=== PATIENT | male | born 1935 | race African-American/Black ===

== ENCOUNTER 2018-04-05 11:00 | Outpatient (CLI) | payer MEDICARE | END 2018-04-05 11:01 | disposition home or self-care (01) | LOC: BICRAD 11:00 | PROVIDERS: ATTEND Family Medicine | DX: R60.9 Edema, unspecified (principal); I10 Essential (primary) hypertension; J90 Pleural effusion, not elsewhere classified; I70.0 Atherosclerosis of aorta; I77.819 Aortic ectasia, unspecified site | CPT/HCPCS: 36415; 71046; 80048; 80061; 82043; 83036; 83880 ==

== ENCOUNTER 2018-07-09 15:14 | Observation (INO) | payer MEDICARE ==
[2018-07-09 16:00] LABS: #Eosinphils 0.1 thou/uL (0.0-0.7); #Lymphocytes 1.4 thou/uL (1.20-3.40); #Monocytes 0.4 thou/uL (0.11-0.59); #Neutrophils 4.7 thou/uL (1.40-6.50); %Basophils 0.4 % (0.0-1.0); %Lymphocytes 20.9 % (21.0-51.0); %Monocytes 5.5 % (0.0-10.0); %Neutrophils 71.3 % (42.0-75.0); Hemoglobin 9.3 g/dL (14.0-18.0); Mean Corpuscular HGB CONC 32.5 g/dL (32.0-36.0); Mean Corpuscular Hemoglobin 29.3 pg (27.0-31.0); Mean Corpuscular Volume 90.1 fL (78.0-98.0); Mean Platelet Volume 8.9 fL (7.4-10.4); Platelet Count 231 thou/uL (130-400); RBC Distribution Width 12.5 % (11.5-14.5); Red Blood Cell (RBC) Count 3.16 mill/uL (4.70-6.10); White Blood Cell (WBC) Count 6.6 thou/uL (4.8-10.8)
[2018-07-09 16:20] LABS: ALT (SGPT) 11 U/L (8-55); AST (SGOT) 13 U/L (5-34); Albumin 3.7 g/dL (3.4-4.8); Alkaline Phosphatase 77 U/L (40-150); Anion Gap 13 mmol/L (10-20); BUN (Urea Nitrogen) 37 mg/dL (8.4-25.7); Bilirubin, Total 0.6 mg/dL (0.2-1.2); Calc. Creatinine Clearance 0 mL/min (70-130); Calcium 9.2 mg/dL (7.8-10.44); Carbon Dioxide 24 mmol/L (23-31); Chloride 107 mmol/L (98-107); Estimated GFR-MDRD 40; Globulin 3.1 g/dL (2.4-3.5); Glucose 143 mg/dL (83-110); Potassium 4.4 mmol/L (3.5-5.1); Protein, Total 6.8 g/dL (5.8-8.1); Sodium 140 mmol/L (136-145)
[2018-07-09 16:24] LABS: Troponin I 0.075 ng/mL (< 0.028)
--- NOTE | 2018-07-09 16:30 | RAD ---
ONE VIEW CHEST: Comparison: 04-05-18 History: Cough. FINDINGS: Enlarged cardiac silhouette. Pulmonary vessels and hilum are normal. Right costophrenic angle is rylan r. Minimal blunting of the left costophrenic angle. Chronic changes in the lung parenchyma, without c onsolidation or mass. No pneumothorax or osseous abnormality. IMPRESSION: Minimal blunting of the left costophrenic angle likely due to small effusion or atelectasis. POS: [facility]
[2018-07-09 16:53] LABS: Bilirubin Negative (Negative); Blood, Urine Negative (Negative); Clarity CLEAR (Clear); Glucose, Urine (Dipstick) Negative (Negative); Leukocyte Negative (Negative); Nitrite Negative (Negative); Protein, Urine (Dipstick) 30 mg/dL (Neg-Trace); Specific Gravity, Urine 1.012 (1.002-1.036); Urobilinogen 0.2 mg/dL (0.2-1.0)
[2018-07-09 16:59] LABS: Bacteria/HPF None Seen HPF (None Seen); Hyaline Casts/LPF 4-6 HYALINE CAST LPF (0-3 Hyaline); Pathc Cast-AUWi Flag 0.58 (0-2.49); Squamous Epithelial None Seen HPF (0-3); WBC/HPF None Seen HPF (0-3)
[2018-07-09 19:13] LABS: Troponin I 0.067 ng/mL (< 0.028)
[2018-07-09] MEDS ORDERED: Ondansetron ODT 4 MG TAB SL PRN (20:30)
[2018-07-09] MEDS ORDERED: Acetaminophen 325 MG TAB PO PRN ×2 (20:30→21:02)
[2018-07-09] MEDS ORDERED: Ondansetron PF 4 MG/2 ML Vial IVP PRN (20:30)
[2018-07-09] MEDS ORDERED: hydrALAZINE 20 MG/ML VIAL SLOW IVP PRN (21:00)
[2018-07-09] MEDS ORDERED: Labetalol HCl 100 MG/20 ML VIAL SLOW IVP PRN (21:00)
[2018-07-09] MEDS ORDERED: Senokot S 8.6-50 MG TAB PO PRN (21:02)
[2018-07-09] MEDS ORDERED: Nitroglycerin 0.4 MG TAB (25 Tab Bottle) PO PRN (21:02)
[2018-07-09] MEDS ORDERED: Carvedilol 25 MG TAB PO SCH (21:15)
[2018-07-09] MEDS ORDERED: guaiFENesin ER 600 MG TAB PO SCH (21:15)
[2018-07-09 22:15] LABS: Troponin I 0.073 ng/mL (< 0.028)
[2018-07-09 23:30] VITALS: BMI 33.7
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
[2018-07-10 05:18] LABS: Anion Gap 14 mmol/L (10-20); BUN (Urea Nitrogen) 36 mg/dL (8.4-25.7); Calc. Creatinine Clearance 61 mL/min (70-130); Calcium 9.3 mg/dL (7.8-10.44); Carbon Dioxide 24 mmol/L (23-31); Chloride 107 mmol/L (98-107); Estimated GFR-MDRD 52; Glucose 93 mg/dL (83-110); Magnesium 1.7 mg/dL (1.6-2.6); Sodium 141 mmol/L (136-145)
[2018-07-10] MEDS ORDERED: Carvedilol 25 MG TAB PO SCH (08:00)
[2018-07-10] MEDS ORDERED: Chlorthalidone 25 MG TAB PO SCH (09:00)
[2018-07-10] MEDS ORDERED: AZILSARTAN MED PO SCH (09:00)
[2018-07-10] MEDS ORDERED: guaiFENesin ER 600 MG TAB PO SCH (09:00)
[2018-07-10] MEDS ORDERED: Aspirin 325 MG TAB PO SCH (09:00)
[2018-07-10] MEDS ORDERED: Aspirin 81 mg Enteric Coated Tablet PO SCH (09:00)
[2018-07-10] MEDS ORDERED: Isosorbide Dinitrate 20 MG TAB PO SCH (09:00)
[2018-07-10] MEDS ORDERED: Losartan 25 MG TAB PO SCH (09:00)
[2018-07-10] MEDS ORDERED: hydrALAZINE 25 MG TAB PO SCH (09:00)
[2018-07-10] MEDS ORDERED: CHLORTHALIDONE PO SCH (09:00)
[2018-07-10] MEDS ORDERED: Non-Formulary Item 1 EACH (Isosorb Dinit/Hydralazine Hcl [Bidil] 1 TABLET) PO SCH (09:00)
--- NOTE | 2018-07-10 10:07 | ULT ---
ULTRASOUND WITH DOPPLER DUPLEX VENOUS LOWER EXTREMITY BILATERAL: CPT: 09167 ICD-10-PCS: B54D HISTORY: Pain/edema. TECHNIQUE: Color flow Doppler, spectral waveform analysis of pulsed Doppler, and smith-scale imaging with gricel brigitte and augmentation, were used to evaluate the bilateral common femoral, femoral, popliteal, television news producer ior tibial, and superficial femoral, veins; and the proximal portions of the profunda femoral and gre ater saphenous, veins. FINDINGS: There is appropriate compressibility and flow within the imaged deep vein system of each lower extrem ity. IMPRESSION: No deep vein thrombosis. POS: [facility]
[2018-07-10 12:16] VITALS: BP 163/72; TEMP 97.8
--- NOTE | 2018-07-10 16:56 | CON ---
DATE OF CONSULTATION: 07/10/2018 HISTORY OF PRESENT ILLNESS: The patient is an 83-year-old gentleman who presented with lightheadedness and dizziness. The patient has a history of cardiomyopathy and was seen several weeks ago for cardiac evaluation. He underwent an echocardiogram, which revealed a mild decrease in left ventricular ejection fraction 45% with diastolic dysfunction. He also underwent a stress test that revealed him to have a mild decreased left ventricular ejection fraction 43% with evidence of inferior scar. The patient has poorly controlled hypertension. He has been placed on several different medications. The patient has been on Coreg and Edarbyclor. The patient most recently was started on Nifedipine. The patient presented with dizziness and lightheadedness. The patient denied having any chest discomfort. The patient denies having any PND or orthopnea. PAST MEDICAL HISTORY: 1. Cardiomyopathy. 2. Poorly controlled hypertension. 3. Diabetes mellitus. 4. Chronic lymphocytic leukemia. 5. Diverticulosis. PAST SURGICAL HISTORY: Hernia surgery,and cataract surgery. ALLERGIES: CODEINE. MEDICATIONS ON ADMISSION: Lasix 40 daily, BiDil 20/37.5 t.i.d., Edarbyclor 40/ 12.5 daily, Lasix 40 daily, potassium 10 daily, metformin 1000 b.i.d., aspirin 81 daily. SOCIAL HISTORY: Nonsmoker. FAMILY HISTORY: Positive family history of heart disease. PHYSICAL EXAMINATION: GENERAL: This is a well-developed gentleman in no acute distress. VITAL SIGNS: Blood pressure 163/72. NECK: No jugular venous distention. LUNGS: Clear to auscultation. HEART: Regular rate and rhythm. Normal S1, S2. No murmurs. ABDOMEN: Nondistended. EXTREMITIES: Mild bilateral edema. LABORATORY RESULTS: Sodium 141, potassium 4, chloride 107, bicarbonate 24, BUN 36, creatinine is 1.5. BNP is 204. Troponin is 0.075. White blood cell count 3.6, hemoglobin 9.3, hematocrit 28.5, platelets 231. EKG revealed normal sinus rhythm, first-degree AV block, right bundle branch block, and a left anterior fascicular block. IMPRESSION: 1. Near syncope, orthostatic hypotension. 2. Ischemic cardiomyopathy. 3. Hypertension. 4. Chronic renal insufficiency. This gentleman presents with near syncopal episode. His blood pressure was extremely low. From a cardiac standpoint, I agree with discontinuing his nifedipine. We would switch him back from Edarbyclor to losartan. The patient has declined to undergo an invasive cardiac evaluation, so he will continue on medical therapy. PLAN: 1. Discontinue nifedipine. 2. Switch from Edarbyclor back to losartan. 3. Improve compliance with low-sodium diet. 4. Weight loss. ELIZABETH
--- NOTE | 2018-07-10 17:01 | DIS ---
DATE OF DISCHARGE: 07/10/2018 DISCHARGE DISPOSITION: Home. FOLLOWUP: 1. Follow up with primary care physician, Dr. Christian Purdy in 1 week. 2. Follow up with Dr. Joel Zepeda next week. ALLERGIES: The patient is allergic to CODEINE. DISCHARGE MEDICATIONS: Aspirin 81 mg daily, Lasix 40 mg daily, BiDil 1 tablet 3 times a day, metform in 1000 mg b.i.d., potassium chloride 10 mEq daily, losartan 100 mg daily. MEDICATION DISCONTINUED THIS ADMISSION: Procardia-XL as well as Edarbyclor 40/12.5. The patient was advised to restart nifedipine extended release 30 mg daily if his blood pressure pers istently remains elevated. The patient was seen on the day of discharge, denies any new complaints, no chest pain, shortness of breath reported. BRIEF HOSPITAL COURSE: Patient is an 83-year-old male with hypertension, hyperlipidemia and diabetes mellitus type 2, presented to the hospital with a near syncopal episode. His blood pressure at home was systolic 75. He also had intermittent shortness of breath. No chest pain or palpitations repor kayla. He was monitored on the telemetry unit. His serial troponins remained in the indeterminate ran ge with maximum troponin of 0.075. BNP was 205. He was seen by Cardiology, Dr. Zepeda. His medic ations have been optimized as discussed above. Creatinine on admission was 1.94, at discharge was 1. 55. Diuretics have been discontinued. He was advised to monitor his blood pressure on a daily basis and to maintain a log. He will benefit from a repeat base met after 1-2 weeks, primary care physici an advised to follow. FINAL DIAGNOSES: 1. Near-syncopal episode secondary to hypotension. 2. Acute kidney injury, on chronic kidney disease stage 3, improved. 3. Diabetes mellitus type 2. 4. Abnormal electrocardiogram. 5. Elevated troponin secondary to demand ischemia. 6. Chronic anemia. 7. Degenerative joint disease. 8. Recent upper respiratory tract infection. Plan of care was discussed with the patient in detail. He stated understanding.
== END 2018-07-10 14:31 | disposition home or self-care (01) ==
LOC: ERS 15:14 → INTOOBSV 17:50 → 2SW 17:50
PROVIDERS: ADMIT Internal Medicine; ATTEND Internal Medicine
DX: I95.1 Orthostatic hypotension (principal); M19.90 Unspecified osteoarthritis, unspecified site; I12.9 Hypertensive chronic kidney disease with stage 1 through stage 4 chronic kidney disease, or unspecified chronic kidney disease; E11.22 Type 2 diabetes mellitus with diabetic chronic kidney disease; N18.3 Chronic kidney disease, stage 3 (moderate); D63.1 Anemia in chronic kidney disease; N17.9 Acute kidney failure, unspecified; I25.5 Ischemic cardiomyopathy; E78.5 Hyperlipidemia, unspecified; Z85.6 Personal history of leukemia; Z87.891 Personal history of nicotine dependence; Z79.82 Long term (current) use of aspirin; Z79.84 Long term (current) use of oral hypoglycemic drugs; Z79.899 Other long term (current) drug therapy; Z88.5 Allergy status to narcotic agent
CPT/HCPCS: 71045; 80048; 80053; 83605; 83735; 83880; 84484 ×2; 85025; 87040; 87086; 93005; 93970; 94640; 96360; 96361; 97139; 99285; G0378 ×2; 36415; 81003; 81015; J7620

== ENCOUNTER 2018-08-24 10:48 | Outpatient (CLI) | payer MEDICARE ==
[2018-08-24] MEDS ORDERED: ISOVUE-370 76%-LOCM 1 ML ONE (11:10)
--- NOTE | 2018-08-24 13:58 | CT ---
CT CHEST WITH CONTRAST CT ABDOMEN WITH CONTRAST CT PELVIS WITH CONTRAST: Date: 08/24/18 HISTORY: Lymphoma/leukemia. 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 COMPARISON: CT from 08/24/16. FINDINGS: There are enlarging mediastinal lymph nodes. There is a left paratracheal lymph node on axial image 2 6 that measures 12.0 mm in short axis, previously 5.0 mm. Left paratracheal lymph node measures 16.0 mm in short axis, previously 6.0 mm, with a normal fatty hilum. There is a small pericardial effusion , although larger than on the prior examination. No axillary adenopathy. No internal mammary adenopathy. Thyroid is unremarkable. Pulmonary trunk size is normal. The aorta is mildly tortuous. Multiple small pulmonary lung cysts. Moderate layering right pleural effusion. There is bronchiectasi s within the left lower lobe and right lower lobe, likely sequelae of prior infection. No pneumothora x. There is cholelithiasis without evidence of cholecystitis. Liver and spleen are unremarkable. Mild no dular thickening both adrenal glands. There is abnormal focal thickening of the left ureter, axial image 102, at the level of the pelvic br im, new from the comparison examination. It is possible that this could be a lymph node, although the focal dilatation is felt more likely with focal soft tissue thickening. Numerous small retroperitone al periaortic lymph nodes. Aortocaval lymph node axial image 75 measures 7.0 mm in short axis, previo usly 4.0 mm. There is mild third spacing of fluid, which is new. The appendix is felt to be visualize d and is normal. Moderate vascular plaque of the aortoiliac system. Old compression deformity at T11 and T12. No suspicious osteolytic or osteoblastic lesions of the ske leton. No acute displaced rib fracture. IMPRESSION: 1. Interval size increase of mediastinal lymph nodes, as well as mild size increase of retroperitone al periaortic lymph nodes, concerning for disease recurrence. 2. Calcified right paratracheal lymph nodes are similar, likely prior granulomatous disease versus s equelae of prior treatment. 3. Moderate right and small left pleural effusion, as well as third spacing of fluid throughout the abdomen and pelvis, can be seen with congestive heart failure. There is also small, slightly increase d in size pericardial effusion. 4. Abnormal thickened left distal ureter at the pelvic brim. Nonemergent CT Urogram would be benefici al. CODE T. POS: [facility]
== END 2018-08-24 10:49 | disposition home or self-care (01) ==
LOC: BICCT 10:48
PROVIDERS: ATTEND Internal Medicine Medical Oncology
DX: C83.08 Small cell B-cell lymphoma, lymph nodes of multiple sites (principal); J90 Pleural effusion, not elsewhere classified; I31.3 Pericardial effusion (noninflammatory); R93.41 Abnormal radiologic findings on diagnostic imaging of renal pelvis, ureter, or bladder
CPT/HCPCS: 71260; 74177

== ENCOUNTER 2018-09-07 12:06 | Outpatient (CLI) | payer MEDICARE ==
--- NOTE | 2018-09-07 13:02 | RAD ---
CHEST 2 VIEWS: HISTORY: Cough. Dyspnea. COMPARISON: CT from 08/24/2018. FINDINGS: Cardiac silhouette and pulmonary vasculature are unremarkable. Opacity projecting over the right lat eral lung base has the appearance of right basilar infiltrate that has developed since the prior stud y. A small amount of bilateral pleural fluid is again demonstrated. Some atelectasis lateral segmen t right middle lobe. Left lung remains clear aside from minimal linear scarring or atelectasis at th e lateral base. IMPRESSION: 1. Mild right basilar infiltrate with atelectasis in the lateral segment right middle lobe. This corado s developed since the CT exam from 08/24/2018. 2. Small amount of bilateral pleural fluid is stable. POS: [facility]
== END 2018-09-07 12:07 | disposition home or self-care (01) ==
LOC: BICRAD 12:06
PROVIDERS: ATTEND Family Medicine
DX: I10 Essential (primary) hypertension (principal); R05 Cough; R60.9 Edema, unspecified; J98.11 Atelectasis; R91.8 Other nonspecific abnormal finding of lung field
CPT/HCPCS: 36415; 71046; 80048; 85025

== ENCOUNTER 2018-09-08 02:46 | Inpatient (IN) | payer MEDICARE ==
[2018-09-08 03:27] LABS: #Eosinphils 0.1 thou/uL (0.0-0.7); #Lymphocytes 1.5 thou/uL (1.20-3.40); #Monocytes 0.6 thou/uL (0.11-0.59); #Neutrophils 4.6 thou/uL (1.40-6.50); %Basophils 0.7 % (0.0-1.0); %Eosinophils 1.5 % (0.0-10.0); %Lymphocytes 21.6 % (21.0-51.0); %Monocytes 9.4 % (0.0-10.0); %Neutrophils 66.9 % (42.0-75.0); Hemoglobin 9.3 g/dL (14.0-18.0); Mean Corpuscular HGB CONC 31.4 g/dL (32.0-36.0); Mean Corpuscular Hemoglobin 28.5 pg (27.0-31.0); Mean Corpuscular Volume 90.7 fL (78.0-98.0); Mean Platelet Volume 7.9 fL (7.4-10.4); Platelet Count 237 thou/uL (130-400); RBC Distribution Width 14.4 % (11.5-14.5); Red Blood Cell (RBC) Count 3.26 mill/uL (4.70-6.10); White Blood Cell (WBC) Count 6.9 thou/uL (4.8-10.8)
[2018-09-08 03:43] LABS: ALT (SGPT) 33 U/L (8-55); AST (SGOT) 25 U/L (5-34); Albumin 3.5 g/dL (3.4-4.8); Alkaline Phosphatase 75 U/L (40-150); Anion Gap 15 mmol/L (10-20); BUN (Urea Nitrogen) 39 mg/dL (8.4-25.7); Bilirubin, Total 0.8 mg/dL (0.2-1.2); Calc. Creatinine Clearance 0 mL/min (70-130); Calcium 9.2 mg/dL (7.8-10.44); Carbon Dioxide 21 mmol/L (23-31); Chloride 106 mmol/L (98-107); Estimated GFR-MDRD 42; Globulin 3.2 g/dL (2.4-3.5); Glucose 105 mg/dL (83-110); Potassium 4.4 mmol/L (3.5-5.1); Protein, Total 6.7 g/dL (5.8-8.1); Sodium 138 mmol/L (136-145)
[2018-09-08 05:07] LABS: CK (CPK) 177 U/L (30-200); Lipase 11 U/L (8-78)
[2018-09-08 05:24] LABS: CKMB 2.3 ng/mL (0-6.6)
[2018-09-08] MEDS ORDERED: Aspirin Chewable 81 MG TAB ONE (06:23)
[2018-09-08] MEDS ORDERED: Furosemide 40 MG/4 ML VIAL ONE ×2 (06:23→15:19)
[2018-09-08] MEDS ORDERED: Nitroglycerin 2% Ointment 1 INCH/1 GM Packet ONE (06:23)
[2018-09-08 06:44] LABS: Troponin I 0.069 ng/mL (< 0.028)
[2018-09-08] MEDS ORDERED: Dextrose 50% Abboject 50 ML SYRINGE SLOW IVP PRN (07:42)
[2018-09-08] MEDS ORDERED: Ondansetron ODT 4 MG TAB PO PRN (07:42)
[2018-09-08] MEDS ORDERED: Acetaminophen 325 MG TAB PO PRN (07:42)
[2018-09-08] MEDS ORDERED: Dextrose 5% in Water 1,000 ML IV PRN (07:42)
[2018-09-08] MEDS ORDERED: Zolpidem Tartrate 5 MG TAB PO PRN (07:42)
--- NOTE | 2018-09-08 08:35 | HP ---
PRIMARY CARE PHYSICIAN: Dr. Christian Purdy. [facility]. HISTORY OF PRESENT ILLNESS: The patient presents with shortness of breath, progressive x7 days. He has two-pillow orthopnea, paroxysmal nocturnal dyspnea, cough productive of some of colored sputum. His dyspnea on exertion is not as bad as his dyspnea, supine. He has no fever, no shaking chills. No pressured chest pain or other chest pain. REVIEW OF SYSTEMS: HEAD: No headaches, dizziness, or fainting. EYES: He has blurred vision at times. He notices eyes are mattering. EAR, NOSE, AND THROAT: No ear pain or drainage. No nasal bleeding. No trouble swallowing. CARDIAC: See present illness. RESPIRATIONS: He does have a cough. He has no wheezing. No asthma. GASTROINTESTINAL: No nausea, vomiting, diarrhea, abdominal pain, or melena. GENITOURINARY: No hematuria or dysuria. MUSCULOSKELETAL: Marked swelling in his legs. No muscle pains or joint pains. PSYCHIATRIC: No anxiety or depression. NEUROLOGICAL: No strokes, seizures, or focal weakness. SKIN: No bruises, bleeding, or rash. HEME/LYMPH: No tender or swollen lymph nodes in axilla, inguinal, or cervical area. PAST MEDICAL HISTORY: Pertinent for recent pneumonia; congestive heart failure; cardiomyopathy, EF about 45%; hypertension; diabetes mellitus type 2 with chronic kidney disease; dyslipidemia; history of chronic lymphocytic leukemia per record. ALLERGIES: CODEINE. CURRENT MEDICATIONS: 1. Lipitor 20 mg a day. 2. Lasix 40 mg a day p.r.n. He has only recently started taking it daily. 3. Potassium chloride 10 mEq a day with the Lasix. 4. He has been on levofloxacin recently. 5. Coreg 25 mg twice a day. 6. Losartan 100 mg a day. 7. Nifedipine 60 mg a day. 8. Metformin 1000 mg twice a day. 9. BiDil 20/37.5 three times a day. 10. Aspirin 81 mg a day. PAST SURGICAL HISTORY: Hernia repair, cataract surgery, colonoscopy, excisional biopsy of lymphoma. SOCIAL HISTORY: Lives at home. Full code status. at bedside. Former smoker, none recently. Denies alcohol. FAMILY HISTORY: Positive for hypertension, diabetes mellitus type 2, prostate cancer, hematologic disorder related to clotting. Mother had a stroke. PHYSICAL EXAMINATION: GENERAL: Alert, oriented, cooperative, pleasant gentleman. VITAL SIGNS: Blood pressure 147/76, pulse 63, respirations 20, temperature 98.2. HEAD, EYES, EARS, NOSE, AND THROAT: Revealed pupils equal and round. Extraocular movements are intact. Sclerae are white. Tympanic membranes are clear. Nose is clear. Oral mucous membranes are wet. Dental hygiene is good. NECK: Supple without jugular venous distention, adenopathy, or thyromegaly. CHEST: Clear anterior. Lower lobe rales posteriorly. HEART: Regular rate and rhythm. First and second heart sounds clear. No appreciated murmurs or gallops. ABDOMEN: Soft. Bowel sounds are normal. There is no hepatosplenomegaly. No mass. No rebound. EXTREMITIES: Reveal 2+ edema with no cyanosis or clubbing. The edema comes up to just distal to the knee. PULSES: Carotid, radial, and femoral and dorsalis pedis pulses intact and symmetric. SKIN: Warm and dry without bruises or rash. HEME/LYMPH: No tender or swollen lymph nodes in axilla, inguinal, or cervical area. NEUROLOGIC: Cranial nerves II through XII are intact. Moves all extremities. Sensations intact. IMAGING STUDIES: Chest x-ray reviewed by me. Borderline cardiomegaly, pulmonary vascular congestion with blurring of the diaphragms bilaterally, left pleural effusion. EKG; regular sinus rhythm with complete left bundle-branch block reviewed by me. LABORATORY DATA: White count 6.9, hemoglobin 9.3, platelet count 237,000. Comprehensive metabolic profile; creatinine 1.87, BUN 39, CO2 of 21. The remainder is normal. Lactic acid is 0.8. Troponin 0.088, 0.069. BNP 400.6. ADMITTING DIAGNOSES: Acute on chronic systolic heart failure, demand ischemia versus [id number] myocardial infarction; hypertension; diabetes mellitus type 2; with chronic kidney disease stage 3; cardiomyopathy. PLAN: 1. Lasix 40 mg IV q.12 hours. 2. Accu-Cheks, sliding scale. 3. Selected home medicines. 4. Echocardiogram. 5. Cardiology consult with Dr. Zepeda. This patient will need at least 2 probably 3 overnights for compensation of his heart failure. Job ID: [id number]
[2018-09-08] MEDS ORDERED: Aspirin 325 MG TAB PO SCH (09:00)
--- NOTE | 2018-09-08 09:31 | RAD ---
CHEST ONE VIEW PORTABLE: History: Chest pain. Cough. Recently diagnosed with pneumonia. Comparison: 09-07-18 FINDINGS: There is cardiomegaly with bilateral vascular congestion and small bilateral pleural effusions concer aditya for minimal congestive heart failure. No confluent lobar pneumonia. IMPRESSION: Cardiomegaly with vascular congestion and bilateral pleural effusions, evidence for congestive heart failure. No confluent lobar pneumonia. Old granulomatous disease. Prominent atherosclerotic ectatic c hanges. POS: [facility]
[2018-09-08] MEDS: Isosorbide Dinitrate 20 MG TAB PO SCH ×2 (15:26→21:06)
[2018-09-08] MEDS: Furosemide 40 MG/4 ML VIAL SLOW IVP SCH (15:30)
[2018-09-08 17:29] VITALS: BMI 32.5
[2018-09-08] MEDS: Potassium Chloride 20 MEQ TAB PO SCH (19:30)
[2018-09-08] MEDS: Carvedilol 25 MG TAB PO SCH (19:30)
[2018-09-08] MEDS: Enoxaparin Sodium 40 MG/0.4 ML SYRINGE SC SCH (20:17)
[2018-09-08] MEDS: hydrALAZINE 25 MG TAB PO SCH ×2 (20:18→21:01)
[2018-09-08] MEDS ORDERED: Carvedilol 25 MG TAB PO SCH (21:00)
[2018-09-08] MEDS ORDERED: Atorvastatin Calcium 20 MG TAB PO SCH (21:00)
[2018-09-08] MEDS: Atorvastatin Calcium 20 MG TAB PO SCH (21:01)
[2018-09-09 05:45] LABS: Anion Gap 14 mmol/L (10-20); BUN (Urea Nitrogen) 35 mg/dL (8.4-25.7); Calc. Creatinine Clearance 52 mL/min (70-130); Calcium 9.2 mg/dL (7.8-10.44); Carbon Dioxide 22 mmol/L (23-31); Chloride 105 mmol/L (98-107); Estimated GFR-MDRD 47; Glucose 82 mg/dL (83-110); Potassium 4.4 mmol/L (3.5-5.1); Sodium 137 mmol/L (136-145)
[2018-09-09] MEDS: Furosemide 40 MG/4 ML VIAL SLOW IVP SCH ×2 (05:56→14:15)
--- NOTE | 2018-09-09 06:31 | CON ---
DATE OF CONSULTATION: The patient is an 83-year-old gentleman with a history of congestive heart failure, who presents with increasing dyspnea. The patient has a history of cardiomyopathy. He has previously been found to have a mild decrease in left ventricular systolic function. He has been subsequent on medical therapy. He recently noticed having increasing dyspnea. He had the dose of the Lasix increased. The patient felt poorly and presented to the emergency room with increasing dyspnea. PAST MEDICAL HISTORY: 1. Cardiomyopathy. 2. Hypertension. 3. Diabetes mellitus. 4. CLL. 5. Diverticulosis. PAST SURGICAL: Hernia surgery, cataract surgery. ALLERGIES: CODEINE. SOCIAL HISTORY: Nonsmoker. MEDICATIONS: 1. Lipitor 20 at bedtime. 2. Lasix 40 daily. 3. Coreg 25 b.i.d. 4. Losartan 100 daily. 5. Aspirin 81 daily. 6. BiDil 20/30 7.5 t.i.d. 7. Potassium 10 mEq daily. 8. Metformin 1000 b.i.d. 9. Nifedipine 60 XL daily. FAMILY HISTORY: Positive family history of heart disease. REVIEW OF SYSTEMS: Noticeable for increasing weakness. PHYSICAL EXAMINATION: GENERAL: Obese gentleman, in no acute distress. VITAL SIGNS: Blood pressure is 140/70. NECK: Full. LUNGS: Few crackles in both bases. HEART: Regular rate and rhythm. Normal S1, S2. ABDOMEN: Nondistended. EXTREMITIES: Showed mild bilateral edema. NEUROLOGIC: Nonfocal. DIAGNOSTIC DATA: Chest x-ray revealed cardiomegaly with mild pulmonary edema. LABORATORY RESULTS: Sodium 138, potassium 4.4, chloride 106, bicarbonate 21, BUN 39, creatinine 1.87. Troponin was 0.069. BNP 400. White blood cell count 6.9, hemoglobin 9.3, hematocrit 29.3, platelets are 237. IMPRESSION: 1. Congestive heart failure. 2. Hypertension. 3. Dyslipidemia. 4. Diabetes mellitus. 5. Chronic lymphocytic leukemia. This gentleman presents with congestive heart failure who recently had the dose of his Lasix increased. At this time, the patient will be diuresed with his elevated creatinine. We will hold his losartan and discontinue his nifedipine. We would treat the patient with BiDil and Coreg. The patient undergo repeat echocardiogram. We will follow this patient with you through his hospitalization. Job ID: [id number] [facility]
[2018-09-09] MEDS: Potassium Chloride 20 MEQ TAB PO SCH ×2 (08:46→18:00)
[2018-09-09] MEDS: hydrALAZINE 25 MG TAB PO SCH ×3 (08:46→21:05)
[2018-09-09] MEDS: Enoxaparin Sodium 40 MG/0.4 ML SYRINGE SC SCH (08:46)
[2018-09-09] MEDS: NIFEdipine XL 60 MG TAB PO SCH (08:47)
[2018-09-09] MEDS: Carvedilol 25 MG TAB PO SCH ×2 (08:47→18:00)
[2018-09-09] MEDS: Isosorbide Dinitrate 20 MG TAB PO SCH ×3 (08:47→21:05)
[2018-09-09] MEDS: Aspirin 81 mg Enteric Coated Tablet PO SCH (08:47)
[2018-09-09] MEDS ORDERED: Potassium Chloride 10 MEQ TAB PO SCH (09:00)
--- NOTE | 2018-09-09 09:57 | PDOC.PN ---
- Subjective Encounter Start Date: 09/09/18 (f/u DM) Encounter Start Time: 09:54 Subjective: pt reports breathing today is more comfortable. denies headache. did -: note some wheezing sensation overnight that he's had for a few nights. -: leg swelling improved - Objective Resuscitation Status - Order Detail: 09/08/18 07:36 Resuscitation Status Routine Resuscitation Status: FULL: Full Resuscitation Vital Signs & Weight: Vital Signs (12 hours) Temp Pulse Resp BP Pulse Ox 09/09/18 08:47 62 09/09/18 08:46 62 09/09/18 08:43 98.4 F 62 18 172/74 H 97 09/09/18 05:45 98.5 F 64 14 162/74 H 96 09/08/18 23:30 98.4 F 63 20 145/64 H 96 Weight Weight 236 lb 8 oz I&O: 09/08/18 09/09/18 09/10/18 06:59 06:59 06:59 Intake Total 320 Output Total 500 Balance -180 Result Diagrams: 09/08/18 03:15 09/09/18 04:13 Additional Labs: Accuchecks 09/09/18 09/08/18 06:26 20:12 POC Glucose 89 97 EKG Reviewed by me: Yes (tele - sinus 60's, few pvc') Phys Exam - Physical Examination Constitutional: NAD Respiratory: no wheezing, no rales decreased breath sounds at left base Cardiovascular: RRR, no significant murmur Gastrointestinal: soft, non-tender, positive bowel sounds Musculoskeletal: no edema, edema present Neurological: non-focal, moves all 4 limbs Psychiatric: normal affect, A&O x 3 Skin: no rash Dx/Plan (1) Acute on chronic heart failure Code(s): I50.9 - HEART FAILURE, UNSPECIFIED Status: Acute Qualifiers: Heart failure type: combined systolic and diastolic Qualified Code(s): I50.43 - Acute on chronic combined systolic (congestive) and diastolic ( congestive) heart failure (2) Hypertension Code(s): I10 - ESSENTIAL (PRIMARY) HYPERTENSION Status: Chronic Qualifiers: Hypertension type: essential hypertension Qualified Code(s): I10 - Essential (primary) hypertension (3) CKD (chronic kidney disease) Code(s): N18.9 - CHRONIC KIDNEY DISEASE, UNSPECIFIED Status: Chronic Qualifiers: Chronic kidney disease stage: stage 3 (moderate) Qualified Code(s): N18.3 - Chronic kidney disease, stage 3 (moderate) (4) Dyslipidemia Code(s): E78.5 - HYPERLIPIDEMIA, UNSPECIFIED Status: Chronic (5) Diabetes mellitus Code(s): E11.9 - TYPE 2 DIABETES MELLITUS WITHOUT COMPLICATIONS Status: Chronic Qualifiers: Diabetes mellitus type: type 2 Diabetes mellitus dosimetrist insulin use: without dosimetrist use Diabetes mellitus complication detail: with chronic kidney disease Chronic kidney disease stage: stage 3 (moderate) - Plan * Pt responding well to diuresis - continue IV lasix and monitoring renal function * dm well controlled - continue ISS and holding metformin * htn controlled -c ontinue current meds including beta jesus, hydralazine, bidil, nifedipine, aspirin and statin * * reviewed changes in medications for now and reasoning, holding of antibiotics as this appears heart failure * anticipate another 1-2 days of diuresis to optimize * echo ordered * * dvt prophy -scd's and ambulation encouraged * gi prophy - not indicated * code status full * reviewed plan of care with patient/, no qeustions or further needs at end of eval * pt remains at high risk in current condition.
--- NOTE | 2018-09-09 15:09 | PDOC.CTH ---
Cardiology Progress Note - Subjective Doing well. No new issues. - Objective Vital Signs Temp Pulse Resp BP Pulse Ox 09/09/18 14:15 64 09/09/18 14:13 98.3 F 64 18 149/65 H 93 L 09/09/18 08:47 62 09/09/18 08:46 62 09/09/18 08:43 98.4 F 62 18 172/74 H 97 09/09/18 05:45 98.5 F 64 14 162/74 H 96 Weight 236 lb 8 oz 09/08/18 09/09/18 09/10/18 06:59 06:59 06:59 Intake Total 320 120 Output Total 500 Balance -180 120 - Physical Examination General/Neuro: alert & oriented x3, NAD Neck: no JVD present Lungs: unlabored respirations Heart: RRR Abdomen: NT/ND Extremities: + edema B (trace) - Telemetry Telemetry Rhythm: NSR - Labs Result Diagrams: 09/08/18 03:15 09/09/18 04:13 Troponin/CKMB CK-MB (CK-2) 2.3 ng/mL (0-6.6) 09/08/18 03:15 Troponin I 0.069 ng/mL (< 0.028) H 09/08/18 05:43 - Assessment/Plan 1. Acute on chronic systolic heart failure. 2. HTN 3. HLP 4. CLL PLAN: - Continue IV lasix. - Coreg and BiDil secondary to kidney disease. - Echo pending.
[2018-09-09] MEDS: Atorvastatin Calcium 20 MG TAB PO SCH (21:05)
[2018-09-10] MEDS: Furosemide 40 MG/4 ML VIAL SLOW IVP SCH (05:46)
[2018-09-10 06:12] LABS: Anion Gap 14 mmol/L (10-20); BUN (Urea Nitrogen) 36 mg/dL (8.4-25.7); Calc. Creatinine Clearance 50 mL/min (70-130); Calcium 9.4 mg/dL (7.8-10.44); Carbon Dioxide 24 mmol/L (23-31); Chloride 107 mmol/L (98-107); Estimated GFR-MDRD 45; Glucose 98 mg/dL (83-110); Potassium 4.5 mmol/L (3.5-5.1); Sodium 140 mmol/L (136-145)
[2018-09-10] MEDS ORDERED: Sodium Chloride 0.9% 10 ML ONE (08:02)
[2018-09-10] MEDS: NIFEdipine XL 60 MG TAB PO SCH (09:10)
[2018-09-10] MEDS: Potassium Chloride 20 MEQ TAB PO SCH ×2 (09:10→17:08)
[2018-09-10] MEDS: Aspirin 81 mg Enteric Coated Tablet PO SCH (09:11)
[2018-09-10] MEDS: hydrALAZINE 25 MG TAB PO SCH ×3 (09:11→21:03)
[2018-09-10] MEDS: Isosorbide Dinitrate 20 MG TAB PO SCH ×3 (09:12→21:03)
[2018-09-10] MEDS: Carvedilol 25 MG TAB PO SCH ×2 (09:12→17:08)
[2018-09-10] MEDS: Enoxaparin Sodium 40 MG/0.4 ML SYRINGE SC SCH (09:13)
--- NOTE | 2018-09-10 10:42 | PDOC.PN ---
- Subjective Encounter Start Date: 09/10/18 (f/u DM) Encounter Start Time: 10:39 Subjective: Pt feeling good - reports breathing is better. Cough is productive -: of light green mucous. Some runny nose. No BM since admission - Objective Resuscitation Status - Order Detail: 09/08/18 07:36 Resuscitation Status Routine Resuscitation Status: FULL: Full Resuscitation Vital Signs & Weight: Vital Signs (12 hours) Temp Pulse Resp BP BP Pulse Ox 09/10/18 09:11 64 09/10/18 09:10 64 145/65 H 09/10/18 08:58 98.4 F 64 18 145/65 H 94 L 09/10/18 04:51 98.5 F 65 16 166/70 H 93 L Weight Weight 235 lb 3.2 oz I&O: 09/09/18 09/10/18 09/11/18 06:59 06:59 06:59 Intake Total 320 840 Output Total 500 450 Balance -180 390 Result Diagrams: 09/08/18 03:15 09/10/18 04:51 Additional Labs: Accuchecks 09/09/18 16:46 POC Glucose 111 H EKG Reviewed by me: Yes (tele - sinus 60's) Phys Exam - Physical Examination Constitutional: NAD Respiratory: no wheezing, no rales, no rhonchi, clear to auscultation bilateral Cardiovascular: RRR, no significant murmur Gastrointestinal: soft, non-tender, no distention, positive bowel sounds Musculoskeletal: no edema in LE Neurological: non-focal, moves all 4 limbs Skin: no rash Dx/Plan (1) Acute on chronic heart failure Code(s): I50.9 - HEART FAILURE, UNSPECIFIED Status: Acute Qualifiers: Heart failure type: combined systolic and diastolic Qualified Code(s): I50.43 - Acute on chronic combined systolic (congestive) and diastolic ( congestive) heart failure (2) Hypertension Code(s): I10 - ESSENTIAL (PRIMARY) HYPERTENSION Status: Chronic Qualifiers: Hypertension type: essential hypertension Qualified Code(s): I10 - Essential (primary) hypertension (3) CKD (chronic kidney disease) Code(s): N18.9 - CHRONIC KIDNEY DISEASE, UNSPECIFIED Status: Chronic Qualifiers: Chronic kidney disease stage: stage 3 (moderate) Qualified Code(s): N18.3 - Chronic kidney disease, stage 3 (moderate) (4) Dyslipidemia Code(s): E78.5 - HYPERLIPIDEMIA, UNSPECIFIED Status: Chronic (5) Diabetes mellitus Code(s): E11.9 - TYPE 2 DIABETES MELLITUS WITHOUT COMPLICATIONS Status: Chronic Qualifiers: Diabetes mellitus type: type 2 Diabetes mellitus detention insulin use: without 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 Change to lasix PO BID * bp not well controlled - will incresae hydralazine to 50 mg TID * dm well controlled - continue ISS and holding metformin * * continue other meds as ordered * * echo in chart from 18 Aug as outpatient - no indication to repeat one here * * persistent cough - will order CXR now that pt has diuresed * * miralax now and daily for constipation * * dvt prophy -scd's and ambulation encouraged * gi prophy - not indicated * code status full * reviewed plan of care with patient/, no qeustions or further needs at end of eval * pt remains at high risk in current condition.. * 18:15 - reviewed XR and no evidence of pneumonia. no indication for antibiotics - this was initiated prior to this admission and stopped with this admission. Reviewed wiht patient/. Anticipate d/c in AM with oral lasix, close follow up with cardiology, referral to the HF clinic. 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 Dent in [place]. No questions at end of discussion. Pt will need to be advised of which meds to stop (ARB) and new medications here.
[2018-09-10] MEDS ORDERED: Polyethylene Glycol 3350 17 GM Packet PO SCH (11:00)
--- NOTE | 2018-09-10 11:49 | RAD ---
PA AND LATERAL VIEWS CHEST: HISTORY: Persistent cough. FINDINGS/IMPRESSION: Comparison is made with the exam of 09/08/2018. The heart size is enlarged. Small bilateral pleural effusions are seen. No focal areas of consolida tion or pneumothoraces are identified. There is evidence of old granulomatous disease. No lobar con solidation is seen. POS: [facility]
[2018-09-10] MEDS: Furosemide 40 MG TAB PO SCH (14:55)
--- NOTE | 2018-09-10 17:44 | PDOC.CTH ---
Cardiology Progress Note - Subjective Breathing at baseline. No new issues. - Objective Vital Signs Temp Pulse Pulse Pulse Resp BP BP 09/10/18 16:58 97.4 F L 68 18 09/10/18 14:55 68 127/60 09/10/18 12:44 67 58 L 156/69 H 09/10/18 11:10 98.2 F 65 19 09/10/18 09:11 64 09/10/18 09:10 64 145/65 H 09/10/18 08:58 98.4 F 64 18 BP BP Pulse Ox 09/10/18 16:58 130/62 93 L 09/10/18 14:55 09/10/18 12:44 127/80 09/10/18 11:10 127/60 94 L 09/10/18 09:11 09/10/18 09:10 09/10/18 08:58 145/65 H 94 L Weight 235 lb 3.2 oz 09/09/18 09/10/18 09/11/18 06:59 06:59 06:59 Intake Total 320 840 Output Total 500 450 Balance -180 390 - Physical Examination General/Neuro: alert & oriented x3, NAD Neck: no JVD present Lungs: CTA, unlabored respirations Heart: RRR Abdomen: NT/ND Extremities: other: (no edema) - Telemetry Telemetry Rhythm: NSR - Labs Result Diagrams: 09/08/18 03:15 09/10/18 04:51 Troponin/CKMB CK-MB (CK-2) 2.3 ng/mL (0-6.6) 09/08/18 03:15 Troponin I 0.069 ng/mL (< 0.028) H 09/08/18 05:43 - Assessment/Plan 1. Acute on chronic systolic heart failure. 2. HTN 3. HLP 4. CLL PLAN: - Switch to PO lasix. - Coreg and BiDil secondary to kidney disease.
[2018-09-10] MEDS: Atorvastatin Calcium 20 MG TAB PO SCH (21:03)
[2018-09-11 05:34] LABS: Anion Gap 17 mmol/L (10-20); BUN (Urea Nitrogen) 32 mg/dL (8.4-25.7); Calc. Creatinine Clearance 54 mL/min (70-130); Calcium 9.2 mg/dL (7.8-10.44); Carbon Dioxide 22 mmol/L (23-31); Chloride 108 mmol/L (98-107); Estimated GFR-MDRD 49; Glucose 110 mg/dL (83-110); Potassium 4.5 mmol/L (3.5-5.1); Sodium 142 mmol/L (136-145)
[2018-09-11] MEDS ORDERED: NIFEdipine XL 60 MG TAB PO SCH (09:00)
[2018-09-11] MEDS ORDERED: Polyethylene Glycol 3350 17 GM Packet PO SCH (09:00)
--- NOTE | 2018-09-11 09:40 | PDOC.PN ---
- Subjective Encounter Start Date: 09/11/18 Encounter Start Time: 12:20 Subjective: Patient reports no CP, no SOB. Ambulating well. Ready to go home. - Objective Resuscitation Status - Order Detail: 09/08/18 07:36 Resuscitation Status Routine Resuscitation Status: FULL: Full Resuscitation MAR Reviewed: Yes Vital Signs & Weight: Vital Signs (12 hours) Temp Pulse Resp BP Pulse Ox 09/11/18 08:01 97.9 F 70 16 129/84 94 L 09/11/18 03:28 98.4 F 62 16 159/71 H 91 L Weight Weight 229 lb I&O: 09/10/18 09/11/18 09/12/18 06:59 06:59 06:59 Intake Total 840 1360 Output Total 450 2320 Balance 390 -960 Result Diagrams: 09/08/18 03:15 09/11/18 04:20 Phys Exam - Physical Examination Constitutional: NAD HEENT: moist MMs Respiratory: no wheezing, no rales, no rhonchi Cardiovascular: RRR Gastrointestinal: soft, positive bowel sounds Musculoskeletal: no edema Neurological: non-focal, moves all 4 limbs Psychiatric: normal affect, A&O x 3 Dx/Plan (1) Acute on chronic heart failure Code(s): I50.9 - HEART FAILURE, UNSPECIFIED Status: Acute Qualifiers: Heart failure type: combined systolic and diastolic Qualified Code(s): I50.43 - Acute on chronic combined systolic (congestive) and diastolic ( congestive) heart failure Comment: improved with diuresis (2) Hypertension Code(s): I10 - ESSENTIAL (PRIMARY) HYPERTENSION Status: Chronic Qualifiers: Hypertension type: essential hypertension Qualified Code(s): I10 - Essential (primary) hypertension (3) CKD (chronic kidney disease) Code(s): N18.9 - CHRONIC KIDNEY DISEASE, UNSPECIFIED Status: Chronic Qualifiers: Chronic kidney disease stage: stage 3 (moderate) Qualified Code(s): N18.3 - Chronic kidney disease, stage 3 (moderate) Comment: stable, no CHRISTINA-I/ARB for CHF (4) Diabetes mellitus Code(s): E11.9 - TYPE 2 DIABETES MELLITUS WITHOUT COMPLICATIONS Status: Chronic Qualifiers: Diabetes mellitus type: type 2 Diabetes mellitus fdc insulin use: without fdc use Diabetes mellitus complication detail: with chronic kidney disease Chronic kidney disease stage: stage 3 (moderate) (5) Dyslipidemia Code(s): E78.5 - HYPERLIPIDEMIA, UNSPECIFIED Status: Chronic - Plan cont current plan of care, PT/OT D/c home. * . - Discharge Day Encounter end time: 12:30
[2018-09-11] MEDS: Enoxaparin Sodium 40 MG/0.4 ML SYRINGE SC SCH (09:52)
[2018-09-11] MEDS: hydrALAZINE 25 MG TAB PO SCH ×2 (09:53→14:28)
[2018-09-11] MEDS: Furosemide 40 MG TAB PO SCH ×2 (09:53→14:28)
[2018-09-11] MEDS: Carvedilol 25 MG TAB PO SCH (09:53)
[2018-09-11] MEDS: Potassium Chloride 20 MEQ TAB PO SCH (09:53)
[2018-09-11] MEDS: Aspirin 81 mg Enteric Coated Tablet PO SCH (09:54)
[2018-09-11] MEDS: Isosorbide Dinitrate 20 MG TAB PO SCH ×2 (09:54→14:31)
[2018-09-11 12:39] VITALS: TEMP 98.1
[2018-09-11 14:31] VITALS: BP 156/66
--- NOTE | 2018-09-11 15:44 | PQF ---
SOLOMON HILLIARD RYAN ANDREW MD [id number] [facility]-296 [id number] CLINICAL DOCUMENTATION IMPROVEMENT CLARIFICATION FORM: ICD-10 Updated PLEASE DO AN ADDENDUM TO THE PROGRESS NOTE WITH ANY DOCUMENTATION UPDATES OR ADDITIONS AND CARRY THROUGH TO DC SUMMARY. THANK YOU. DATE: 09-11-18 ATTN: DR. TOLEDO Please exercise your independent, professional judgment in responding to the clarification form. 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 All Rights Reserved Sneha Devlin RN, [email or web address]
--- NOTE | 2018-09-12 03:58 | DIS ---
DATE OF ADMISSION: 09/08/2018 DATE OF DISCHARGE: 09/11/2018 PRIMARY CARE PHYSICIAN: Christian Purdy DO REASON FOR ADMISSION: Exacerbation of congestive heart failure. DIAGNOSES ON DISCHARGE: 1. [id number] combined systolic and diastolic congestive heart failure. 2. Hypertension. 3. Chronic kidney disease stage 3. 4. Diabetes mellitus type 2. 5. Dyslipidemia. PROCEDURES: None. CONSULTATIONS: Cardiology, Dr. Zepeda. SUMMARY OF HOSPITAL COURSE: This is an 83-year-old male with a history of congestive heart failure, who presented with progressive shortness of breath, orthopnea, and paroxysmal nocturnal dyspnea. He was diagnosed with exacerbation of his CHF. Cardiology was consulted. The patient was diuresed with IV Lasix with improvement in symptoms. He has chronic kidney disease and his creatinine was monitored closely; however, it did not get worse. The patient's medications were adjusted by Cardiology, and he was doing well on the day of discharge and is being discharged home. DISCHARGE MANAGEMENT: Discharged home. FOLLOWUP: Follow up with Dr. Livingston next month and with Dr. Purdy next month as well. ACTIVITY: As tolerated. DIET: Diabetic, low-sodium diet. MEDICATIONS: 1. Hydralazine 50 mg 3 times a day, 90 tablets dispensed. 2. Isosorbide dinitrate 20 mg 3 times a day, 90 tablets dispensed and resume other home medications. 3. Aspirin 81 mg daily. 4. Atorvastatin 20 mg at night. 5. Carvedilol 25 mg twice a day. 6. Furosemide 40 mg daily. 7. Potassium chloride 10 mEq p.o. daily. Job ID: [id number]
== END 2018-09-11 15:25 | disposition home or self-care (01) | DRG 291 ==
LOC: ERS 02:46 → ERHOLD 05:45 → OBSVTOIN 07:42 → 2NO 16:32
PROVIDERS: ADMIT Internal Medicine; ATTEND Internal Medicine
DX: I13.0 Hypertensive heart and chronic kidney disease with heart failure and stage 1 through stage 4 chronic kidney disease, or unspecified chronic kidney disease (principal); I50.43 Acute on chronic combined systolic (congestive) and diastolic (congestive) heart failure; C91.10 Chronic lymphocytic leukemia of B-cell type not having achieved remission; E11.22 Type 2 diabetes mellitus with diabetic chronic kidney disease; N18.3 Chronic kidney disease, stage 3 (moderate); Z88.5 Allergy status to narcotic agent; Z87.01 Personal history of pneumonia (recurrent); I42.9 Cardiomyopathy, unspecified; Z79.899 Other long term (current) drug therapy; Z79.84 Long term (current) use of oral hypoglycemic drugs; Z79.82 Long term (current) use of aspirin; Z87.891 Personal history of nicotine dependence; E78.2 Mixed hyperlipidemia; E66.8 Other obesity; I34.0 Nonrheumatic mitral (valve) insufficiency
CPT/HCPCS: 36415; 36416; 71045; 71046; 80048; 80053; 82550; 82553; 83605; 83690; 83880; 84484; 85025; 87040; 93005; 93798; 94640; 96365; 96375; J1650; J1940; J1956; J7620

== ENCOUNTER 2018-09-28 06:57 | Inpatient (IN) | payer MEDICARE ==
[2018-09-28 07:17] LABS: #Eosinphils 0.2 thou/uL (0.0-0.7); #Lymphocytes 1.9 thou/uL (1.20-3.40); #Monocytes 0.4 thou/uL (0.11-0.59); #Neutrophils 2.7 thou/uL (1.40-6.50); %Lymphocytes 36.4 % (21.0-51.0); %Monocytes 7.7 % (0.0-10.0); Hemoglobin 9.7 g/dL (14.0-18.0); Mean Corpuscular Hemoglobin 28.1 pg (27.0-31.0); Mean Corpuscular Volume 90.7 fL (78.0-98.0); Platelet Count 188 thou/uL (130-400); RBC Distribution Width 14.9 % (11.5-14.5); Red Blood Cell (RBC) Count 3.44 mill/uL (4.70-6.10); White Blood Cell (WBC) Count 5.1 thou/uL (4.8-10.8)
[2018-09-28 07:28] LABS: INR-International Normal Ratio 1.1; Prothrombin Time 14.4 SEC (12.0-14.7)
[2018-09-28 07:32] LABS: ALT (SGPT) Less than 7 U/L (8-55); AST (SGOT) 13 U/L (5-34); Albumin 3.4 g/dL (3.4-4.8); Alkaline Phosphatase 70 U/L (40-150); Anion Gap 13 mmol/L (10-20); BUN (Urea Nitrogen) 30 mg/dL (8.4-25.7); Bilirubin, Total 0.7 mg/dL (0.2-1.2); CK (CPK) 73 U/L (30-200); Calc. Creatinine Clearance 0 mL/min (70-130); Calcium 9.4 mg/dL (7.8-10.44); Carbon Dioxide 24 mmol/L (23-31); Chloride 107 mmol/L (98-107); Estimated GFR-MDRD 49; Globulin 3.4 g/dL (2.4-3.5); Glucose 118 mg/dL (83-110); Potassium 4.9 mmol/L (3.5-5.1); Protein, Total 6.8 g/dL (5.8-8.1); Sodium 139 mmol/L (136-145)
[2018-09-28 07:36] LABS: PTT 35.1 SEC (22.9-36.1)
--- NOTE | 2018-09-28 07:44 | CT ---
CT OF THE BRAIN WITHOUT CONTRAST STROKE ALERT: INDICATION: An 10-year-old male level I stroke alert, last seen normal last night with aphasia. COMPARISON: None. FINDINGS: There is an acute infarct involving the anterior to mid left insular cortex and subinsular cortical w moreno matter tracts. No intracranial hemorrhage is evident. There is mild chronic small-vessel white matter ischemic change. Septum pellucidum and third ventricle are midline. No acute intracranial h emorrhage or hydrocephalus is present. Mastoid air cells and paranasal sinuses are clear. There is mild mucosal thickening involving the maxillary sinuses. The skull is intact. IMPRESSION: 1. Findings of acute infarct involving the left anterior to mid insular cortex and left subinsular c ortical region. No intracranial hemorrhage or midline shift is evident. Findings called to Dr. Rice at 7:17 a.m. 09/28/2018. 2. Mild chronic small-vessel white matter ischemic change. CODE CR POS: [facility]
[2018-09-28] MEDS ORDERED: Iopamidol 370 76% 100 ML VIAL ONE (07:46)
[2018-09-28 07:54] LABS: CKMB 1.4 ng/mL (0-6.6)
[2018-09-28] MEDS ORDERED: Furosemide 40 MG/4 ML VIAL ONE (08:11)
--- NOTE | 2018-09-28 08:11 | CT ---
CTA OF THE HEAD WITH IV CONTRAST AND 3D REFORMATTED IMAGING CTA OF THE NECK UTILIZING IV CONTRAST AND 3D REFORMATTED IMAGING: INDICATION: Aphasia; stroke alert examination. COMPARISON: CT of the chest, abdomen, and pelvis dated 08/24/[address] of the soft tissues of the neck dated 08/17/2013. FINDINGS: CTA OF THE NECK: There is a diminutive appearance to the right vertebral artery throughout its entire course with poor opacification of the distal right cervical vertebral artery. There is limited opacification of the right vertebral artery as it traverses the posterior aspect of the right C1 level. There is some rec onstitution of flow within the distal right intracranial vertebral artery prior to the basilar conflu ence. The left vertebral artery appears patent throughout its entire course and appears to be the dominant vertebral artery. The distal to mid basilar artery appears patent. There is suspected high-grade st enosis involving the more proximal basilar artery near the basilar terminus. The left common carotid artery appears widely patent. The bifurcation demonstrates some mild vascula r calcification but is widely patent. The cervical left ICA, petrous segment, left precavernous segm ent appears patent. The right CCA appears patent from its origin. There are mild vascular calcifications involving right carotid bulb. The right cervical ICA is widely patent. The right petrous segment appears widely pa tent. There are a few shotty-appearing lymph nodes within the soft tissues of the neck bilaterally. There is slight prominence of the palatine tonsils that is slightly more prominent than on the prior examin ation. There are a few shotty-appearing lymph nodes seen within the upper mediastinum that appear si milar to a recent CT of the chest, abdomen, and pelvis. No definite acute osseous abnormality is kristi dent. CTA OF THE HEAD: There is suspected origin of the right [employer]UC[employer]. The left [employer] appears patent. The MCAs appear salgado nt. No large vessel occlusion is evident. The areas suspected infarct involving the left anterior t o mid insular region is again. There are diminished MCA branches noted within this region. The ACAs appear patent bilaterally. There is suspected high-grade stenosis involving the more proximal aspec t of the basilar artery. There is a moderate region of narrowing involving the distal left cavernous and left supraclinoid ICA. The right ICA along its petrous, precavernous, cavernous, and supracaver nous segments appear widely patent. IMPRESSION: 1. Findings suspicious for a left anterior to mid insular cortical infarct with diminished MCA branc h opacification seen near this region. 2. 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 3. Dominance of the left vertebral artery. 4. 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 MR A of the head is recommended for additional characterization. 5. Moderate degree of stenosis involving the distal cavernous and left supraclinoid internal carotid artery due to atherosclerotic calcification. POS: [facility]
[2018-09-28] MEDS ORDERED: Aspirin Chewable 81 MG TAB ONE ×2 (08:13→09:00)
[2018-09-28] MEDS ORDERED: hydrALAZINE 20 MG/ML VIAL ONE (08:13)
[2018-09-28] MEDS ORDERED: Carvedilol 25 MG TAB PO SCH (08:30)
[2018-09-28] MEDS ORDERED: Isosorbide Dinitrate 20 MG TAB PO SCH (08:30)
--- NOTE | 2018-09-28 08:36 | RAD ---
FRONTAL VIEW CHEST: CLINICAL HISTORY: Stroke. FINDINGS: There is no consolidation, effusion, or pneumothorax. Cardiac silhouette is prominent. There is int erstitial prominence of each lung. Scattered osseous degenerative change is present. IMPRESSION: Enlarged cardiac silhouette with prominent interstitium which may relate to edema from congestive hea rt failure. Correlate clinically. POS: [facility]
--- NOTE | 2018-09-28 11:35 | HP ---
CHIEF COMPLAINT: Difficulty speaking and confusion. HISTORY OF PRESENT ILLNESS: The following history was obtained by review of medical record as well as from the patient's spouse as the patient could not provide any history. An 83-year-old male with past medical history significant for congestive heart failure, diabetes, chronic kidney disease stage 2/3, hypertension, and relapsed lymphoma, who was brought into the hospital due to acute onset of difficulty speaking and some confusion. reported that the patient woke up around 2 or 3 a.m. in the morning to go to the bathroom and he was not talking well as usual, though she thought he was ignoring her. Early this morning around 6 a.m., the patient was still had difficulty talking and his was concerned and she gave him something to read, but he could not, which is new for him, and she brought him to the emergency room. The patient was not able to say anything . Blood pressure on presentation was elevated above 220/110, hence the patient received hydralazine and his usual home medications with improvement in blood pressure. Impression of stroke was made and the patient subsequently had CT of the head, which was suggestive of left-sided stroke. Given unclear onset of neurological deficit, Neurology consult was requested and no tPA was recommended. The patient remains stable and he was admitted for further evaluation and treatment. Job ID: [id number]
[2018-09-28] MEDS ORDERED: Acetaminophen 325 MG TAB PO PRN (11:39)
[2018-09-28] MEDS ORDERED: Ondansetron ODT 4 MG TAB PO PRN (11:39)
[2018-09-28] MEDS ORDERED: hydrALAZINE 20 MG/ML VIAL SLOW IVP PRN (11:39)
[2018-09-28] MEDS ORDERED: Ondansetron PF 4 MG/2 ML Vial IVP PRN (11:39)
[2018-09-28] MEDS ORDERED: Bisacodyl 10 MG SUPP PR PRN (11:39)
[2018-09-28] MEDS ORDERED: Bisacodyl 5 MG TAB PO PRN (11:39)
[2018-09-28] MEDS ORDERED: Albumin 25% 25 GM/100 ML BOT IVPB STA (11:40)
[2018-09-28 12:04] LABS: Troponin I 0.064 ng/mL (< 0.028)
--- NOTE | 2018-09-28 14:32 | MRI ---
MRI BRAIN WITHOUT CONTRAST: Date: 09/28/18 HISTORY: Acute stroke. COMPARISON: None. FINDINGS: Corresponding to the recent CT examination, diffusion restriction of the left anterior insula extendi ng into the williamson radiata and left middle frontal gyrus. On the susceptibility-weighted imaging sequ ence, there are no abnormal areas of hemorrhage. Proximal [place] flow-voids are maintained. No midline shift or mass effect. Moderate mucosal sinus thickening. Cerebellar tonsils terminate at level of foramen magnum. Corpus callosum is mildly thinned, as expect ed for age. Focal areas of susceptibility in the right capo, likely either an old area of hemorrhage or senile ca lcification. Moderate microvascular ischemic changes. IMPRESSION: Confirmation of left insular infarction extending into the williamson radiata and left middle frontal gyr us. POS: [facility]
[2018-09-28 16:12] VITALS: BMI 30.8
[2018-09-28] MEDS ORDERED: Atorvastatin Calcium 40 MG TAB PO SCH (21:00)
[2018-09-28] MEDS: Famotidine 20 MG TAB PO SCH (21:28)
[2018-09-28] MEDS: Famotidine/PF 20 mg/2ml Vial SLOW IVP SCH (21:29)
[2018-09-29] MEDS ORDERED: HumaLOG 300 UNITS/3 ML VIAL SC PRN ×2 (03:36→06:17)
[2018-09-29] MEDS ORDERED: Dextrose 50% Abboject 50 ML SYRINGE IVP PRN (03:36)
[2018-09-29] MEDS ORDERED: Dextrose 5% in Water 1,000 ML IV PRN (03:36)
[2018-09-29 05:44] LABS: #Eosinphils 0.1 thou/uL (0.0-0.7); #Lymphocytes 1.6 thou/uL (1.20-3.40); #Monocytes 0.4 thou/uL (0.11-0.59); #Neutrophils 2.8 thou/uL (1.40-6.50); %Basophils 0.5 % (0.0-1.0); %Eosinophils 2.4 % (0.0-10.0); %Lymphocytes 32.4 % (21.0-51.0); %Monocytes 8.1 % (0.0-10.0); %Neutrophils 56.6 % (42.0-75.0); Hemoglobin 9.1 g/dL (14.0-18.0); Mean Corpuscular HGB CONC 31.5 g/dL (32.0-36.0); Mean Corpuscular Hemoglobin 28.6 pg (27.0-31.0); Mean Corpuscular Volume 90.6 fL (78.0-98.0); Platelet Count 161 thou/uL (130-400); RBC Distribution Width 14.9 % (11.5-14.5); Red Blood Cell (RBC) Count 3.18 mill/uL (4.70-6.10)
[2018-09-29 05:59] LABS: Anion Gap 13 mmol/L (10-20); BUN (Urea Nitrogen) 27 mg/dL (8.4-25.7); Calc. Creatinine Clearance 66 mL/min (70-130); Calcium 9.7 mg/dL (7.8-10.44); Carbon Dioxide 26 mmol/L (23-31); Cardiac Risk 5.8 (Less than 4.5); Chloride 106 mmol/L (98-107); Cholesterol 152 mg/dl (< 200 Desired); Estimated GFR-MDRD 56; Glucose 103 mg/dL (83-110); HDL Cholesterol 26 mg/dL (>60 Neg Risk); LDL Cholesterol, Calculated 96 mg/dL; Sodium 141 mmol/L (136-145); Triglycerides 150 mg/dL (Less than 150)
[2018-09-29] MEDS ORDERED: Insulin Regular 300 UNITS/3 ML VIAL SC SCH (07:30)
[2018-09-29] MEDS: Famotidine 20 MG TAB PO SCH ×2 (09:28→20:54)
[2018-09-29] MEDS: Aspirin 325 mg Enteric Coated Tablet PO SCH (09:29)
[2018-09-29] MEDS: Carvedilol 25 MG TAB PO SCH ×2 (09:29→20:53)
[2018-09-29] MEDS: Enoxaparin Sodium 40 MG/0.4 ML SYRINGE SC SCH (09:29)
[2018-09-29] MEDS: Famotidine/PF 20 mg/2ml Vial SLOW IVP SCH ×2 (09:30→20:54)
--- NOTE | 2018-09-29 09:54 | HP ---
CHIEF COMPLAINT: Acute onset of difficult speaking and confusion. HISTORY OF PRESENT ILLNESS: Following history was obtained from the patient's spouse as well as from review of medical records. The patient was unable to provide any history due to medical problem. An 83-year-old male with past medical history significant for congestive heart failure, diabetes, hypertension, as well as relapsed lymphoma, yet to start on treatment, who presented with acute onset of difficulty speaking and some confusion. reported that the patient woke up around 2 or 3 a.m. to use the restroom and was unable to talk, which she thought that he was not him. Also at 6 a.m., she noticed the same inability to talk, mumbling on words, hence she was alarmed. She gave him something to read, but he was unable to read it, which is new for him, hence she called EMS and the patient was brought to the emergency room. The patient was unable to speak, he mumbles on speech, but otherwise obeying and moving all limbs. Further evaluation with CT scan showed features of left-sided stroke. Due to unclear onset of neurological deficit, Neurology consult was obtained and he recommended that tPA should not be given. On presentation, the patient had elevated BP with systolic blood pressure above 220 range. He was given hydralazine in the emergency room as well as his regular antihypertensive with improvement in blood pressure. He is therefore admitted for further evaluation. During my evaluation, the patient managed to say okay, but otherwise mumbled of the speech. PAST MEDICAL HISTORY: 1. CHF. 2. Cardiomyopathy with ejection fraction of 45%. 3. Hypertension. 4. Diabetes mellitus, type 2. 5. Chronic kidney disease. 6. Dyslipidemia. 7. Chronic lymphocytic leukemia with relapse. PAST SURGICAL HISTORY: 1. Hernia repair. 2. Cataract surgery. 3. Excisional biopsy of lymphoma. 4. Colonoscopy. FAMILY HISTORY: Positive for hypertension, diabetes type 2, glaucoma, prostate cancer, as well as clotting disorder. Mother has history of stroke. SOCIAL HISTORY: The patient lives at home with spouse. He is a former smoker, but denied current alcohol or drug use. ALLERGIES: NO KNOWN DRUG ALLERGIES. THE PATIENT, HOWEVER, REPORTED THAT HE GETS SEVERE CONSTIPATION THROUGH CODEINE. CURRENT HOME MEDICATIONS: 1. Aspirin 81 mg daily. 2. Lasix 40 mg daily p.r.n. 3. Carvedilol 25 mg b.i.d. 4. Note that the patient does not take metformin anymore. 5. Isordil. REVIEW OF SYSTEMS: This could not be done due to the patient's condition. He, however, denied chest pain or change in bowel habits. PHYSICAL EXAMINATION: VITAL SIGNS: Current vitals show BP 160/84, pulse 56, respiratory rate 12, SpO2 of 98 on room air. On presentation; however, vitals were 206/85, pulse of 85, respiratory rate of 14, SpO2 of 100% on room air. GENERAL: Conscious and alert. No obvious distress. HEENT: Normocephalic and atraumatic. Pupils are equal and reacting to light. Sclerae anicteric. Oral mucosa is moist. NECK: Supple, nontender with good range of motion. No JVD or carotic bruits appreciated. LUNGS: Good air entry bilateral with no obvious crackle or rhonchi. There is no use of accessory muscles. CARDIOVASCULAR/HEART: Regular rhythm and rate with occasional ectopics. Normal heart sounds 1 and 2. Soft systolic murmur noted at mitral area. ABDOMEN: Full, soft, nontender, nondistended with normal bowel sounds. Ventral hernia noted. EXTREMITIES: Grossly normal looking and atraumatic. Moderate bilateral leg edema noted with no erythema or cyanosis. SKIN: Warm and dry. No obvious rash noted. PERIPHERAL VASCULAR: Distal pulses are palpable. NEUROLOGIC: Awake and cooperative. The patient obeys simple command. Moves all extremities. He, however, mumbles on speech during my evaluation. The only words he was able to utter was okay at the end of my evaluation. Mild right-sided lower facial droop noted. Otherwise cranial nerves 2 through 12 are grossly intact. Power is 5/5 in all limbs. Sensation equally and greatly normal. Coordination is equally normal. There is no involuntary movement or tremors. PSYCHIATRIC: The patient seems appropriate. No agitation or restlessness. DIAGNOSTIC DATA: CBC showed WBC count of 5.1, hemoglobin of 9.7, and platelet of 188. CMP showed sodium 139, potassium 4.9, chloride 107, CO2 of 24, BUN 30, creatinine 1.63, glucose 118, and calcium 9.4. Total bilirubin 0.7, AST 13, ALT less than 7, alkaline phosphatase 70. Initial troponin was 0.076, which is mildly elevated. Chest x-ray showed enlarged cardiac silhouette with prominent interstitial, which may relate to edema from congestive heart failure. CT brain showed an acute infarct involving the left anterior to mid insula cortex as well as left subinsular cortical region. No intracranial hemorrhage or midline shift was noted. CT angio of head and neck showed findings suspicious for left anterior to mid insula cortical infarct with diminished MCA branch opacifications near this region. 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 Dominance of the left vertebral artery. High-grade stenosis involving the more proximal basilar artery prior to basilar terminus. MRA of the head is recommended for additional characterization. Moderate degree of stenosis involving the distal cavernosa and left supraclinoid internal carotid artery due to atherosclerosis/calcification. EKG showed sinus bradycardia with rate of 48. Complete right bundle-branch block as well as first-degree AV block were noted. There was no obvious ST segment or T-wave abnormalities. ASSESSMENT: 1. Acute infarction involving the left anterior to mid insular cortex as well as left subinsular cortical region. 2. Acute dysphasia. 3. Carotid and vertebra atherosclerosis. 4. Chronic lymphocytic leukemia with relapse. The patient's spouse reported that he is following up with the oncologist and they are planning to start the patient on ibrutinib. No acute issue. 5. Anemia: Chronic and stable. Most likely due to chronic lymphocytic leukemia. 6. 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 No acute issues. 7. Elevated troponin: Most likely related to acute stroke. Acute myocardial infarction is a concern. The patient denied chest pain, though this is unreliable as he is aphasic. EKG is unremarkable. We will monitor closely. 8. Hypertension: Accelerated hypertension most likely is due to acute cerebrovascular accident. We will monitor closely and allow permissive hypertension. 9. Type 2 diabetes mellitus: The patient currently is off medication. PLAN: We will admit the patient to the stroke floor. We will start neuro checks. PT, OT, and Speech Therapy have been consulted to evaluate the patient. Neurology consult has been requested. We will also follow up with MRI of the brain. We will also get repeat echocardiogram. We will start the patient on Lipitor. We will also start the patient on sliding scale insulin. We will also start the patient on his usual antihypertensives while allowing permissive hypertension. DVT prophylaxis with Lovenox has been addressed. Ethics: The patient is full code following discussion with spouse. Job ID: [id number]
--- NOTE | 2018-09-29 10:21 | CON ---
DATE OF CONSULTATION: 09/29/2018 CONSULTING PHYSICIAN: Hospitalist Service. IMPRESSION: 1. 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 2. Aspirin failure. 3. Diabetes. 4. Hyperlipidemia. PLAN: 1. Add Plavix 75 mg per day. 2. Outpatient speech therapy. HISTORY OF PRESENT ILLNESS: Mr. Rios is an 83-year-old gentleman, who developed acute onset of speech difficulties and some mild right-sided weakness. He came into the emergency room last night. Initial CT angiogram showed evidence of vascular disease including a suspicious narrowing of left anterior to mid insular cortical area of infarct, high-grade stenosis of the distal cervical right vertebral artery, and intracranial right vertebral artery with a complete occlusion, high-grade stenosis of the proximal basilar artery prior to the basilar terminus, and moderate degree stenosis of the distal cavernous left supraclinoid internal carotid artery. MRI of the brain revealed an acute area of infarction involving the anterior portion of the middle cerebral artery. Laboratory studies showed unremarkable chemistries other than a mildly elevated blood glucose and a cardiac risk ratio of 5.8. Hemoglobin was 9.7 and hematocrit was 31. The patient has not shown any significant improvement in his expressive language difficulty since admission. He has otherwise been stable. He has been a bit hypertensive since admission too with a blood pressure of 214/91 this morning. PAST MEDICAL HISTORY: As listed above. ALLERGIES: CODEINE. SOCIAL HISTORY: No tobacco or alcohol use. FAMILY HISTORY: Noncontributory. MEDICATIONS: Medication list was reviewed. REVIEW OF SYSTEMS: Ten-system review of systems was otherwise negative. PHYSICAL EXAMINATION: GENERAL: He is a healthy-appearing man, who appears younger than his age. VITAL SIGNS: Blood pressure 214/91, pulse 60, respirations 17, and temperature 97.9. HEENT: Pupils are equal and reactive. Conjunctivae clear. Oropharynx clear. Cranium, normocephalic and atraumatic. NECK: Supple. No lymphadenopathy. EXTREMITIES: No cyanosis, clubbing, or edema. NEUROLOGIC: He was alert and cooperative. He followed commands appropriately. He had significant expressive language difficulties. Cranial nerve exam showed a subtle right nasolabial fold flattening, but otherwise was intact. Motor exam showed good strength bilaterally with only very mild weakness on the right with a fix on arm roll testing. Sensation was intact to touch. Reflex was symmetric. He could walk independently. DIAGNOSTIC STUDIES: EKG shows a sinus rhythm. Echocardiogram is pending. SUMMARY: This is an 83-year-old gentleman, who had probable thrombosis or thromboembolic event involving the left middle cerebral artery territory despite aspirin and a statin. I go ahead and add Plavix. His echocardiogram is pending, and if the EF is less than 35%, I would consider anticoagulation. He otherwise appears neurologically intact and could be discharged home this afternoon. Job ID: [id number]
--- NOTE | 2018-09-29 11:34 | PDOC.PN ---
- Subjective Encounter Start Date: 09/29/18 Encounter Start Time: 11:32 Subjective: 83 y/o right handed male admitted with acute onset of expressive aphasia. -: Fpound to have acute CVA. Able to say some words but cannot speech -: in sentences. Also noted to have right hand dyspraxia. denied headache. - Objective Resuscitation Status - Order Detail: 09/28/18 09:31 Resuscitation Status Routine Resuscitation Status: FULL: Full Resuscitation Discussed with: Spouse Vital Signs & Weight: Vital Signs (12 hours) Temp Pulse Resp BP Pulse Ox 09/29/18 08:51 184/86 H 09/29/18 08:42 94 L 09/29/18 07:48 97.9 F 60 17 214/91 H 94 L 09/29/18 04:00 98.5 F 61 16 196/87 H 96 Weight Weight 259 lb 3.2 oz I&O: 09/28/18 09/29/18 09/30/18 06:59 06:59 06:59 Intake Total 100 Output Total 275 Balance -175 Result Diagrams: 09/29/18 05:31 09/29/18 05:31 Additional Labs: Accuchecks 09/29/18 09/29/18 09/28/18 10:56 05:28 22:39 POC Glucose 160 H 106 115 H 09/28/18 17:27 POC Glucose 133 H Phys Exam - Physical Examination Constitutional: NAD HEENT: PERRLA, moist MMs, sclera anicteric Neck: no JVD, supple, full ROM Respiratory: no wheezing, no rhonchi, clear to auscultation bilateral Cardiovascular: RRR, no significant murmur Gastrointestinal: soft, non-tender, no distention, positive bowel sounds Musculoskeletal: no edema Conscious and alert, cranial nerves 2-12 are grossly intact. Able to say some words. power grossly 5/5 all limbs. Psychiatric: normal affect Dx/Plan (1) Acute cerebrovascular accident (CVA) Code(s): I63.9 - CEREBRAL INFARCTION, UNSPECIFIED Status: Acute (2) CLL (chronic lymphoid leukemia) with failed remission Code(s): C91.10 - CHRONIC LYMPHOCYTIC LEUK OF B-CELL TYPE NOT ACHIEVE REMIS Status: Acute (3) Dyslipidemia Code(s): E78.5 - HYPERLIPIDEMIA, UNSPECIFIED Status: Chronic (4) Hypertension Code(s): I10 - ESSENTIAL (PRIMARY) HYPERTENSION Status: Chronic Qualifiers: Hypertension type: essential hypertension Qualified Code(s): I10 - Essential (primary) hypertension (5) Expressive aphasia Code(s): R47.01 - APHASIA Status: Acute (6) Dyspraxia of upper extremity Code(s): R27.8 - OTHER LACK OF COORDINATION Status: Acute (7) Cerebral arteriosclerosis Code(s): I67.2 - CEREBRAL ATHEROSCLEROSIS Status: Acute - Plan Increase lipitor to 80 mg Hs -: Start plavix as recommended by neurology -: Continue PT/OT/HEEL SPRAYER FIRST -: Continue permissive HTN. Restarted coreg to avoid rebound tachycardia. * .
[2018-09-29] MEDS ORDERED: Clopidogrel Bisulfate 75 MG TAB PO SCH (19:45)
[2018-09-29] MEDS ORDERED: Atorvastatin Calcium 40 MG TAB PO SCH (21:00)
[2018-09-30 03:39] LABS: Bilirubin Negative (Negative); Blood, Urine Negative (Negative); Clarity CLEAR (Clear); Glucose, Urine (Dipstick) Negative (Negative); Leukocyte Negative (Negative); Nitrite Negative (Negative); Protein, Urine (Dipstick) 100 mg/dL (Neg-Trace); Specific Gravity, Urine 1.021 (1.002-1.036); Urobilinogen 0.2 mg/dL (0.2-1.0)
[2018-09-30 03:41] LABS: Bacteria/HPF None Seen HPF (None Seen); Hyaline Casts/LPF 0-3 HYALINE CAST LPF (0-3 Hyaline); Pathc Cast-AUWi Flag 0.14 (0-2.49); Squamous Epithelial 0-3 HPF (0-3); WBC/HPF 0-3 HPF (0-3)
[2018-09-30 03:52] LABS: Urine Culture Reflex No No
[2018-09-30] MEDS ORDERED: Clopidogrel Bisulfate 75 MG TAB PO SCH (09:00)
[2018-09-30] MEDS: Enoxaparin Sodium 40 MG/0.4 ML SYRINGE SC SCH (09:11)
[2018-09-30] MEDS: Carvedilol 25 MG TAB PO SCH (09:12)
[2018-09-30] MEDS: Famotidine 20 MG TAB PO SCH (09:12)
[2018-09-30] MEDS: Famotidine/PF 20 mg/2ml Vial SLOW IVP SCH (09:16)
[2018-09-30] MEDS: Aspirin 325 mg Enteric Coated Tablet PO SCH (09:53)
[2018-09-30] MEDS ORDERED: hydrALAZINE 25 MG TAB PO SCH ×3 (09:55→21:00)
[2018-09-30] MEDS ORDERED: Furosemide 40 MG TAB PO PRN (10:57)
--- NOTE | 2018-09-30 11:17 | DIS ---
DATE OF ADMISSION: 09/28/2018 DATE OF DISCHARGE: 09/30/2018 DISCHARGE DIAGNOSES: 1. Acute infarct involving the left anterior to mid insular cortex as well as subinsular cortical region. 2. Acute aphasia. 3. Carotid and vertebral artery atherosclerosis. 4. Acute dyspraxia involving the right upper limb. 5. Chronic lymphocytic leukemia with relapse. 6. Elevated troponin. 7. Accelerated hypertension. 8. Mdybxvyo-ac-fxmthw mitral regurgitation. 9. Chronic congestive heart failure (diastolic). CONSULTS: Neurology. HOSPITAL COURSE: An 83-year-old male with past medical history significant for congestive heart failure with EF of 45, hypertension, CKD, amongst others, who was admitted due to acute onset of difficulty speaking with some confusion. Further evaluation with CT scan showed left-sided stroke, which was further confirmed with MRI. TPA was not given since onset of event could not be particularly pinned down to a particular point. The patient was treated with PT, OT, and Speech with improvement. He however continued to have significant speech deficit and aphasia and was discharged to outpatient speech therapy as well as outpatient occupational therapy for dyspraxia of right upper extremity. Neurology consult was obtained and Plavix was added to aspirin. Echocardiogram, however, showed oeoazvql-di-wwngqf mitral regurgitation. PHYSICAL EXAMINATION: VITAL SIGNS: Blood pressure 197/75, pulse 56, respiratory rate 18, SpO2 of 95 on room air, temperature 98.6. GENERAL: Healthy-looking elderly male, in no obvious distress. Afebrile. Anicteric, acyanotic. HEENT: Normocephalic, atraumatic. Pupils are equal and reacting to light. Oral mucosa is moist. RESPIRATORY: Good air entry bilaterally with no crackles or rhonchi or use of accessory muscles. CARDIOVASCULAR: Regular rhythm and rate with normal heart sounds 1 and 2. Systolic murmur was appreciated. GI: Abdomen is full, soft, nontender, nondistended with normal bowel sounds. EXTREMITIES: Grossly normal looking and atraumatic with no edema or erythema. Mild bilateral leg edema noted. NEUROLOGY: Conscious and alert, oriented x3 with appropriate mental status. The patient moves all extremities with symmetric normal power. The patient is able to say a few words, but had significant aphasia. Cranial nerves 2 through 12 are grossly intact. The patient is ambulant. CONDITION ON DISCHARGE: Stable. FOLLOWUP: The patient is to follow up with the neurologist in 2 to 3 weeks. He is to follow up with PCP in 1 week. He is also to follow up with the communication signals intelligence in 2 to 3 weeks. TIME SPENT: This discharge took more than 35 minutes. Job ID: [id number]
[2018-09-30] MEDS ORDERED: Isosorbide Dinitrate 20 MG TAB PO SCH (15:00)
[2018-09-30 16:05] VITALS: BP 151/78; TEMP 99.1
== END 2018-09-30 17:41 | disposition home or self-care (01) | DRG 65 ==
LOC: ERS 06:57 → ERHOLD 09:12 → 2SE 13:50
PROVIDERS: ADMIT Family Medicine; ATTEND Family Medicine
DX: I63.512 Cerebral infarction due to unspecified occlusion or stenosis of left middle cerebral artery (principal); C91.10 Chronic lymphocytic leukemia of B-cell type not having achieved remission; I13.0 Hypertensive heart and chronic kidney disease with heart failure and stage 1 through stage 4 chronic kidney disease, or unspecified chronic kidney disease; I50.32 Chronic diastolic (congestive) heart failure; I42.9 Cardiomyopathy, unspecified; R47.01 Aphasia; E11.22 Type 2 diabetes mellitus with diabetic chronic kidney disease; E78.5 Hyperlipidemia, unspecified; R27.8 Other lack of coordination; I34.0 Nonrheumatic mitral (valve) insufficiency; N18.3 Chronic kidney disease, stage 3 (moderate)
CPT/HCPCS: 36415; 36416; 70450; 70496; 70498; 70551; 71045; 80048; 80053; 80061; 81001; 82550; 82553; 83735; 84484; 85025; 85610; 85730; 86850; 86900; 86901; 93005; 93306; 96374; 96375; J0360; J1650; J1940; P9047; Q9967

== ENCOUNTER 2018-10-14 11:19 | Observation (INO) | payer MEDICARE ==
[2018-10-14 12:20] LABS: #Eosinphils 0.1 thou/uL (0.0-0.7); #Lymphocytes 1.9 thou/uL (1.20-3.40); #Monocytes 0.3 thou/uL (0.11-0.59); #Neutrophils 3.4 thou/uL (1.40-6.50); %Basophils 0.1 % (0.0-1.0); %Eosinophils 1.9 % (0.0-10.0); %Lymphocytes 33.5 % (21.0-51.0); %Monocytes 4.9 % (0.0-10.0); %Neutrophils 59.6 % (42.0-75.0); Mean Corpuscular HGB CONC 31.8 g/dL (32.0-36.0); Mean Corpuscular Hemoglobin 29.2 pg (27.0-31.0); Mean Corpuscular Volume 91.8 fL (78.0-98.0); Mean Platelet Volume 8.4 fL (7.4-10.4); Platelet Count 131 thou/uL (130-400); RBC Distribution Width 14.9 % (11.5-14.5); Red Blood Cell (RBC) Count 3.43 mill/uL (4.70-6.10); White Blood Cell (WBC) Count 5.8 thou/uL (4.8-10.8)
[2018-10-14 12:25] LABS: ALT (SGPT) Less than 7 U/L (8-55); AST (SGOT) 11 U/L (5-34); Albumin 3.7 g/dL (3.4-4.8); Alkaline Phosphatase 64 U/L (40-150); Anion Gap 12 mmol/L (10-20); BUN (Urea Nitrogen) 42 mg/dL (8.4-25.7); Bilirubin, Total 0.8 mg/dL (0.2-1.2); Calc. Creatinine Clearance 0 mL/min (70-130); Calcium 9.8 mg/dL (7.8-10.44); Carbon Dioxide 27 mmol/L (23-31); Chloride 105 mmol/L (98-107); Estimated GFR-MDRD 40; Globulin 2.5 g/dL (2.4-3.5); Glucose 170 mg/dL (83-110); Potassium 4.2 mmol/L (3.5-5.1); Protein, Total 6.2 g/dL (5.8-8.1); Sodium 140 mmol/L (136-145)
--- NOTE | 2018-10-14 17:24 | HP ---
CHIEF COMPLAINT/HISTORY OF PRESENT ILLNESS: The patient this morning, after he was given blood pressure medications, he became hypotensive, systolic was in the 80s. The EMS was called and the patient was brought to the emergency room for further evaluation. He was in this hospital just recently and was released on diuretics and blood pressure medications and most likely this is related to the use of 1 of those medications. He does not have much complaints to offer. He denies any chest pain. He denies any headache. His orthostatic changes were positive. He was 129/76 and pulse 48 while lying flat, then 106/63 and pulse of 57 while sitting up and 91/54 and pulse of 60 while standing up. PAST MEDICAL HISTORY: His past medical history is positive for; 1. Diabetes mellitus. 2. Hypertension. 3. Non-Hodgkin lymphoma. 4. History of CVA just recently. 5. CHF. 6. Carotid and vertebral artery atherosclerosis. 7. Gyktnicm-zy-iqryyz mitral regurgitation. PAST SURGICAL HISTORY: Hernia repair. SOCIAL HISTORY: He denies any alcohol intake, cigarette smoking, or use any illicit drugs. ALLERGIES: NONE. PLEASE REMOVE CODEINE FROM HIS PROFILE MEDICATIONS ALLERGY, CODEINE COST ONLY CONSTIPATION. MEDICATIONS: 1. Aspirin 81 mg once a day. 2. Lipitor 80 mg once a day. 3. Carvedilol 25 mg twice a day. 4. Plavix 75 mg once a day. 5. Lasix 40 mg once a day. 6. Hydralazine 50 mg three times a day. 7. Isosorbide dinitrate 20 mg 3 times a day. 8. MiraLAX 17 g daily. 9. He is supposed to be started on Imbruvica 420 mg once a day for his non-Hodgkin lymphoma, but he did not start this medications yet. FAMILY HISTORY: His father in his 90s and mother of heart problem, she was in her 70s. REVIEW OF SYSTEMS: CONSTITUTIONAL: Positive for weight loss recently in the last month. Negative for fever and chills. EYES: Negative for eye pain and eye discharge. ENT: Negative for epistaxis and nasal congestion. CARDIOVASCULAR: Negative for chest pain and palpitations. RESPIRATORY: Negative for shortness of breath and cough. GI: Negative for nausea and vomiting. Positive for some constipation. NEURO: Negative for headaches. Negative for dizziness. HEMOLYMPHATIC: Negative for easy bruising and clotting abnormalities. PSYCHIATRIC: Negative for suicidal or homicidal ideations. MUSCULOSKELETAL: Negative for joint pains and joint swelling. PHYSICAL EXAMINATION: VITAL SIGNS: Blood pressure is 144/78, pulse is 52, pulse oximetry is 100%, and respiratory rate is 11. HEENT: His head is atraumatic and normocephalic. Eyes are PERRLA. Sclerae are nonicteric. There is a small facial droop on the right side. Pupils are responding to light properly. Sclerae are nonicteric. Oral mucosa is moist. NECK: Supple. LUNGS: Clear. HEART: S1 and S2 normal. No S3. No S4. ABDOMEN: Soft, nontender, and nondistended. Bowel sounds are present. No organomegaly. EXTREMITIES: 1+ peripheral edema similar bilaterally below the knees. NEUROLOGIC: He follows my commands. He is slow to response. He is able to speak. He is able to move his all 4 extremities. There is no any motor deficits at this point. LABORATORY DATA: Labs showed white count of 5.8, hemoglobin 10.0, hematocrit 31.5, and platelet count is 131. Sodium is 140, potassium 4.2, chloride 105, CO2 of 27, BUN 42, creatinine 1.97, and glucose 170. Troponin 0.083. IMPRESSION: 1. Orthostatic hypotension. Most likely volume depletion secondary to diuresis. 2. Bradycardia, again secondary to his carvedilol. 3. History of congestive heart failure. 4. This is diastolic dysfunction according to the last echo done last month, his systolic function is within normal limits. 5. Peripheral edema. 6. Diabetes mellitus. 7. History of cerebrovascular accident with right facial droop as a residual. 8. Non-Hodgkin lymphoma. 9. Hypertension. PLAN: Plan is to admit him for observation. Condition is fair. Activity, bedrest and bathroom privileges with assistance. The patient received 250 mL of normal saline in the emergency room. We will keep him on IV fluids normal saline at 75 mL/h because he was still orthostatic after the IV bolus. Also, I am holding his home blood pressure medications and diuretic. We will restart his home medications in part tomorrow if his general condition and blood pressure improves. He should be able to go home in the next 24 to 48 hours. Job ID: [id number]
[2018-10-14] MEDS ORDERED: Sodium Chloride 0.9% 1,000 ML IV SCH (18:40)
[2018-10-14 18:44] VITALS: BMI 28.9
[2018-10-14 18:56] LABS: Hemoglobin 10.6 g/dL (14.0-18.0)
[2018-10-14] MEDS ORDERED: Lisinopril 10 MG TAB PO SCH (22:00)
[2018-10-15 05:45] LABS: #Eosinphils 0.1 thou/uL (0.0-0.7); #Lymphocytes 2.1 thou/uL (1.20-3.40); #Monocytes 0.3 thou/uL (0.11-0.59); #Neutrophils 2.8 thou/uL (1.40-6.50); %Basophils 0.2 % (0.0-1.0); %Eosinophils 2.1 % (0.0-10.0); %Lymphocytes 39.6 % (21.0-51.0); %Monocytes 5.6 % (0.0-10.0); %Neutrophils 52.5 % (42.0-75.0); Hemoglobin 10.2 g/dL (14.0-18.0); Mean Corpuscular HGB CONC 31.9 g/dL (32.0-36.0); Mean Corpuscular Hemoglobin 28.8 pg (27.0-31.0); Mean Corpuscular Volume 90.3 fL (78.0-98.0); Mean Platelet Volume 9.2 fL (7.4-10.4); Platelet Count 138 thou/uL (130-400); Red Blood Cell (RBC) Count 3.53 mill/uL (4.70-6.10); White Blood Cell (WBC) Count 5.3 thou/uL (4.8-10.8)
[2018-10-15 06:06] LABS: Anion Gap 14 mmol/L (10-20); BUN (Urea Nitrogen) 39 mg/dL (8.4-25.7); Calc. Creatinine Clearance 45 mL/min (70-130); Calcium 9.8 mg/dL (7.8-10.44); Carbon Dioxide 25 mmol/L (23-31); Chloride 105 mmol/L (98-107); Estimated GFR-MDRD 46; Glucose 92 mg/dL (83-110); Potassium 3.9 mmol/L (3.5-5.1); Sodium 140 mmol/L (136-145)
[2018-10-15] MEDS ORDERED: Prevnar 13-Val Conj/PF 0.5 ML SYRINGE IM ONE (09:00)
[2018-10-15] MEDS ORDERED: Sodium Chloride 0.9% 1,000 ML IV SCH (12:30)
[2018-10-15] MEDS ORDERED: Polyethylene Glycol 3350 17 GM Packet PO PRN (13:15)
[2018-10-15] MEDS ORDERED: Clopidogrel Bisulfate 75 MG TAB PO SCH (14:30)
[2018-10-15] MEDS: Carvedilol 6.25 MG TAB PO SCH (16:32)
--- NOTE | 2018-10-15 18:08 | PDOC.PN ---
- Subjective Encounter Start Date: 10/15/18 Encounter Start Time: 12:00 The patient is an 83 year old AAM, with PMH signficant for recent CVA, HTN, severe MR, and CRI, who presented to the hospital yesterday with complaints of low BP; after he had taken his BP meds yesterday morning, the patient's reports that he appeared sluggish/lethargic. His BP was 77/46 per their home cuff. On arrival to ER, he remained hypotensive, and BP meds have been held. This morning, the patient is noted to have severe orthostatic hypotension, with supine readings 179s-200s, and sitting/standing readings of 120s/110s. He has remained asymptomatic, however. He denies CP, SOB, dizziness, or lightheadedness. - Objective Resuscitation Status - Order Detail: 10/14/18 16:15 Resuscitation Status Routine Resuscitation Status: FULL: Full Resuscitation Vital Signs & Weight: Vital Signs (12 hours) Temp Pulse Resp BP BP BP BP 10/15/18 16:32 219/93 H 219/93 H 167/78 H 136/74 10/15/18 16:00 97.9 F 55 L 16 210/96 H 10/15/18 12:09 97.8 F 50 L 16 176/81 H 10/15/18 07:32 97.9 F 75 18 112/62 128/66 BP Pulse Ox 10/15/18 16:32 10/15/18 16:00 94 L 10/15/18 12:09 93 L 10/15/18 07:32 172/83 H 93 L Weight Weight 213 lb 8 oz I&O: 10/14/18 10/15/18 10/16/18 06:59 06:59 06:59 Intake Total 160 630 Balance 160 630 Result Diagrams: 10/15/18 05:15 10/15/18 05:15 Additional Labs: Accuchecks 10/15/18 10/15/18 10/14/18 16:49 10:46 21:00 POC Glucose 101 198 H 111 H Phys Exam - Physical Examination HEENT: PERRLA, moist MMs Neck: no nodes, no JVD Respiratory: no wheezing, no rales, no rhonchi, clear to auscultation bilateral Cardiovascular: RRR, no significant murmur Gastrointestinal: soft, non-tender, positive bowel sounds Musculoskeletal: no edema, pulses present mild right facial droop noted, known Lymphatic: no nodes Psychiatric: normal affect, A&O x 3 Skin: no rash Dx/Plan (1) Orthostatic hypotension Code(s): I95.1 - ORTHOSTATIC HYPOTENSION Status: Acute Comment: profound, but asymptomatic, no syncope; suspect vasomotor incompetence/ dysautonomia in the setting of recent stroke (2) Old cerebrovascular accident (CVA) without late effect Code(s): Z86.73 - PRSNL HX OF TIA (TIA), AND CEREB INFRC W/O RESID DEFICITS Status: Chronic (3) Chronic diastolic (congestive) heart failure Code(s): I50.32 - CHRONIC DIASTOLIC (CONGESTIVE) HEART FAILURE Status: Chronic (4) Mitral regurgitation Status: Chronic Qualifiers: Cardiac valve disease etiology: nonrheumatic Qualified Code(s): I34.0 - Nonrheumatic mitral (valve) insufficiency (5) CLL (chronic lymphoid leukemia) with failed remission Code(s): C91.10 - CHRONIC LYMPHOCYTIC LEUK OF B-CELL TYPE NOT ACHIEVE REMIS Status: Chronic (6) CKD (chronic kidney disease) Code(s): N18.9 - CHRONIC KIDNEY DISEASE, UNSPECIFIED Status: Chronic Qualifiers: Chronic kidney disease stage: stage 3 (moderate) Qualified Code(s): N18.3 - Chronic kidney disease, stage 3 (moderate) Comment: stable, no CHRISTINA-I/ARB for CHF (7) Dysautonomia orthostatic hypotension syndrome Code(s): G90.3 - MULTI-SYSTEM DEGENERATION OF THE AUTONOMIC NERVOUS SYSTEM Status: Acute - Plan * . The patient had hypotension at presentation, but orthostatics reveal profound orthostatic hypotension, although the patient remains asymptomatic. I suspect dysautonomia/vasomotor incompetence, possibly related to his recent CVA. We have started back some of his BP meds back at lower doses and he will need to continued monitor as we titrate. Midodrine or Florinef could be considered, but given his high BP readings supine, do not want exacerbate these readings. Will recheck orthostatics in the morning. Review of Systems - Review of Systems Eyes: negative: Vision Change Respiratory: negative: Cough, Dry, Shortness of Breath, Wheezing Cardiovascular: negative: chest pain, palpitations, light headedness Gastrointestinal: negative: Nausea, Vomiting, Abdominal Pain Musculoskeletal: negative: Neck Pain, Shoulder Pain Skin: negative: Rash, Lesions - Medications/Allergies Allergies/Adverse Reactions: Allergies Allergy/AdvReac Type Severity Reaction Status Date / Time No Known Allergies Allergy Unverified 10/14/18 19:25 Medications: Current Medications Aspirin (Ecotrin) 81 mg PO DAILY [facility] Carvedilol (Coreg) 12.5 mg PO BID[facility] Last Admin: 10/15/18 16:32 Dose: 12.5 mg Clopidogrel Bisulfate (Plavix) 75 mg PO DAILY [facility] Hydralazine HCl (Apresoline) 25 mg PO TID [facility] Non-Formulary Medication (Atorvastatin Calcium [Lipitor]) 80 mg PO HS [facility] Polyethylene Glycol (Miralax) 17 gm PO DAILYPRN PRN PRN Reason: Constipation
[2018-10-15] MEDS ORDERED: Atorvastatin Calcium 40 MG TAB PO SCH (21:00)
[2018-10-15] MEDS: hydrALAZINE 25 MG TAB PO SCH (21:14)
[2018-10-16 05:45] LABS: #Eosinphils 0.2 thou/uL (0.0-0.7); #Lymphocytes 2.4 thou/uL (1.20-3.40); #Monocytes 0.3 thou/uL (0.11-0.59); #Neutrophils 2.5 thou/uL (1.40-6.50); %Basophils 0.6 % (0.0-1.0); %Eosinophils 2.8 % (0.0-10.0); %Lymphocytes 44.1 % (21.0-51.0); %Monocytes 5.8 % (0.0-10.0); %Neutrophils 46.7 % (42.0-75.0); Hemoglobin 10.1 g/dL (14.0-18.0); Mean Corpuscular Hemoglobin 29.4 pg (27.0-31.0); Mean Platelet Volume 9.3 fL (7.4-10.4); Platelet Count 147 thou/uL (130-400); RBC Distribution Width 14.7 % (11.5-14.5); Red Blood Cell (RBC) Count 3.44 mill/uL (4.70-6.10); White Blood Cell (WBC) Count 5.3 thou/uL (4.8-10.8)
[2018-10-16 06:02] LABS: Anion Gap 14 mmol/L (10-20); BUN (Urea Nitrogen) 31 mg/dL (8.4-25.7); Calc. Creatinine Clearance 50 mL/min (70-130); Calcium 9.8 mg/dL (7.8-10.44); Carbon Dioxide 25 mmol/L (23-31); Chloride 106 mmol/L (98-107); Estimated GFR-MDRD 51; Glucose 85 mg/dL (83-110); Potassium 3.9 mmol/L (3.5-5.1); Sodium 141 mmol/L (136-145)
[2018-10-16] MEDS: hydrALAZINE 25 MG TAB PO SCH ×2 (08:23→15:28)
[2018-10-16] MEDS: Carvedilol 6.25 MG TAB PO SCH ×2 (08:28→10:17)
[2018-10-16] MEDS ORDERED: Furosemide 40 MG TAB PO PRN (08:40)
[2018-10-16] MEDS ORDERED: Polyethylene Glycol 3350 17 GM Packet PO SCH (09:00)
[2018-10-16] MEDS ORDERED: Aspirin 81 mg Enteric Coated Tablet PO SCH (09:00)
[2018-10-16] MEDS ORDERED: Isosorbide Dinitrate 20 MG TAB PO SCH (09:00)
[2018-10-16] MEDS ORDERED: Clopidogrel Bisulfate 75 MG TAB PO SCH ×2 (09:00)
[2018-10-16 15:29] VITALS: BP 184/78
[2018-10-16 16:00] VITALS: TEMP 97.4
--- NOTE | 2018-10-16 17:02 | PDOC.EVN ---
Event Note - Event Note Event Note: discussed with umer Borden
[2018-10-16] MEDS ORDERED: Isosorbide Dinitrate 5 MG TAB PO SCH (21:00)
--- NOTE | 2018-10-21 23:06 | EKG ---
Test Reason : Blood Pressure : / mmHG Vent. Rate : 051 BPM Atrial Rate : 051 BPM P-R Int : 258 ms QRS Dur : 182 ms QT Int : 514 ms P-R-T Axes : -15 257 -41 degrees QTc Int : 473 ms Sinus bradycardia with 1st degree A-V block Right bundle branch block No acute changes from previous EKG Confirmed by THANIA LEBRON ([id number]), story editor CHRISSY FONTAINE ([id number]) on 10/21/2018 11:06:09 PM Referred By: Confirmed By:THANIA LEBRON
== END 2018-10-16 16:18 | disposition home or self-care (01) ==
LOC: ERS 11:19 → 2SW 15:44
PROVIDERS: ADMIT Internal Medicine; ATTEND Internal Medicine
DX: G90.3 Multi-system degeneration of the autonomic nervous system (principal); I34.0 Nonrheumatic mitral (valve) insufficiency; I65.29 Occlusion and stenosis of unspecified carotid artery; I67.2 Cerebral atherosclerosis; C85.90 Non-Hodgkin lymphoma, unspecified, unspecified site; I69.392 Facial weakness following cerebral infarction; I13.0 Hypertensive heart and chronic kidney disease with heart failure and stage 1 through stage 4 chronic kidney disease, or unspecified chronic kidney disease; E11.22 Type 2 diabetes mellitus with diabetic chronic kidney disease; N18.3 Chronic kidney disease, stage 3 (moderate); I50.32 Chronic diastolic (congestive) heart failure; Z79.02 Long term (current) use of antithrombotics/antiplatelets; Z79.82 Long term (current) use of aspirin; Z79.899 Other long term (current) drug therapy
CPT/HCPCS: 36415; 36416; 80048; 80053; 82553; 84484; 85025; 90471; 90670; 93005; G0009; G0378

== ENCOUNTER 2018-12-26 06:27 | Emergency (ER) | payer MEDICARE | END 2018-12-26 07:44 | disposition home or self-care (01) | LOC: ERS 06:27 | DX: I10 Essential (primary) hypertension (principal); E11.9 Type 2 diabetes mellitus without complications; Z86.73 Personal history of transient ischemic attack (TIA), and cerebral infarction without residual deficits; Z79.899 Other long term (current) drug therapy; Z79.82 Long term (current) use of aspirin | CPT/HCPCS: 99283 ==

== ENCOUNTER 2019-03-09 08:31 | Outpatient (CLI) | payer MEDICARE ==
--- NOTE | 2019-03-09 10:24 | CT ---
EXAM: CT chest, abdomen, and pelvis without IV contrast: HISTORY: Lymphoma, chronic lymphocytic leukemia, B-cell type. COMPARISON: 08/24/2018 FINDINGS: CT THORAX: Lungs: No consolidation, suspicious pulmonary nodule, or mass. Several small pneumatoceles again seen involving the right lung and to a lesser extent within the left lower lobe. There are interstitial densities and mild peribronchial thickening with mild bronchiectasis in the left lower lobe which is a stable finding compared to the prior study, and these findings were also seen on the study in 2014, although slightly increased from that exam. This also minimal bronchiectasis seen in the right lower lobe with suggestion of minimal filling defects within a few of these right lower lobe bronchi which could be related to small amount of mucous plugging/debris. Pleura: There has been interval decrease in size of the right pleural effusion with only very tiny ri ght pleural effusion now present. The left pleural effusion has resolved. Lymph nodes: There has been interval decrease in size of lymphadenopathy within the region of the AP window. Largest lymph node in the AP window on prior exam measured approximately 2.7 cm in short axis dimension, and on today's exam measures 1.4 cm. A left paratracheal lymph node on the prior exam measured 1.3 cm in short axis dimension and now measures 0.9 cm. There has also been interval decrease in size of a subcentimeter lymph node in the prevascular space. No new enlarged lymph nodes are seen; although, there is limited evaluation of the mediastinal structures due to the lack of intravenous contrast. Calcified right paratracheal lymph node is again noted. No axillary lymphadenop athy is present. And no definitive enlarged hilar lymph nodes are appreciated on this nonenhanced CT scan exam. Mediastinum: There has been interval decrease in the pericardial effusion with only trace amount manjit cardial fluid now present. Vascular calcifications are seen in the coronary arteries and involving the thoracic aorta. Chest wall: No abnormalities CT ABDOMEN AND PELVIS: Liver: Within normal limits for nonenhanced CT appearance. Few punctate calcified granulomata are see n. Gallbladder: Again noted are multiple gallbladder calculi.\ Pancreas: Normal nonenhanced CT appearance. Spleen:Calcified granulomata are again seen. Adrenal glands: Normal nonenhanced CT appearance. Kidneys: Mild symmetric caliectasis of uncertain etiology. Urinary Bladder: Decompressed but otherwise grossly normal in appearance. Reproductive organs: Prostate gland remains enlarged measuring 6.3 cm in transverse dimensions. Bowel: Opacified small bowel is normal in caliber. Small to moderate amount of retained fecal materia l seen in the colon. Adenopathy:No lymphadenopathy within the abdomen or pelvis. Peritoneum: No free fluid or fluid collection is seen. No free intraperitoneal gas is identified. Abdominal wall: No abnormalities seen. Vessels: Vascular calcifications in the abdominal aorta and iliac arteries. Osseous structures: Stable degenerative changes, but no lytic or sclerotic osseous lesions are identi fied. There is mild height loss of the T12 vertebral body which is a stable finding. IMPRESSION: 1. Improvement in mediastinal lymphadenopathy. No new enlarged lymph nodes are seen in the chest, abd omen, or pelvis. 2. Minimal bronchiectasis right lung base with stable chronic changes and mild bronchiectasis left chucho ng base. 3. Cholelithiasis. 4. Improvement in right pleural effusion as well as pericardial effusion. 5. Additional findings as described above.
== END 2019-03-09 08:32 | disposition home or self-care (01) ==
LOC: BICCT 08:31
PROVIDERS: ATTEND Internal Medicine Medical Oncology
DX: C83.08 Small cell B-cell lymphoma, lymph nodes of multiple sites (principal); C91.11 Chronic lymphocytic leukemia of B-cell type in remission; J47.9 Bronchiectasis, uncomplicated; K80.20 Calculus of gallbladder without cholecystitis without obstruction; J90 Pleural effusion, not elsewhere classified; R59.0 Localized enlarged lymph nodes
CPT/HCPCS: 71250; 74177; 82565

== ENCOUNTER 2019-06-18 11:04 | Outpatient (CLI) | payer MEDICARE ==
--- NOTE | 2019-06-18 12:03 | MRI ---
MRI Brain WO Con: 06/18/2019 12:00 AM CLINICAL HISTORY: History of stroke, occlusion left MCA. COMPARISON: 09/28/2018 FINDINGS: Extra axial spaces: Mild prominence due to parenchymal volume loss. Acute infarction: None. Ventricular system: There is ex vacuo dilatation, notably left frontal horn. Basal cisterns: Normal. Cerebral parenchyma: Encephalomalacia involving anterior division left MCA territory is superimposed upon microvascular ischemic disease of the cerebral white matter. Midline shift: None. Cerebellum: Normal. Brainstem: Normal. Paranasal sinuses:Scattered mucosal thickening. IMPRESSION:No acute intracranial abnormality. Left MCA territory encephalomalacia, superimposed upon chronic microvascular ischemic disease.
== END 2019-06-18 11:05 | disposition home or self-care (01) ==
LOC: BICMRI 11:04
PROVIDERS: ATTEND Psychiatry & Neurology Neurology
DX: I66.02 Occlusion and stenosis of left middle cerebral artery (principal); G93.89 Other specified disorders of brain
CPT/HCPCS: 70551; 82565

== ENCOUNTER 2019-09-07 08:26 | Outpatient (CLI) | payer MEDICARE ==
--- NOTE | 2019-09-07 09:54 | CT ---
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 Multiple contiguous axial images were obtained in a CT the chest without contrast. Coronal and sag ittal reformats were performed. 2. Multiple contiguous axial images were obtained and a CT of the abdomen and pelvis without contrast . Coronal and sagittal reformats were performed. FINDINGS: CT CHEST: HEART: Normal in size without focal cardiac abnormality. Calcifications in the coronary arteries and aorta. MEDIASTINUM: No hilar or mediastinal lymphadenopathy. Small subcentimeter lymph nodes are seen in the mediastinum. There are calcified right mediastinal lymph nodes. LUNGS: Bibasilar atelectasis. Bullae are seen scattered throughout the lungs. No suspicious pulmonary mass. PLEURAL SPACE: Tiny right pleural effusion. CHEST WALL SOFT TISSUES: Unremarkable CT ABDOMEN/PELVIS: ABDOMEN: LIVER: within normal limits. BILE DUCTS: Normal caliber. GALLBLADDER: Calcified gallstones. PANCREAS: within normal limits. SPLEEN: within normal limits. ADRENALS: within normal limits. KIDNEYS: within normal limits. PELVIS: REPRODUCTIVE ORGANS: Prostate hypertrophy URETERS: within normal limits. BLADDER: within normal limits. PERITONEUM: No ascites or free air, no fluid collection. BOWEL: Normal caliber. Normal appendix. MESENTERY AND RETROPERITONEUM: No enlarged mesenteric or retroperitoneal lymph nodes. VESSELS: Atherosclerotic calcifications. ABDOMINAL WALL: within normal limits. OSSEOUS STRUCTURES: Degenerative changes in the spine. IMPRESSION: 1. No evidence of recurrent or metastatic disease. 2. Cholelithiasis
== END 2019-09-07 08:27 | disposition home or self-care (01) ==
LOC: BICCT 08:26
PROVIDERS: ATTEND Internal Medicine Medical Oncology
DX: C83.08 Small cell B-cell lymphoma, lymph nodes of multiple sites (principal); K80.20 Calculus of gallbladder without cholecystitis without obstruction
CPT/HCPCS: 71250; 74177

== ENCOUNTER 2020-01-24 16:24 | Outpatient (CLI) | payer MEDICARE ==
--- NOTE | 2020-01-24 21:10 | RAD ---
TWO VIEW CHEST: 01/24/20 Supine upright views. HISTORY: Abdominal distention. Large volume stool throughout the colon. Nonspecific small bowel gas. No evidence of free air. No abn ormal calcifications. IMPRESSION: Large volume stool in the colon. POS: AGW
== END 2020-01-24 16:25 | disposition home or self-care (01) ==
LOC: BICRAD 16:24
PROVIDERS: ATTEND Family Medicine
DX: R14.0 Abdominal distension (gaseous) (principal)
CPT/HCPCS: 74019

== ENCOUNTER 2020-02-23 14:20 | Inpatient (IN) | payer MEDICARE ==
[2020-02-23 14:39] LABS: #Basophils 0.1 thou/uL (0.0-0.2); #Eosinphils 0.1 thou/uL (0.0-0.7); #Lymphocytes 1.6 thou/uL (1.20-3.40); #Monocytes 0.3 thou/uL (0.11-0.59); #Neutrophils 2.1 thou/uL (1.40-6.50); %Basophils 1.8 % (0.0-1.0); %Eosinophils 2.1 % (0.0-10.0); %Lymphocytes 38.8 % (21.0-51.0); %Monocytes 6.9 % (0.0-10.0); %Neutrophils 50.4 % (42.0-75.0); Hemoglobin 10.7 g/dL (14.0-18.0); Mean Corpuscular HGB CONC 32.9 g/dL (32.0-36.0); Mean Corpuscular Hemoglobin 31.3 pg (27.0-31.0); Mean Corpuscular Volume 95.4 fL (78.0-98.0); Mean Platelet Volume 9.5 fL (7.4-10.4); Platelet Count 153 thou/uL (130-400); RBC Distribution Width 12.9 % (11.5-14.5); Red Blood Cell (RBC) Count 3.43 mill/uL (4.70-6.10); White Blood Cell (WBC) Count 4.2 thou/uL (4.8-10.8)
--- NOTE | 2020-02-23 14:55 | RAD ---
CHEST ONE VIEW: 02/23/20 HISTORY: Weakness and lethargy. COMPARISON: 09/28/18. FINDINGS: Less than optimal inspiration with cardiomegaly. Old granulomatous disease. No confluent pneumonia, o vert edema, or pleural effusion. IMPRESSION: No significant acute intrathoracic disease. Cardiomegaly, stable. Old granulomatous disease. Atherosc lerosis of the aorta, stable. POS: RRE
[2020-02-23 15:03] LABS: ALT (SGPT) Less than 7 U/L (8-55); AST (SGOT) 10 U/L (5-34); Albumin 3.3 g/dL (3.4-4.8); Alkaline Phosphatase 58 U/L (40-110); Anion Gap 12 mmol/L (10-20); BUN (Urea Nitrogen) 32 mg/dL (8.4-25.7); Bilirubin, Total 0.5 mg/dL (0.2-1.2); CK (CPK) 98 U/L (30-200); Calc. Creatinine Clearance 0 mL/min (70-130); Calcium 8.4 mg/dL (7.8-10.44); Carbon Dioxide 21 mmol/L (23-31); Chloride 109 mmol/L (98-107); Estimated GFR-MDRD 29; Globulin 2.3 g/dL (2.4-3.5); Glucose 133 mg/dL (83-110); Lipase 23 U/L (8-78); Potassium 4.5 mmol/L (3.5-5.1); Protein, Total 5.6 g/dL (5.8-8.1); Sodium 137 mmol/L (136-145)
[2020-02-23] MEDS ORDERED: Aspirin Chewable 81 MG TAB ONE (15:09)
[2020-02-23] MEDS ORDERED: Enoxaparin Sodium 100 MG/ML SYRINGE ONE (15:14)
[2020-02-23 15:22] LABS: CKMB 2.6 ng/mL (0-6.6)
[2020-02-23] MEDS ORDERED: Ondansetron PF 4 MG/2 ML Vial IVP PRN ×2 (16:55→20:56)
[2020-02-23] MEDS ORDERED: Acetaminophen 325 MG TAB PO PRN ×2 (16:55→20:56)
[2020-02-23] MEDS ORDERED: hydrALAZINE 25 MG TAB PO PRN (16:57)
[2020-02-23] MEDS ORDERED: traMADol HCl 50 MG TAB PO PRN ×2 (16:57→20:57)
[2020-02-23] MEDS ORDERED: Tamsulosin HCl 0.4 MG CAP PO SCH ×2 (17:00→23:45)
[2020-02-23] MEDS ORDERED: Dextrose 50% Abboject 50 ML SYRINGE SLOW IVP PRN ×2 (17:02→20:57)
[2020-02-23] MEDS ORDERED: HumaLOG 300 UNITS/3 ML VIAL SC PRN ×2 (17:02→20:58)
[2020-02-23] MEDS ORDERED: Dextrose 5% in Water 1,000 ML IV PRN ×2 (17:02→20:57)
[2020-02-23 18:37] LABS: Troponin I 0.214 ng/mL (< 0.028)
[2020-02-23 19:53] VITALS: BMI 28.5
--- NOTE | 2020-02-23 20:57 | CON ---
DATE OF CONSULTATION: PRIMARY CARE DOCTOR: Dr. Christian Purdy. PRIMARY LEAD COOK: Dr. Zepeda. PRIMARY ONCOLOGIST: Dr. Jorge. REASON FOR CARDIOLOGY CONSULT: Possible Complete heart block. HISTORY OF PRESENT ILLNESS: Mr. Rios is a very pleasant 84-year-old male with significant history of hypertension, arthritis, borderline diabetes but without any medication, high cholesterol, chronic kidney disease, systolic heart failure, lymphoma, which is managed by Dr. Jorge. The patient was in the hospital in December for status post right hip fracture repair. Since then, he has been at rehab as outpatient. Vital signs have been stable at the rehab per family. According to the patient's family member, the patient's was checking his vital signs at least twice a day. His blood pressure has been 140 to 150 over 70s with heart rate as low 50s to low 60s. A couple weeks ago, patient's heart rate was 29 when Occupational Therapy was checking his vital signs. The EMS was called. However, when EMS arrived, the patient's heart rate was back to normal around 50s. The patient's primary care doctor cut done the patient's carvedilol to 6.25mg from 12.5 mg of carvedilol twice a day. He has been on the carvedilol 6.25 mg twice a day since then. According to the , the patient did not take extra carvedilol today. Around 1 o'clock today, his blood pressure was 152/76 with a heart rate 58. He had lunch and hydralazine and isosorbide 10 mg at that time. Around 2 o'clock in the afternoon, the patient started complaining of lethargic. His tried to check his vital signs several time; however, his blood pressure machine could not read his vital sign which is usually working properly. Due to the reason, the family member called the EMS. According to , EMS told his that the patient is going to be under some sedation for possible external pacing. Unfortunately , the patient cannot remember any episode of external pacing possibly due to the pain medication. When the patient arrived to the ER, the external pacing was discontinued. The patient's heart rate has been sinus rhythm with heart rate 50s with left bundle branch block with trifascicular block. Compared to previous EKG, the patient's EKG has not changed since then. The patient denied any chest pain, shortness of breath, or dizziness during the episode. At this moment, the patient denies any chest pain, heaviness, tightness, shortness of breath, or any other cardiac complaints. The patient had echocardiograms done at Dr. Zepeda's office in August 2018 with EF 50% to 55%, mild left atrial enlargement, severe LVH and diastolic dysfunction, moderate to severe mitral valve regurgitation, and moderate tricuspid regurgitation, and mildly elevated right ventricular systolic pressure. The patient had a stress test done in 2017 with hypokinetic anterolateral wall and hypokinetic apical wall, but no ischemia with EF 43%. HOME MEDICATIONS: 1. Aspirin 81 mg once a day. 2. Imbruvica 420 mg once a day. 3. Plavix 75 mg once a day. 4. Nifedipine 90 mg once a day. 5. Isosorbide dinitrate 10 mg twice a day. 6. Hydralazine 50 mg 3 times a day. 7. Atorvastatin 80 mg once a day. 8. Carvedilol 6.25 mg twice a day. 9. Tamsulosin 0.4 mg once a day. 10. Lasix 40 mg once a day as needed. 11. Vascepa 1 g two capsules twice a day. PAST MEDICAL HISTORY: Hypertension, arthritis, borderline diabetes, hyperlipidemia, lymphoma, which is managed by Dr. Jorge, chronic kidney disease, chronic heart failure, history of CVA in September 2018. SURGICAL HISTORY: Hernia repair and right femoral hip fracture repair in December 2019. FAMILY HISTORY: His mother has a history of hypertension and the patient's sister has a history of diabetes. SOCIAL HISTORY: He is . No children. He is an ex-smoker. He quit 33 years ago. He used to smoke one pack a day. He denies EtOH or illicit drug abuse. He has been exercising at the rehab twice a week. However, according to family member, he does not do much around the house. REVIEW OF SYSTEMS: 12-point review of systems negative unless otherwise mentioned in HPI. PHYSICAL EXAMINATION: VITAL SIGNS: Blood pressure 156/70, heart rate around 52, sinus rhythm with left bundle branch block. O2 saturation 97% on room air. GENERAL: Patient is alert and oriented x4, not in any acute distress. HEENT: Head normocephalic, atraumatic. EYES: Extraocular muscle movement intact. ENT AND MOUTH: Oral and nasal mucosa moist without lesion. NECK: Supple. Normal range of motion. No JVD. RESPIRATORY: Clear to auscultate bilaterally. No wheezing, rales, or rhonchi noted. CARDIOVASCULAR: Regular rate and rhythm. Normal S1, S2. No S3 or S4. No significant murmurs have been noted. 2+ pulses in the bilateral upper extremities and bilateral lower extremities. No edema in the lower extremities. ABDOMEN: Soft, nontender. No mass to palpitate. Bowel sounds are present. MUSCULOSKELETAL: Patient able to move all extremities without difficulty. The patient denied claudication. Patient uses a walker for activities. SKIN: Warm and dry. No lesion, rash, or erythema noted. NEUROLOGIC: The patient is alert and oriented x4. Slightly delayed to response , possibly due to the history of CVA. PSYCHIATRIC: Patient's mood is appropriate. LABORATORY DATA: WBC 4.2, hemoglobin 10.7, hematocrit 32.7, platelet 153. Sodium 137, potassium 4.5, BUN 32, creatinine is 2.6 to 1. Lactic acid 1.3. AST 10, ALT less than 7. CK is 98, CK-MB is 2.6, and troponin 0.205, 0.214 The patient's chest x-ray shows no significant acute intrathoracic disease, stable cardiomegaly, and atherosclerosis of aorta, which is stable. ASSESSMENT AND PLAN: 1. 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 Compared to the patient's previous EKG, the patient's EKG has not changed at least since this year. The patient complained of lethargy lately. The patient denied any syncopal episodes or near syncopal episodes. However, complained of lethargy lately according to the family member. The patient might need the BiV pacemaker placement due to left bundle branch block with trifascicular block. EP consult may be reasonable for possible BiV pacemaker. We would like to hold the beta-jesus at this moment. 2. Elevated troponin level. Possible the patient had external pacing when he was transferred to the emergency department by the EMS. That may have caused elevated troponin. At this moment, the patient is asymptomatic. We would like to continue to monitor on the telemetry and trending troponin level. 3. Hypertension. The patient's blood pressure is little bit elevated than normal. We would like to continue to monitor and adjust the patient's medications as needed. 4. Hyperlipidemia. He is on atorvastatin. 5. Chronic kidney disease. Since the patient's EF in August 2018 has been stable, he usually drinks 32 ounces a day. The patient was recommend to have a little bit more fluid intake for the kidney function. He had a good EF in August 2018, and he is going to have another echocardiogram during this admission. 6. History of cerebrovascular accident in September 2018. It is possible that is why patient is on Plavix at home. Thank you very much for Cardiology Service request for participating in the care of this patient. We will follow along with the patient's care team and make further recommendations as appropriate. Job ID: [id number] [id number]
[2020-02-23] MEDS ORDERED: Isosorbide Dinitrate 5 MG TAB PO SCH (21:00)
[2020-02-23] MEDS ORDERED: Atorvastatin Calcium 40 MG TAB PO SCH (21:00)
[2020-02-23] MEDS: Isosorbide Dinitrate 5 MG TAB PO SCH (21:33)
[2020-02-23] MEDS: Atorvastatin Calcium 40 MG TAB PO SCH (21:33)
[2020-02-24 04:44] LABS: #Eosinphils 0.1 thou/uL (0.0-0.7); #Lymphocytes 1.4 thou/uL (1.20-3.40); #Monocytes 0.3 thou/uL (0.11-0.59); #Neutrophils 2.2 thou/uL (1.40-6.50); %Basophils 0.6 % (0.0-1.0); %Eosinophils 1.5 % (0.0-10.0); %Lymphocytes 35.2 % (21.0-51.0); %Monocytes 8.4 % (0.0-10.0); %Neutrophils 54.3 % (42.0-75.0); Hemoglobin 9.7 g/dL (14.0-18.0); Mean Corpuscular HGB CONC 33.4 g/dL (32.0-36.0); Mean Corpuscular Hemoglobin 31.7 pg (27.0-31.0); Mean Corpuscular Volume 94.9 fL (78.0-98.0); Mean Platelet Volume 9.6 fL (7.4-10.4); Platelet Count 136 thou/uL (130-400); RBC Distribution Width 12.7 % (11.5-14.5); Red Blood Cell (RBC) Count 3.07 mill/uL (4.70-6.10)
[2020-02-24 05:04] LABS: Anion Gap 11 mmol/L (10-20); BUN (Urea Nitrogen) 32 mg/dL (8.4-25.7); Calc. Creatinine Clearance 30 mL/min (70-130); Calcium 8.1 mg/dL (7.8-10.44); Carbon Dioxide 22 mmol/L (23-31); Chloride 110 mmol/L (98-107); Estimated GFR-MDRD 30; Glucose 85 mg/dL (83-110); Magnesium 1.9 mg/dL (1.6-2.6); Potassium 4.4 mmol/L (3.5-5.1); Sodium 139 mmol/L (136-145)
[2020-02-24] MEDS ORDERED: Aspirin 81 mg Enteric Coated Tablet PO SCH (09:00)
[2020-02-24] MEDS ORDERED: Enoxaparin Sodium 30 MG/0.3 ML SYRINGE SC SCH (09:00)
[2020-02-24] MEDS ORDERED: Clopidogrel Bisulfate 75 MG TAB PO SCH (09:00)
--- NOTE | 2020-02-24 09:15 | HP ---
CHIEF COMPLAINT: "Feeling bad." HISTORY OF PRESENT ILLNESS: The patient is an 84-year-old male with past medical history of hypertension, hyperlipidemia, diabetes mellitus type 2, CVA, chronic kidney disease, and arthritis who presented to the hospital today with complaints of feeling bad and generalized weakness. The patient's symptoms started earlier today when he was sitting in the chair this afternoon and felt weak and tired. The patient reported dizziness and inability to pursue his normal activities due to feeling tired. His reported that the patient was "lethargic." The patient is compliant with his medications and took all of them this morning. His reported that she tried to take his blood pressure at home but was not able to get a reading which alarmed her. They presented to the ER, where the patient was found to be bradycardic. EKG was officially read as complete heart block. The patient was temporarily paced, but then that was discontinued as the heart rate was spontaneously in the 50s. The patient currently has no symptoms other than feeling weak. He denies chest pain, palpitations, shortness of breath, dizziness, or syncope. REVIEW OF SYSTEMS: Negative except as noted in HPI. PAST MEDICAL HISTORY: As noted above. SURGICAL HISTORY: Hernia repair and left hip surgery. FAMILY HISTORY: Noncontributory. SOCIAL HISTORY: The patient is a former smoker. Denies alcohol use or illicit drug use. ALLERGY: The patient is allergic to codeine. PHYSICAL EXAMINATION: GENERAL: The patient is alert and oriented x3. He does not appear to be in any acute distress. HEENT: Head is normocephalic and atraumatic. Extraocular muscles are intact. NECK: Supple. No JVD. CHEST: Clear to auscultation bilaterally. CARDIOVASCULAR: Revealed normal S1 and S2. Regular rhythm with bradycardia was noted. No murmurs, rubs, or gallops. ABDOMEN: Soft, nontender, nondistended. NEUROLOGIC: Revealed normal cranial nerves. No focal deficits. EXTREMITIES: Did not show any edema. LABORATORY DATA: Positive for creatinine level of 2.6. Of note, his baseline is around 2-2.5. His initial troponin was slightly elevated at 0.2, and CBC revealed mild leukopenia with WBC count 4.2. EKG in my interpretation appears to be first-degree heart block. Chest x-ray shows stable cardiomegaly. ASSESSMENT: 1. Symptomatic bradycardia likely due to first-degree heart block. 2. Hypertension. 3. Hyperlipidemia. 4. History of cerebrovascular accident. 5. Diabetes mellitus type 2. PLAN: 1. Place in telemetry. Hold carvedilol. No indication for supplemental pacing or atropine at this time as the patient is maintaining his heart rate in the 50s and does not appear to be hemodynamically unstable. 2. Trend troponins. 3. Obtain echocardiogram. 4. Consult Cardiology. 5. Lovenox for DVT prophylaxis. Job ID: [id number]
[2020-02-24] MEDS: Isosorbide Dinitrate 5 MG TAB PO SCH (09:35)
[2020-02-24] MEDS: Clopidogrel Bisulfate 75 MG TAB PO SCH (09:35)
[2020-02-24] MEDS: Aspirin 81 mg Enteric Coated Tablet PO SCH (09:35)
[2020-02-24] MEDS: Enoxaparin Sodium 30 MG/0.3 ML SYRINGE SC SCH (09:35)
--- NOTE | 2020-02-24 10:47 | PDOC.HOSPP ---
- Subjective Encounter Date: 02/24/20 Subjective: Bradycardia improved. The patient is having no symptoms today. - Objective Vital Signs & Weight: Vital Signs (12 hours) Temp Pulse Resp BP Pulse Ox 02/24/20 08:00 97.7 F 58 L 16 164/78 H 95 02/24/20 03:44 98.5 F 62 18 159/75 H 98 Weight Weight 207 lb 10.807 oz I&O: 02/23/20 02/24/20 02/25/20 06:59 06:59 06:59 Intake Total 100 Output Total 500 Balance -400 Result Diagrams: 02/24/20 04:23 02/24/20 04:23 Additional Labs: Accuchecks 02/24/20 02/23/20 06:04 20:42 POC Glucose 99 108 Hospitalist ROS - Medication Medications: Active Medications Generic Name Dose Route Start Last Admin Trade Name Freq PRN Reason Stop Dose Admin Aspirin 81 mg 02/24/20 09:00 02/24/20 09:35 Ecotrin PO 81 mg DAILY MITESH Administration Atorvastatin Calcium 80 mg 02/23/20 21:00 02/23/20 21:33 Lipitor PO 80 mg HS MITESH Administration Clopidogrel Bisulfate 75 mg 02/24/20 09:00 02/24/20 09:35 Plavix PO 75 mg DAILY MITESH Administration Enoxaparin Sodium 30 mg 02/24/20 09:00 02/24/20 09:35 Lovenox SC 30 mg 0900 MITESH Administration - Exam General Appearance: awake alert ENT: normocephalic atraumatic Heart: RRR Respiratory: normal chest expansion, no tachypnea Extremities: no cyanosis Neurological: cranial nerve grossly intact, no focal deficits Hosp A/P (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 Beta-blockers on hold. Cardiology consulted EP for possible biventricular pacemaker consideration.
[2020-02-24] MEDS: Sodium Chloride 0.9% 1,000 ML IV SCH ×2 (11:21→22:45)
[2020-02-24] MEDS: Tamsulosin HCl 0.4 MG CAP PO SCH (16:23)
--- NOTE | 2020-02-24 18:23 | CON ---
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 His called 911. When they arrived heart rate apparently was in the 30s. We do not have these rhythm strips available and an external pacemaker was applied as well as the patient was given Versed. He was transferred here to [facility]. The device was removed and the heart rate has remained in the 50s to 60s. At home according to the 's records his heart rate has been in the 50s to 70s. He had also been on Coreg in the past up to 12.5 mg. This was discontinued about 6 weeks ago by the primary care physician down to 6.25 mg twice a day. This patient had an echocardiogram recently which showed ejection fraction of 50-55% with diastolic dysfunction, and severe mitral valve regurgitation. He also had a stress test in 2018 which showed no evidence of ischemia. After the patient arrived here, he has remained stable since being in the hospital. He denied any chest pain, shortness of breath, diaphoresis, nausea, or vomiting. He just became somewhat confused and according to him he said he was just out of it. 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 PAST MEDICAL HISTORY: Please refer to the notes dictated by the nurse practitioner, but generally he has hypertension, chronic kidney disease. He has had CVA in 2019. 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 He has been on treatment. He has hypercholesterolemia. He has borderline diabetes. SOCIAL HISTORY: Please refer the notes dictated by the nurse practitioner. FAMILY HISTORY: Please refer the notes dictated by the nurse practitioner. REVIEW OF SYSTEMS: Please refer the notes dictated by the nurse practitioner. MEDICATIONS: Please refer the notes dictated by the nurse practitioner. ALLERGIES: PLEASE REFER THE NOTES DICTATED BY THE NURSE PRACTITIONER. PHYSICAL EXAMINATION: GENERAL: Reveals a well-developed, well-nourished gentleman, who is in no acute distress. His blood pressure has been in the 149/79, this morning was 164/98, heart rates in the 50s to 60s, respiratory rate 16. He is afebrile. HEENT: Shows the head to be normocephalic and atraumatic. Carotid pulses are present. There were no bruits. CHEST: Clear to auscultation. There were no rales, rhonchi, or wheezing. CARDIOVASCULAR: Reveals bradycardia which is regular. He has a 2/6 systolic murmur at the apex of the left ventricle compatible with mitral valve regurgitation. ABDOMEN: Soft and nontender. Positive bowel sounds are present. EXTREMITIES: Show no clubbing, cyanosis, or edema. He also recently had a right hip fracture. This is still healing, but he is able to get around with a walker. SKIN: Warm and dry. Pedal pulses are present, but somewhat difficult to palpate. NEUROLOGICAL: There is no gross focal motor deficits noted. LABORATORY DATA: Shows a BUN of 32, creatinine 2.54, potassium 4.4, sodium is 139, hemoglobin was 9.7 with hematocrit 29.1, WBC of 4.0, and platelet count of 136. 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 IMPRESSION: 1. Bradycardia, which is not new. Actually he had very similar EKGs, that is what he had over a year ago. He does have chronic bradycardia as well as a chronic right bundle branch block and a first-degree heart block. Now he has had intermittent episodes of second-degree heart block type 1. This patient most likely will need to undergo a pacemaker. The question will be whether or not to implant him with a biventricular pacemaker. Due to the age of the patient and the fact that most likely he would almost inevitably would be pacing 100% in the ventricle, which over time would decrease his left ventricular systolic function. We will discuss this with Dr. Zepeda tomorrow morning and can keep the patient n.p.o. at least for breakfast and can decide whether or not he needs to undergo pacemaker insertion tomorrow, whether or not he gets a dual chamber pacemaker or whether or not he gets a biventricular pacemaker. 2. Hypertension. We will need to continue his hydralazine. We will also add other medications, perhaps Norvasc or amlodipine in order to decrease the blood pressure while the beta blockers are on hold. Further care of the patient will be by Dr. Zepeda when he evaluates the patient tomorrow. Also please note the patient does have diastolic dysfunction. 3. Severe mitral valve regurgitation. Job ID: [id number]
[2020-02-24] MEDS: Atorvastatin Calcium 40 MG TAB PO SCH (21:19)
[2020-02-24] MEDS: Isosorbide Dinitrate 20 MG TAB PO SCH (21:19)
[2020-02-24] MEDS: hydrALAZINE 25 MG TAB PO PRN (21:19)
--- NOTE | 2020-02-25 01:39 | PDOC.EVN ---
Event Note - Event Note Event Note: Nurse called. 4 beats non sustained, asymptomatic Vtach. labs WNL and ordered for am. no further intervention.
[2020-02-25 05:02] LABS: %Eosinophils 2.7 % (0.0-10.0); %Lymphocytes 39.5 % (21.0-51.0); %Monocytes 9.5 % (0.0-10.0); %Neutrophils 48.1 % (42.0-75.0); Hemoglobin 9.5 g/dL (14.0-18.0); Mean Corpuscular HGB CONC 32.3 g/dL (32.0-36.0); Mean Corpuscular Hemoglobin 30.7 pg (27.0-31.0); Mean Corpuscular Volume 94.9 fL (78.0-98.0); Mean Platelet Volume 9.8 fL (7.4-10.4); Platelet Count 130 thou/uL (130-400); RBC Distribution Width 12.8 % (11.5-14.5); White Blood Cell (WBC) Count 3.5 thou/uL (4.8-10.8)
[2020-02-25 05:03] LABS: #Eosinphils 0.1 thou/uL (0.0-0.7); #Lymphocytes 1.4 thou/uL (1.20-3.40); #Monocytes 0.3 thou/uL (0.11-0.59); #Neutrophils 1.7 thou/uL (1.40-6.50); %Basophils 0.1 % (0.0-1.0)
[2020-02-25 05:26] LABS: Anion Gap 9 mmol/L (10-20); BUN (Urea Nitrogen) 28 mg/dL (8.4-25.7); Calc. Creatinine Clearance 38 mL/min (70-130); Calcium 7.9 mg/dL (7.8-10.44); Carbon Dioxide 23 mmol/L (23-31); Chloride 111 mmol/L (98-107); Estimated GFR-MDRD 39; Glucose 76 mg/dL (83-110); Potassium 4.1 mmol/L (3.5-5.1); Sodium 139 mmol/L (136-145)
[2020-02-25 05:27] LABS: Band 2 % (5-11); Eosinophils 3 % (0-10); Hemoglobin 9.6 g/dL (14.0-18.0); Lymphocytes 39 % (21-51); MDiff Complete? YES; Mean Corpuscular HGB CONC 32.5 g/dL (32.0-36.0); Mean Corpuscular Volume 95.3 fL (78.0-98.0); Mean Platelet Volume 9.9 fL (7.4-10.4); Monocytes 6 % (0-10); Neutrophil 50 % (42-75); Platelet Count 133 thou/uL (130-400); Platelet Morphology Comment Appears Adequate; RBC Distribution Width 12.8 % (11.5-14.5); Red Blood Cell (RBC) Count 3.09 mill/uL (4.70-6.10); White Blood Cell (WBC) Count 3.3 thou/uL (4.8-10.8)
[2020-02-25] MEDS: hydrALAZINE 25 MG TAB PO PRN (08:32)
[2020-02-25] MEDS ORDERED: Amlodipine 10 MG TAB PO SCH (09:45)
[2020-02-25] MEDS: IMBRUVICA 420 MG PO SCH (12:20)
[2020-02-25] MEDS: Aspirin 81 mg Enteric Coated Tablet PO SCH (12:20)
[2020-02-25] MEDS: Enoxaparin Sodium 30 MG/0.3 ML SYRINGE SC SCH (12:20)
[2020-02-25] MEDS: Isosorbide Dinitrate 20 MG TAB PO SCH ×2 (12:21→20:31)
[2020-02-25] MEDS: Clopidogrel Bisulfate 75 MG TAB PO SCH (12:21)
[2020-02-25] MEDS: Sodium Chloride 0.9% 1,000 ML IV SCH (14:41)
[2020-02-25] MEDS: hydrALAZINE 25 MG TAB PO SCH ×2 (14:41→20:30)
--- NOTE | 2020-02-25 15:33 | PDOC.HOSPP ---
- Subjective Encounter Date: 02/25/20 Subjective: No new complaints. - Objective Vital Signs & Weight: Vital Signs (12 hours) Temp Pulse Resp BP BP Pulse Ox 02/25/20 12:30 179/69 H 02/25/20 11:38 97.5 F L 56 L 14 97 02/25/20 10:44 58 L 173/83 H 02/25/20 08:30 97.5 F L 52 L 18 184/75 H 97 Weight Weight 207 lb 10.807 oz I&O: 02/24/20 02/25/20 02/26/20 06:59 06:59 06:59 Intake Total 100 1390 Output Total 500 600 Balance -400 790 Result Diagrams: 02/25/20 04:29 02/25/20 04:29 Additional Labs: Accuchecks 02/25/20 02/25/20 02/24/20 11:43 06:05 21:02 POC Glucose 81 79 93 02/24/20 17:15 POC Glucose 88 Hospitalist ROS - Medication Medications: Active Medications Generic Name Dose Route Start Last Admin Trade Name Cassidy PRN Reason Stop Dose Admin Aspirin 81 mg 02/24/20 09:00 02/25/20 12:20 Ecotrin PO 81 mg DAILY MITESH Administration Atorvastatin Calcium 80 mg 02/23/20 21:00 02/24/20 21:19 Lipitor PO 80 mg HS MITESH Administration Clopidogrel Bisulfate 75 mg 02/24/20 09:00 02/25/20 12:21 Plavix PO 75 mg DAILY MITESH Administration Enoxaparin Sodium 30 mg 02/24/20 09:00 02/25/20 12:20 Lovenox SC 30 mg 0900 MITESH Administration Hydralazine HCl 75 mg 02/25/20 15:00 02/25/20 14:41 Apresoline PO 75 mg TID MITESH Administration Sodium Chloride 1,000 mls @ 75 mls/hr 02/24/20 09:45 02/25/20 14:41 Normal Saline 0.9% IV 1,000 mls .[id number] MITESH Administration Isosorbide Dinitrate 20 mg 02/24/20 21:00 02/25/20 12:21 Isordil PO 20 mg BID MITESH Administration Imbruvica 420 Mg Tab 0 each 02/25/20 09:00 02/25/20 12:20 PO 1 each DAILY MITESH Administration Sodium Chloride 10 ml 02/24/20 21:00 02/25/20 10:45 Flush - Normal Saline IVF 10 ml Q12HR MITESH Administration Tamsulosin HCl 0.4 mg 02/24/20 17:00 02/24/20 16:23 Flomax PO 0.4 mg 1700 MITESH Administration - Exam General Appearance: awake alert ENT: normocephalic atraumatic Neck: supple, no JVD Heart - other findings: Bradycardia Respiratory: normal chest expansion, no tachypnea Neurological: cranial nerve grossly intact, no weakness Hosp A/P (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 Beta-blockers on hold. EP planning pacemaker placement tomorrow. Blood pressure has been uncontrolled. Hydralazine was increased to 75 mg every 8 hours scheduled. Amlodipine 10 mg orally daily was added. Continue isosorbide dinitrate.
[2020-02-25] MEDS: Tamsulosin HCl 0.4 MG CAP PO SCH (16:48)
[2020-02-25] MEDS: Atorvastatin Calcium 40 MG TAB PO SCH (20:30)
[2020-02-26] MEDS: Sodium Chloride 0.9% 1,000 ML IV SCH ×3 (03:53→23:59)
[2020-02-26 05:13] LABS: Anion Gap 10 mmol/L (10-20); BUN (Urea Nitrogen) 28 mg/dL (8.4-25.7); Calc. Creatinine Clearance 35 mL/min (70-130); Calcium 7.7 mg/dL (7.8-10.44); Carbon Dioxide 20 mmol/L (23-31); Chloride 111 mmol/L (98-107); Estimated GFR-MDRD 36; Glucose 80 mg/dL (83-110); Potassium 4.4 mmol/L (3.5-5.1); Sodium 137 mmol/L (136-145)
--- NOTE | 2020-02-26 05:58 | CON ---
DATE OF CONSULTATION: 02/25/2020 I am seeing Mr. Rios at our [facility] as an electrophysiology eyewear consultant on the telemetry floor. His problems are; 1. Presentation with symptomatic bradycardia, extreme fatigue, near syncope. a. Evidence sinus node disease worsened by low-dose beta-jesus therapy. b.Advanced baseline conduction disease with Chronic right bundle-branch block, markedly prolonged first-degree AV block, c. Telemtry documented episodic of Mobitz I to II second-degree AV block, occasional 2:1 AV conduction block. ER documentation of complete AV block. is seen. 3. Nonsustained ventricular tachycardia. 4. Chronic CHF with diastolic heart failure, 2D echo from 02/24/2020 demonstrates LVEF of 65%, normal left atrial size, mild MR, mild TR. 5. 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 6. History of hypertension. 7. Valvular heart disease with severe mitral regurgitation in the past, mild by echo. ALLERGIES: NONE NOTED. MEDICATIONS: At home included; 1. Coreg 12.5 mg p.o. half tablet twice a day, which is a change in January. 2. Tamsulosin. 3. . 4. Procardia XL. 5. Isordil. 6. Plavix. 7. Aspirin. 8. Hydralazine. 9. Imbruvica. 10. Lipitor. 11. Travoprost. SUBJECTIVE: Mr. Rios is a poor historian. History obtained from truck service manager in the room, as well as from the notes. This gentleman has developed progressive fatigue and weakness, unable to get up from a sitting position. He was noted to be lethargic by his truck service manager. In the ER, he was found to be bradycardic with transient complete AV block was noted. He even received some temporary trasncutaneous pacing, eventually spontaneous heart rate in the 50s occurred and the beta- jesus therapy was held. I was consulted for consideration for BiV pacemaker implantation. Currently, the patient is doing fair. Denies angina, CHF-like symptoms. No dizziness, loss of consciousness. The fatigue somewhat improved, the lethargy as well. No fever, chills, or cough. No dizziness or stroke-like symptoms. Respiratory system, otherwise unremarkable. A 12-point negative review of system is noted. PAST MEDICAL HISTORY: As above, includes hyperlipidemia, diabetes type 2, CVA, chronic kidney disease, arthritis, hypertension, prior stroke, and diastolic heart failure. SOCIAL HISTORY: The patient is a former smoker. Denies EtOH or drug abuse. Lives at home with the help of a truck service manager. FAMILY HISTORY: Not contributory. OBJECTIVE DATA: VITAL SIGNS: Blood pressure is 173/83, heart rate 58, temperature 97.5, and oxygen saturation 97%. GENERAL: Reveals alert and oriented elderly man, in no apparent distress. NECK: Supple. Jugular veins not distended. CHEST: Coarse without crackles. CARDIAC: Heart sounds are regular, but bradycardic. No murmur or gallop. ABDOMEN: Benign. Bowel sounds positive. EXTREMITIES: Lower extremities without edema, clubbing, or cyanosis. DATABASE: EKG is reviewed. Initial EKG from February 22 at 2:27 p.m. shows sinus bradycardia at 52 beats per minute. First-degree AV block is noted. Subsequent EKGs reveal sinus bradycardia and first-degree AV block and Mobitz type I second-degree AV block are documented. Occasional non-conducted PACs are seen with 2:1 AV conduction. The QRS is markedly prolonged with all recordings at 162 milliseconds. A 4-beat nonsustained wide-complex tachycardia noted on telemetry as well. Laboratory data: White cell count 3.3, hemoglobin 9.6, and platelet count is 133. Sodium 139, potassium 4.1, BUN is 28, and creatinine 2.02. The chest x-ray from admission shows no acute intrathoracic disease disease is noted. ASSESSMENT AND PLAN: Mr. Rios is a pleasant 84-year-old man with prior history of stroke, hypertension, diabetes, diastolic heart failure, severe mitral regurgitation, currently mild only. He presents with marked bradycardia, although in the setting of beta-jesus use , which though has been decreased gradually to [id number] dose of carvedilol 6.25 mg twice a day. Complete atrioventricular block was noted in ER and he has at baseline significant conduction disease, first-degree atrioventricular block and marked right bundle-branch block. He did have complete atrioventricular block and I doubt this was only due to the beta-jesus effect and further bradycardia is expected to occur in this elderly gentleman. 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 I discussed the treatment options, which should include permanent pacing. He has history of diastolic dysfunction and he certainly will have high-grade RV pacing , BiV pacing is a reasonable consideration even in the setting of preserved LV systolic function, to avoid future worsening heart failure exacerbation. Pros and cons of the procedure were discussed with him and his truck service manager. They understand the risk of infection, bleeding, pneumothorax, tamponade, lead dislodgement and recalls. They are willing to proceed. We will schedule him with the nearest date, likely 02/25 in the p.m. Job ID: [id number] [facility]
[2020-02-26 06:05] LABS: Band 2 % (5-11); Eosinophils 1 % (0-10); Hemoglobin 9.3 g/dL (14.0-18.0); Hypochromia SLIGHT = 6-15 cells (100X) (0-5/hpf); Lymphocytes 38 % (21-51); MDiff Complete? YES; Mean Corpuscular HGB CONC 31.3 g/dL (32.0-36.0); Mean Corpuscular Hemoglobin 30.4 pg (27.0-31.0); Monocytes 3 % (0-10); Neutrophil 56 % (42-75); Platelet Count 127 thou/uL (130-400); Platelet Morphology Comment Appears Adequate; RBC Distribution Width 12.8 % (11.5-14.5); Red Blood Cell (RBC) Count 3.06 mill/uL (4.70-6.10); White Blood Cell (WBC) Count 4.3 thou/uL (4.8-10.8)
[2020-02-26] MEDS: Enoxaparin Sodium 30 MG/0.3 ML SYRINGE SC SCH (09:00)
[2020-02-26] MEDS: Aspirin 81 mg Enteric Coated Tablet PO SCH (09:03)
[2020-02-26] MEDS: IMBRUVICA 420 MG PO SCH (09:03)
[2020-02-26] MEDS: Amlodipine 10 MG TAB PO SCH (09:03)
[2020-02-26] MEDS: Clopidogrel Bisulfate 75 MG TAB PO SCH (09:03)
[2020-02-26] MEDS: hydrALAZINE 25 MG TAB PO SCH ×3 (09:03→22:41)
[2020-02-26] MEDS: Isosorbide Dinitrate 20 MG TAB PO SCH ×3 (09:04→21:02)
[2020-02-26] MEDS ORDERED: Carvedilol 6.25 MG TAB PO SCH (09:45)
[2020-02-26] MEDS ORDERED: CEFAZOLIN 1 GM VIAL ONE (14:23)
[2020-02-26] MEDS ORDERED: Gentamicin 80 MG/2 ML VIAL ONE (14:23)
--- NOTE | 2020-02-26 14:40 | PDOC.HOSPP ---
- Subjective Encounter Date: 02/26/20 Subjective: No new complaints. - Objective Vital Signs & Weight: Vital Signs (12 hours) Temp Pulse Resp BP BP Pulse Ox 02/26/20 11:35 98.3 F 82 19 157/69 H 97 02/26/20 09:03 57 L 174/81 H 02/26/20 09:00 98.7 F 57 L 14 174/81 H 96 02/26/20 08:00 96 02/26/20 03:45 98.6 F 57 L 15 161/69 H 95 Weight Weight 207 lb 10.807 oz I&O: 02/25/20 02/26/20 02/27/20 06:59 06:59 06:59 Intake Total 4150 Output Total 2150 Balance 1999 Result Diagrams: 02/26/20 04:30 02/26/20 04:30 Additional Labs: Accuchecks 02/26/20 02/26/20 02/25/20 11:09 06:01 21:18 POC Glucose 87 89 90 02/25/20 16:49 POC Glucose 146 H Hospitalist ROS - Medication Medications: Active Medications Generic Name Dose Route Start Last Admin Trade Name Cassidy PRN Reason Stop Dose Admin Amlodipine Besylate 10 mg 02/26/20 09:00 02/26/20 09:03 Norvasc PO 10 mg DAILY MITESH Administration Aspirin 81 mg 02/24/20 09:00 02/26/20 09:03 Ecotrin PO 81 mg DAILY MITESH Administration Atorvastatin Calcium 80 mg 02/23/20 21:00 02/25/20 20:30 Lipitor PO 80 mg HS MITESH Administration Clopidogrel Bisulfate 75 mg 02/24/20 09:00 02/26/20 09:03 Plavix PO 75 mg DAILY MITESH Administration Enoxaparin Sodium 30 mg 02/24/20 09:00 02/25/20 12:20 Lovenox SC 30 mg 0900 MITESH Administration Hydralazine HCl 75 mg 02/25/20 15:00 02/26/20 09:03 Apresoline PO 75 mg TID MITESH Administration Sodium Chloride 1,000 mls @ 75 mls/hr 02/24/20 09:45 02/26/20 03:53 Normal Saline 0.9% IV 1,000 mls .[id number] MITESH Administration Isosorbide Dinitrate 20 mg 02/25/20 21:00 02/26/20 09:04 Isordil PO 20 mg TID MITESH Administration Imbruvica 420 Mg Tab 0 each 02/25/20 09:00 02/26/20 09:03 PO 1 each DAILY MITESH Administration Sodium Chloride 10 ml 02/24/20 21:00 02/26/20 09:04 Flush - Normal Saline IVF 10 ml Q12HR MITESH Administration Tamsulosin HCl 0.4 mg 02/24/20 17:00 02/25/20 16:48 Flomax PO 0.4 mg 1700 MITESH Administration - Exam General Appearance: awake alert ENT: normocephalic atraumatic Neck: supple Respiratory: normal chest expansion, no tachypnea Extremities: no cyanosis Neurological: cranial nerve grossly intact Hosp A/P (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 Beta-blockers on hold. EP planning pacemaker placement today. His blood pressure has been better controlled today. Continue amlodipine, isosorbide dinitrate, and hydralazine.
[2020-02-26] MEDS ORDERED: Fentanyl 100 MCG/2 ML VIAL ONE ×2 (14:45→15:09)
[2020-02-26] MEDS ORDERED: Propofol 1,000 MG/100 ML VIAL IV ONE (14:45)
[2020-02-26] MEDS ORDERED: Midazolam HCl 2 mg/2 ml Vial ONE (15:10)
[2020-02-26] MEDS ORDERED: Iopamidol 370 76% 50 ML VIAL FS ONE (16:19)
[2020-02-26] MEDS ORDERED: Lidocaine 1% (PF) 30 ML VIAL ONE (17:01)
[2020-02-26] MEDS: Tamsulosin HCl 0.4 MG CAP PO SCH (17:48)
[2020-02-26] MEDS: Carvedilol 6.25 MG TAB PO SCH (17:48)
[2020-02-26] MEDS ORDERED: Acetaminophen/Codeine 30-300mg Tablet PO PRN ×2 (18:15)
--- NOTE | 2020-02-26 18:32 | RAD ---
PORTABLE CHEST: 02/26/20 HISTORY: Pacemaker placement. COMPARISON: 02/23/20 FINDINGS/IMPRESSION: A dual lead pacemaker device is in place. Leads appear adequately positioned. Mild cardiomegaly. Calcified paratracheal lymph on the right. The lungs remain clear. No acute interv al change. POS: AGW
[2020-02-26] MEDS ORDERED: Sodium Chloride 0.9% 500 ML IV PRN (19:19)
[2020-02-26] MEDS: Cephalexin 250 MG CAP PO SCH (21:02)
[2020-02-26] MEDS: Atorvastatin Calcium 40 MG TAB PO SCH (21:02)
[2020-02-27 04:29] LABS: Band 1 % (5-11); Eosinophils 2 % (0-10); Hemoglobin 9.3 g/dL (14.0-18.0); Lymphocytes 31 % (21-51); MDiff Complete? YES; Mean Corpuscular HGB CONC 32.7 g/dL (32.0-36.0); Mean Corpuscular Volume 94.8 fL (78.0-98.0); Mean Platelet Volume 9.5 fL (7.4-10.4); Monocytes 8 % (0-10); Neutrophil 58 % (42-75); Platelet Count 123 thou/uL (130-400); Platelet Morphology Comment Appears Adequate; RBC Distribution Width 12.7 % (11.5-14.5); Red Blood Cell (RBC) Count 2.99 mill/uL (4.70-6.10); White Blood Cell (WBC) Count 3.9 thou/uL (4.8-10.8)
[2020-02-27 04:36] LABS: Anion Gap 8 mmol/L (10-20); BUN (Urea Nitrogen) 27 mg/dL (8.4-25.7); Calc. Creatinine Clearance 36 mL/min (70-130); Calcium 7.9 mg/dL (7.8-10.44); Carbon Dioxide 21 mmol/L (23-31); Chloride 111 mmol/L (98-107); Estimated GFR-MDRD 36; Glucose 81 mg/dL (83-110); Potassium 4.3 mmol/L (3.5-5.1); Sodium 136 mmol/L (136-145)
[2020-02-27] MEDS: Carvedilol 6.25 MG TAB PO SCH ×2 (08:07→17:08)
[2020-02-27] MEDS: Cephalexin 250 MG CAP PO SCH ×3 (08:07→17:08)
[2020-02-27] MEDS: Aspirin 81 mg Enteric Coated Tablet PO SCH (08:08)
[2020-02-27] MEDS: Amlodipine 10 MG TAB PO SCH (08:08)
[2020-02-27] MEDS: Isosorbide Dinitrate 20 MG TAB PO SCH ×2 (08:08→15:47)
[2020-02-27] MEDS: Clopidogrel Bisulfate 75 MG TAB PO SCH (08:08)
[2020-02-27] MEDS: hydrALAZINE 25 MG TAB PO SCH (08:08)
[2020-02-27] MEDS: Enoxaparin Sodium 30 MG/0.3 ML SYRINGE SC SCH (08:08)
[2020-02-27] MEDS: IMBRUVICA 420 MG PO SCH (08:09)
--- NOTE | 2020-02-27 11:39 | PDOC.EP ---
- Subjective Date: 02/27/20 Time: 11:38 Interval History: s/p biV PPM implant 02/26/2020. Feels well voicing no concerns or complaints. eager to go home - Review of Systems Constitutional: denies: chills, fever, weakness Respiratory: denies: cough, pleuritic pain, shortness of breath, wheezing Cardiology: denies: chest pain, heart racing, light headedness, palpitations, passing out Gastrointestinal: denies: abdominal pain, nausea, vomitting Musculoskeletal: denies: unstable gait, falls, neck pain - Objective Allergies/Adverse Reactions: Allergies Allergy/AdvReac Type Severity Reaction Status Date / Time No Known Allergies Allergy Verified 02/23/20 19:57 Current Medications Acetaminophen (Tylenol) 650 mg PO Q4H PRN PRN Reason: Headache/Fever/Mild Pain (1-3) Acetaminophen/Codeine Phosphate (Tylenol #3) 1 tab PO Q4H PRN PRN Reason: Mild Pain (1-3) Acetaminophen/Codeine Phosphate (Tylenol #3) 2 tab PO Q4H PRN PRN Reason: Moderate Pain (4-6) Amlodipine Besylate (Norvasc) 10 mg PO DAILY [facility] Last Admin: 02/27/20 08:08 Dose: 10 mg Aspirin (Ecotrin) 81 mg PO DAILY [facility] Last Admin: 02/27/20 08:08 Dose: 81 mg Atorvastatin Calcium (Lipitor) 80 mg PO HS [facility] Last Admin: 02/26/20 21:02 Dose: 80 mg Carvedilol (Coreg) 12.5 mg PO BID-[facility] Last Admin: 02/27/20 08:07 Dose: 12.5 mg Cephalexin (Keflex) 500 mg PO QID [facility] Stop: 03/04/20 17:01 Last Admin: 02/27/20 08:07 Dose: 500 mg Clopidogrel Bisulfate (Plavix) 75 mg PO DAILY [facility] Last Admin: 02/27/20 08:08 Dose: 75 mg Dextrose/Water (Dextrose 50%) 25 gm SLOW IVP PRN PRN PRN Reason: Hypoglycemia Enoxaparin Sodium (Lovenox) 30 mg SC 0900 [facility] Last Admin: 02/27/20 08:08 Dose: 30 mg Glucagon (Glucagon) 1 mg IM PRN PRN PRN Reason: Hypoglycemia Hydralazine HCl (Apresoline) 50 mg PO TID [facility] Dextrose/Water (D5w) 1,000 mls @ 0 mls/hr IV .Q0M PRN PRN Reason: Hypoglycemia Sodium Chloride (Normal Saline 0.9%) 1,000 mls @ 75 mls/hr IV .[id number] [facility] Last Admin: 02/26/20 23:59 Dose: 1,000 mls Sodium Chloride (Normal Saline 0.9%) 500 mls @ 999 mls/hr IV ONE PRN PRN Reason: SBP <90 Stop: 02/27/20 19:20 Insulin Human Lispro (Humalog) 0 units SC .MODERATE SLIDING SC PRN PRN Reason: Moderate Correctional Scale Isosorbide Dinitrate (Isordil) 20 mg PO TID [facility] Last Admin: 02/27/20 08:08 Dose: 20 mg Ondansetron HCl (Zofran) 4 mg IVP Q6H PRN PRN Reason: Nausea/Vomiting Imbruvica 420 Mg Tab 0 each PO DAILY [facility] Last Admin: 02/27/20 08:09 Dose: 1 each Sodium Chloride (Flush - Normal Saline) 10 ml IVF Q12HR [facility] Last Admin: 02/27/20 08:08 Dose: 10 ml Sodium Chloride (Flush - Normal Saline) 10 ml IVF PRN PRN PRN Reason: Saline Flush Tamsulosin HCl (Flomax) 0.4 mg PO 1700 [facility] Last Admin: 02/26/20 17:48 Dose: 0.4 mg Tramadol HCl (Ultram) 50 mg PO Q12H PRN PRN Reason: Moderate Pain (4-6) Vital Signs & Weight: Vital Signs Temp Pulse Resp BP Pulse Ox 02/27/20 08:05 98.6 F 69 18 175/76 H 95 02/27/20 04:00 98.5 F 60 16 135/63 98 02/26/20 23:50 98.0 F 60 16 138/60 95 Weight 207 lb 10.807 oz I/O: I/O 02/26/20 02/27/20 02/28/20 06:59 06:59 06:59 Intake Total 4150 877.5 Output Total 2150 675 Balance 2000 202.5 - Physical Exam General: alert & oriented x3, appears well, no apparent distress, speech clear, affect appropriate HEENT: mucus membranes moist, normocephaly Neck: supple neck, midline trachea, no JVD/HJR, no lymphadenopathy Cardiology: regular rate and rhythm, no murmur, PMI nondisplaced Lungs: clear to auscultation, normal breath sounds, no wheeze, rales, rhonchi Neurology: cranial nerve 2-12 intact, grossly intact, no lateralizing findings Abdomen: unremarkable, active bowel sounds, no pulsations/bruits Skin: device site stable w/o swelling (minor swelling present), bruising, left sided device, swelling. negative: drainage, erosion, hematoma - Labs Result Diagrams: 02/27/20 03:54 02/27/20 03:54 - EKG Interpretation EKG shows: Sinus rhythm - Device Device: biventricular, pacemaker Device Result: [employer]tronic - Assessment/Plan Assessment/Plan: 1. paroxismal complete AV block 2. advanced conduction disease 3. S/P BiV pacemaker 02/26/20, medtronic - device check 02/26 shows normal lead function - CXR post implant stable/no pneumothorax OK for DC by EP. Continue Keflex as prescribed x7 days post implant. [facility] office wound/device check in 2 weeks will be arranged.
[2020-02-27] MEDS: Sodium Chloride 0.9% 1,000 ML IV SCH (13:16)
[2020-02-27] MEDS ORDERED: hydrALAZINE 25 MG TAB PO SCH (15:00)
[2020-02-27 15:45] VITALS: BP 165/81; TEMP 98.7
[2020-02-27] MEDS: Tamsulosin HCl 0.4 MG CAP PO SCH (17:08)
--- NOTE | 2020-02-28 03:08 | DIS ---
DATE OF ADMISSION: 02/23/2020 DATE OF DISCHARGE: 02/27/2020 DISCHARGE DIAGNOSES: 1. Complete atrioventricular block. 2. Symptomatic bradycardia. 3. Hypertension. 4. Hyperlipidemia. 5. History of cerebrovascular accident. 6. Diabetes mellitus type 2. DISCHARGE MEDICATIONS: 1. Keflex 500 mg orally 4 times a day for 7 days. 2. Aspirin 81 mg orally daily. 3. Atorvastatin 80 mg orally nightly. 4. Plavix 75 mg orally daily. 5. Hydralazine 75 mg orally twice daily. 6. Isordil 10 mg orally twice daily. 7. Flomax 0.4 mg orally nightly. 8. Tramadol 50 mg orally q.12 hours as needed for pain. 9. Carvedilol 12.5 mg orally twice daily. 10. Ibrutinib 420 mg orally daily. 11. Vascepa 2 g orally twice daily. 12. Procardia 90 mg orally daily. 13. Travoprost 2.5 mL ophthalmic drop daily. HISTORY OF PRESENT ILLNESS AND HOSPITAL COURSE: The patient is an 84-year-old gentleman with past medical history of hypertension, diabetes mellitus, hyperlipidemia, and CVA, who presented to the hospital with complaints of feeling tired and dizzy. He was found to be bradycardic by EMS and he was paced transcutaneously en route to the ER. In the ER, the patient was able to maintain low heart rates without symptoms after stopping the pacing. His carvedilol was discontinued. He was admitted to the hospital and evaluated by Cardiology Service. The patient underwent placement of biventricular pacemaker. The device was interrogated on the day after insertion and was found to be functioning appropriately. At this time, the patient will be discharged and follow with Cardiology in 1 to 2 weeks. Job ID: [id number]
== END 2020-02-27 17:00 | disposition home or self-care (01) | DRG 243 ==
LOC: ERS 14:20 → 2NO 16:15 → ERS 18:37
PROVIDERS: ADMIT Internal Medicine; ATTEND Internal Medicine
PROC: 0JH607Z Insertion of Cardiac Resynchronization Pacemaker Pulse Generator into Chest Subcutaneous Tissue and Fascia, Open Approach (ICD-10-PCS; principal; 2020-02-26)
PROC: 02H63JZ Insertion of Pacemaker Lead into Right Atrium, Percutaneous Approach (ICD-10-PCS; 2020-02-26)
PROC: 02HK3JZ Insertion of Pacemaker Lead into Right Ventricle, Percutaneous Approach (ICD-10-PCS; 2020-02-26)
PROC: 02HL3JZ Insertion of Pacemaker Lead into Left Ventricle, Percutaneous Approach (ICD-10-PCS; 2020-02-26)
DX: I44.2 Atrioventricular block, complete (principal); I13.0 Hypertensive heart and chronic kidney disease with heart failure and stage 1 through stage 4 chronic kidney disease, or unspecified chronic kidney disease; I50.32 Chronic diastolic (congestive) heart failure; I69.351 Hemiplegia and hemiparesis following cerebral infarction affecting right dominant side; R00.1 Bradycardia, unspecified; E11.22 Type 2 diabetes mellitus with diabetic chronic kidney disease; M19.90 Unspecified osteoarthritis, unspecified site; E78.5 Hyperlipidemia, unspecified; I45.3 Trifascicular block; N18.9 Chronic kidney disease, unspecified; I34.0 Nonrheumatic mitral (valve) insufficiency; I47.2 Ventricular tachycardia; Z85.72 Personal history of non-Hodgkin lymphomas; Z92.21 Personal history of antineoplastic chemotherapy; Z87.891 Personal history of nicotine dependence; Z88.5 Allergy status to narcotic agent; Z79.899 Other long term (current) drug therapy; Z79.82 Long term (current) use of aspirin; Z79.02 Long term (current) use of antithrombotics/antiplatelets; I69.320 Aphasia following cerebral infarction
CPT/HCPCS: 33225; 33249; 36005; 36415; 36416; 71045; 75820; 76942; 80048; 80053; 82550; 82553; 83605; 83690; 83735; 84484; 85007; 85025; 85027; 93005; 93010; 93306; 94760; 99152; 99153; J0690; J1580; J1650; J2001; J2250; J2704; J3010; Q9967

== ENCOUNTER 2020-03-19 14:04 | Outpatient (CLI) | payer MEDICARE ==
--- NOTE | 2020-03-19 14:54 | ULT ---
EXAM: US Venous Doppler [facility] PROVIDED CLINICAL HISTORY: Left shoulder pain and edema. Patient is post cardiac pacemaking device placement left chest 6 weeks ago. COMPARISON: None FINDINGS: Grayscale, color-flow, Doppler evaluation, and spectral analysis of the left upper extremity venous s tructures is performed with 2-D imaging. Normal lumen compressibility and flow is seen in the visualized left internal jugular, axillary, brac hial, radial, and ulnar veins. Flow is demonstrated in the visualized portions of the left subclavian vein. Normal luminal compressibility and flow is present in the visualized left upper extremity basilic and cephalic veins. Mild subcutaneous edema seen in the left arm. IMPRESSION: 1. No evidence of a DVT involving the visualized deep venous structures left upper extremity. 2. Subcutaneous edema at the level of the left arm.
== END 2020-03-19 14:05 | disposition home or self-care (01) ==
LOC: SCSULT 14:04
PROVIDERS: ATTEND Internal Medicine Cardiovascular Disease
DX: R60.0 Localized edema (principal); M25.512 Pain in left shoulder

== ENCOUNTER 2020-05-28 16:17 | Outpatient (CLI) | payer MEDICARE ==
--- NOTE | 2020-05-28 16:37 | RAD ---
EXAM: LUMBAR SPINE TWO VIEWS: 05/28/20 HISTORY: Low back pain for one month. FINDINGS: Significant multilevel disc osteophytosis and facet arthrosis. Free internal fixation screws stabiliz e the right femoral neck. No evidence for acute fracture or dislocation. IMPRESSION: Lumbar spondylosis. POS: RRE
== END 2020-05-28 16:18 | disposition home or self-care (01) ==
LOC: BICRAD 16:17
PROVIDERS: ATTEND Physician Assistant
DX: M54.5 Low back pain (principal); M47.816 Spondylosis without myelopathy or radiculopathy, lumbar region; N18.30 Chronic kidney disease, stage 3 unspecified; R10.9 Unspecified abdominal pain; R80.9 Proteinuria, unspecified
CPT/HCPCS: 36415; 72100; 80048; 81015; 82570; 84156; 87086

== ENCOUNTER 2020-05-29 10:34 | Outpatient (CLI) | payer MEDICARE ==
--- NOTE | 2020-05-29 11:24 | ULT ---
Exam: Left upper extremity venous ultrasound with Doppler HISTORY: Edema and swelling COMPARISON: 03/19/2020 TECHNIQUE: Grayscale, color flow, Doppler imaging and spectral waveform analysis of the left upper ex tremity venous system FINDINGS: Compressibility and flow in the internal jugular vein. Patent subclavian vein Compressibility and flow in the axillary vein, brachial vein, cephalic vein, basilic vein, radial vei n and ulnar vein. IMPRESSION: No evidence of thrombus in the left upper extremity deep venous system.
== END 2020-05-29 10:35 | disposition home or self-care (01) ==
LOC: BICULT 10:34
PROVIDERS: ATTEND Physician Assistant
DX: R60.0 Localized edema (principal)

== ENCOUNTER 2021-01-26 19:00 | Outpatient (CLI) | payer MEDICARE | END 2021-01-26 19:01 | disposition home or self-care (01) | LOC: SLEEPLAB 19:00 | PROVIDERS: ATTEND Family Medicine | DX: G47.33 Obstructive sleep apnea (adult) (pediatric) (principal); R53.83 Other fatigue; R09.89 Other specified symptoms and signs involving the circulatory and respiratory systems; G31.84 Mild cognitive impairment of uncertain or unknown etiology; R51.9 Headache, unspecified; R06.83 Snoring; R35.1 Nocturia; I11.0 Hypertensive heart disease with heart failure; I50.9 Heart failure, unspecified; J44.9 Chronic obstructive pulmonary disease, unspecified; I25.10 Atherosclerotic heart disease of native coronary artery without angina pectoris; E11.9 Type 2 diabetes mellitus without complications; I63.9 Cerebral infarction, unspecified; E66.9 Obesity, unspecified; Z68.29 Body mass index [BMI] 29.0-29.9, adult | CPT/HCPCS: 95810 ==

== ENCOUNTER 2021-02-09 11:41 | Inpatient (IN) | payer MEDICARE ==
[2021-02-09 12:44] LABS: #Eosinphils 0.1 thou/uL (0.0-0.7); #Lymphocytes 0.9 thou/uL (1.20-3.40); #Monocytes 0.3 thou/uL (0.11-0.59); #Neutrophils 4.1 thou/uL (1.40-6.50); %Basophils 0.2 % (0.0-1.0); %Eosinophils 1.5 % (0.0-10.0); %Lymphocytes 16.4 % (21.0-51.0); %Monocytes 4.9 % (0.0-10.0); Hemoglobin 9.5 g/dL (14.0-18.0); Mean Corpuscular HGB CONC 33.4 g/dL (32.0-36.0); Mean Corpuscular Hemoglobin 32.5 pg (27.0-31.0); Mean Corpuscular Volume 97.2 fL (78.0-98.0); Mean Platelet Volume 8.3 fL (7.4-10.4); Platelet Count 144 thou/uL (130-400); RBC Distribution Width 12.7 % (11.5-14.5); Red Blood Cell (RBC) Count 2.91 mill/uL (4.70-6.10); White Blood Cell (WBC) Count 5.3 thou/uL (4.8-10.8)
[2021-02-09 13:09] LABS: ALT (SGPT) 11 U/L (8-55); AST (SGOT) 19 U/L (5-34); Albumin 3.7 g/dL (3.4-4.8); Alkaline Phosphatase 72 U/L (40-110); Anion Gap 16 mmol/L (10-20); BUN (Urea Nitrogen) 59 mg/dL (8.4-25.7); Bilirubin, Total 0.7 mg/dL (0.2-1.2); Calc. Creatinine Clearance 0 mL/min (70-130); Calcium 9.1 mg/dL (7.8-10.44); Carbon Dioxide 20 mmol/L (23-31); Chloride 105 mmol/L (98-107); Globulin 2.7 g/dL (2.4-3.5); Glucose 102 mg/dL (83-110); Protein, Total 6.4 g/dL (5.8-8.1); Sodium 137 mmol/L (136-145)
[2021-02-09 13:28] LABS: CKMB 2.9 ng/mL (0-6.6)
[2021-02-09] MEDS ORDERED: Furosemide 40 MG/4 ML VIAL ONE (15:03)
[2021-02-09] MEDS ORDERED: Aspirin Chewable 81 MG TAB ONE (15:03)
[2021-02-09] MEDS ORDERED: Dextrose 50% Abboject 50 ML SYRINGE SLOW IVP PRN ×2 (17:10→19:46)
[2021-02-09] MEDS ORDERED: Dextrose 5% in Water 1,000 ML IV PRN ×2 (17:10→19:46)
[2021-02-09] MEDS ORDERED: HumaLOG 300 UNITS/3 ML VIAL SC PRN ×2 (17:10→19:46)
[2021-02-09 17:11] LABS: Troponin I 0.262 ng/mL (< 0.028)
[2021-02-09 18:35] VITALS: BMI 30.4
[2021-02-09] MEDS ORDERED: Ondansetron PF 4 MG/2 ML Vial IVP PRN (18:45)
[2021-02-09] MEDS ORDERED: Acetaminophen 325 MG TAB PO PRN (18:45)
[2021-02-09] MEDS ORDERED: Ondansetron ODT 4 MG TAB SL PRN (18:45)
[2021-02-09 19:14] LABS: Troponin I 0.259 ng/mL (< 0.028)
[2021-02-09 20:08] LABS: SARS-CoV-2 NAA Rapid Test Not Detected (NotDetected)
[2021-02-09 21:22] LABS: Bilirubin Negative (Negative); Blood, Urine Small (Negative); Glucose, Urine (Dipstick) Negative (Negative); Ketone, Urine Negative (Negative); Leukocyte Negative (Negative); Nitrite Negative (Negative); Protein, Urine (Dipstick) 100 mg/dL (Neg-Trace); Specific Gravity, Urine 1.015 (1.005-1.030); Urobilinogen 0.2 mg/dL (Less than 2); pH, Urine 5.5 (5.0-9.0)
[2021-02-09] MEDS: Heparin 5,000 UNITS/ML VIAL SC SCH (21:22)
[2021-02-09 21:34] LABS: Clarity Clear (Clear)
[2021-02-09 21:35] LABS: WBC/HPF 0-3 HPF (0-3)
[2021-02-09 21:36] LABS: Bacteria/HPF None Seen HPF (None Seen); Squamous Epithelial None Seen HPF (0-3)
[2021-02-09] MEDS ORDERED: NIFEdipine XL 30 MG TAB PO SCH (22:00)
[2021-02-09] MEDS ORDERED: Carvedilol 25 MG TAB PO SCH (22:00)
[2021-02-09] MEDS ORDERED: Isosorbide Dinitrate 5 MG TAB PO SCH (22:00)
[2021-02-10] MEDS ORDERED: hydrALAZINE 20 MG/ML VIAL SLOW IVP PRN (00:12)
[2021-02-10 05:02] LABS: #Eosinphils 0.1 thou/uL (0.0-0.7); #Monocytes 0.3 thou/uL (0.11-0.59); #Neutrophils 3.9 thou/uL (1.40-6.50); %Basophils 0.5 % (0.0-1.0); %Eosinophils 2.6 % (0.0-10.0); %Lymphocytes 17.6 % (21.0-51.0); %Monocytes 6.1 % (0.0-10.0); %Neutrophils 73.2 % (42.0-75.0); Hemoglobin 8.9 g/dL (14.0-18.0); Mean Corpuscular HGB CONC 33.7 g/dL (32.0-36.0); Mean Corpuscular Hemoglobin 32.5 pg (27.0-31.0); Mean Corpuscular Volume 96.5 fL (78.0-98.0); Mean Platelet Volume 8.8 fL (7.4-10.4); Platelet Count 141 thou/uL (130-400); RBC Distribution Width 12.8 % (11.5-14.5); Red Blood Cell (RBC) Count 2.74 mill/uL (4.70-6.10); White Blood Cell (WBC) Count 5.4 thou/uL (4.8-10.8)
[2021-02-10 05:31] LABS: ALT (SGPT) 8 U/L (8-55); AST (SGOT) 19 U/L (5-34); Albumin 3.4 g/dL (3.4-4.8); Alkaline Phosphatase 67 U/L (40-110); Anion Gap 18 mmol/L (10-20); BUN (Urea Nitrogen) 60 mg/dL (8.4-25.7); Bilirubin, Total 0.6 mg/dL (0.2-1.2); Calc. Creatinine Clearance 20 mL/min (70-130); Calcium 8.9 mg/dL (7.8-10.44); Carbon Dioxide 19 mmol/L (23-31); Chloride 104 mmol/L (98-107); Globulin 2.4 g/dL (2.4-3.5); Glucose 77 mg/dL (83-110); Potassium 3.8 mmol/L (3.5-5.1); Protein, Total 5.8 g/dL (5.8-8.1); Sodium 137 mmol/L (136-145)
[2021-02-10] MEDS ORDERED: Furosemide 40 MG/4 ML VIAL SLOW IVP SCH (06:00)
[2021-02-10 08:14] LABS: Hemoglobin A1c 4.6 % (4.0-6.0)
[2021-02-10] MEDS ORDERED: Sodium Chloride 0.9% 10 ML ONE (08:37)
[2021-02-10] MEDS: Aspirin Chewable 81 MG TAB PO SCH (09:00)
[2021-02-10] MEDS ORDERED: Non-Formulary Item 1 EACH (Hydralazine Hcl [Hydralazine Hcl] 50 MG Tablet) PO SCH (09:00)
[2021-02-10] MEDS ORDERED: Aspirin 81 mg Enteric Coated Tablet PO SCH (09:00)
[2021-02-10] MEDS: Carvedilol 25 MG TAB PO SCH ×3 (09:00→20:17)
[2021-02-10] MEDS: Heparin 5,000 UNITS/ML VIAL SC SCH ×3 (09:04→20:17)
[2021-02-10] MEDS: Clopidogrel Bisulfate 75 MG TAB PO SCH (09:05)
[2021-02-10] MEDS: hydrALAZINE 25 MG TAB PO SCH ×5 (12:17→20:19)
[2021-02-10] MEDS: Icosapent Ethyl 1 GM CAPSULE PO SCH ×2 (12:19→20:15)
[2021-02-10] MEDS: Isosorbide Dinitrate 5 MG TAB PO SCH ×2 (12:20→20:16)
[2021-02-10] MEDS: Furosemide 40 MG/4 ML VIAL SLOW IVP SCH (15:14)
[2021-02-10] MEDS: Isosorbide Dinitrate 20 MG TAB PO SCH ×2 (15:30→21:05)
[2021-02-10] MEDS ORDERED: hydrALAZINE 25 MG TAB PO PRN (17:00)
[2021-02-10] MEDS: Tamsulosin HCl 0.4 MG CAP PO SCH (18:15)
[2021-02-10] MEDS: Atorvastatin Calcium 40 MG TAB PO SCH (20:16)
[2021-02-10] MEDS ORDERED: NIFEdipine XL 30 MG TAB PO SCH (21:00)
[2021-02-11 05:22] LABS: Anion Gap 15 mmol/L (10-20); BUN (Urea Nitrogen) 66 mg/dL (8.4-25.7); Calc. Creatinine Clearance 19 mL/min (70-130); Calcium 8.6 mg/dL (7.8-10.44); Carbon Dioxide 21 mmol/L (23-31); Chloride 103 mmol/L (98-107); Glucose 81 mg/dL (83-110); Potassium 3.5 mmol/L (3.5-5.1); Sodium 135 mmol/L (136-145)
[2021-02-11] MEDS: Furosemide 40 MG/4 ML VIAL SLOW IVP SCH ×2 (06:16→13:13)
[2021-02-11] MEDS: Isosorbide Dinitrate 20 MG TAB PO SCH ×4 (08:50→20:48)
[2021-02-11] MEDS: Clopidogrel Bisulfate 75 MG TAB PO SCH (08:50)
[2021-02-11] MEDS: hydrALAZINE 25 MG TAB PO SCH ×5 (08:50→20:39)
[2021-02-11] MEDS: Aspirin Chewable 81 MG TAB PO SCH (08:50)
[2021-02-11] MEDS: Carvedilol 25 MG TAB PO SCH ×3 (08:51→20:39)
[2021-02-11] MEDS: Fluticasone Propionate Nasal Spray 16 gm Bottle NASAL SCH (08:52)
[2021-02-11] MEDS: Heparin 5,000 UNITS/ML VIAL SC SCH ×3 (08:52→20:40)
[2021-02-11] MEDS ORDERED: Isosorbide Dinitrate 5 MG TAB PO SCH (09:15)
[2021-02-11] MEDS: Icosapent Ethyl 1 GM CAPSULE PO SCH ×2 (13:12→20:38)
[2021-02-11] MEDS: Isosorbide Dinitrate 5 MG TAB PO SCH ×2 (13:13→20:40)
[2021-02-11] MEDS: Tamsulosin HCl 0.4 MG CAP PO SCH (18:10)
[2021-02-11] MEDS ORDERED: Potassium Chloride 10 MEQ TAB PO SCH (18:30)
[2021-02-11] MEDS: Milrinone Lactate/D5W 20 MG in Premix Bag 1 BAG IV SCH (20:03)
[2021-02-11] MEDS: Atorvastatin Calcium 40 MG TAB PO SCH (20:39)
[2021-02-12 08:00] LABS: #Eosinphils 0.1 thou/uL (0.0-0.7); #Lymphocytes 0.9 thou/uL (1.20-3.40); #Monocytes 0.2 thou/uL (0.11-0.59); #Neutrophils 2.1 thou/uL (1.40-6.50); %Basophils 0.3 % (0.0-1.0); %Eosinophils 2.6 % (0.0-10.0); %Lymphocytes 28.4 % (21.0-51.0); %Monocytes 6.7 % (0.0-10.0); Hemoglobin 7.5 g/dL (14.0-18.0); Mean Corpuscular HGB CONC 33.7 g/dL (32.0-36.0); Mean Corpuscular Hemoglobin 32.7 pg (27.0-31.0); Mean Corpuscular Volume 96.8 fL (78.0-98.0); Mean Platelet Volume 8.2 fL (7.4-10.4); Platelet Count 132 thou/uL (130-400); RBC Distribution Width 12.8 % (11.5-14.5); Red Blood Cell (RBC) Count 2.31 mill/uL (4.70-6.10); White Blood Cell (WBC) Count 3.3 thou/uL (4.8-10.8)
[2021-02-12 08:08] LABS: Anion Gap 17 mmol/L (10-20); BUN (Urea Nitrogen) 70 mg/dL (8.4-25.7); Calc. Creatinine Clearance 17 mL/min (70-130); Calcium 8.4 mg/dL (7.8-10.44); Carbon Dioxide 19 mmol/L (23-31); Chloride 105 mmol/L (98-107); Glucose 95 mg/dL (83-110); Potassium 3.7 mmol/L (3.5-5.1); Sodium 137 mmol/L (136-145)
[2021-02-12 08:12] LABS: ALT (SGPT) 8 U/L (8-55); AST (SGOT) 18 U/L (5-34); Albumin 2.9 g/dL (3.4-4.8); Alkaline Phosphatase 58 U/L (40-110); Anion Gap 17 mmol/L (10-20); BUN (Urea Nitrogen) 70 mg/dL (8.4-25.7); Bilirubin, Total 0.5 mg/dL (0.2-1.2); Calc. Creatinine Clearance 17 mL/min (70-130); Calcium 8.5 mg/dL (7.8-10.44); Carbon Dioxide 20 mmol/L (23-31); Chloride 104 mmol/L (98-107); Globulin 2.2 g/dL (2.4-3.5); Glucose 97 mg/dL (83-110); Magnesium 1.7 mg/dL (1.6-2.6); Potassium 3.6 mmol/L (3.5-5.1); Protein, Total 5.1 g/dL (5.8-8.1); Sodium 137 mmol/L (136-145)
[2021-02-12] MEDS: Aspirin Chewable 81 MG TAB PO SCH (08:33)
[2021-02-12] MEDS: Heparin 5,000 UNITS/ML VIAL SC SCH ×3 (08:33→20:37)
[2021-02-12] MEDS: Clopidogrel Bisulfate 75 MG TAB PO SCH (08:33)
[2021-02-12] MEDS: Carvedilol 25 MG TAB PO SCH ×3 (08:33→20:37)
[2021-02-12] MEDS: Milrinone Lactate/D5W 20 MG in Premix Bag 1 BAG IV SCH ×2 (08:40→20:36)
[2021-02-12] MEDS: Fluticasone Propionate Nasal Spray 16 gm Bottle NASAL SCH (09:19)
[2021-02-12] MEDS: hydrALAZINE 25 MG TAB PO SCH ×3 (09:20→20:45)
[2021-02-12] MEDS: Isosorbide Dinitrate 20 MG TAB PO SCH ×3 (09:20→20:45)
[2021-02-12 09:22] LABS: #Eosinphils 0.1 thou/uL (0.0-0.7); #Lymphocytes 1.1 thou/uL (1.20-3.40); #Monocytes 0.3 thou/uL (0.11-0.59); %Basophils 0.5 % (0.0-1.0); %Eosinophils 2.5 % (0.0-10.0); %Lymphocytes 30.5 % (21.0-51.0); %Monocytes 8.5 % (0.0-10.0); %Neutrophils 57.9 % (42.0-75.0); Mean Corpuscular HGB CONC 34.2 g/dL (32.0-36.0); Mean Corpuscular Hemoglobin 33.2 pg (27.0-31.0); Mean Corpuscular Volume 97.1 fL (78.0-98.0); Platelet Count 133 thou/uL (130-400); RBC Distribution Width 12.6 % (11.5-14.5); White Blood Cell (WBC) Count 3.4 thou/uL (4.8-10.8)
[2021-02-12] MEDS ORDERED: Potassium Chloride 10 MEQ TAB PO SCH (10:30)
[2021-02-12] MEDS: Icosapent Ethyl 1 GM CAPSULE PO SCH ×2 (11:01→20:48)
[2021-02-12] MEDS: Isosorbide Dinitrate 5 MG TAB PO SCH ×2 (11:02→20:37)
[2021-02-12] MEDS: Tamsulosin HCl 0.4 MG CAP PO SCH (16:57)
[2021-02-12] MEDS: Atorvastatin Calcium 40 MG TAB PO SCH (20:37)
[2021-02-13 05:17] LABS: #Eosinphils 0.1 thou/uL (0.0-0.7); #Lymphocytes 1.4 thou/uL (1.20-3.40); #Monocytes 0.2 thou/uL (0.11-0.59); #Neutrophils 2.2 thou/uL (1.40-6.50); %Basophils 0.5 % (0.0-1.0); %Lymphocytes 35.9 % (21.0-51.0); %Monocytes 5.3 % (0.0-10.0); %Neutrophils 55.3 % (42.0-75.0); Hemoglobin 8.3 g/dL (14.0-18.0); Mean Corpuscular HGB CONC 33.6 g/dL (32.0-36.0); Mean Corpuscular Hemoglobin 31.9 pg (27.0-31.0); Platelet Count 134 thou/uL (130-400); White Blood Cell (WBC) Count 3.9 thou/uL (4.8-10.8)
[2021-02-13 05:37] LABS: Anion Gap 14 mmol/L (10-20); BUN (Urea Nitrogen) 74 mg/dL (8.4-25.7); Calc. Creatinine Clearance 16 mL/min (70-130); Calcium 8.3 mg/dL (7.8-10.44); Carbon Dioxide 21 mmol/L (23-31); Chloride 103 mmol/L (98-107); Glucose 104 mg/dL (83-110); Magnesium 1.7 mg/dL (1.6-2.6); Potassium 3.4 mmol/L (3.5-5.1); Sodium 135 mmol/L (136-145)
[2021-02-13] MEDS: Carvedilol 25 MG TAB PO SCH ×3 (09:41→20:58)
[2021-02-13] MEDS: Clopidogrel Bisulfate 75 MG TAB PO SCH (09:41)
[2021-02-13] MEDS: Isosorbide Dinitrate 20 MG TAB PO SCH ×3 (09:41→20:58)
[2021-02-13] MEDS: Aspirin Chewable 81 MG TAB PO SCH (09:41)
[2021-02-13] MEDS: hydrALAZINE 25 MG TAB PO SCH ×3 (09:41→21:00)
[2021-02-13] MEDS: Heparin 5,000 UNITS/ML VIAL SC SCH ×3 (09:42→20:59)
[2021-02-13] MEDS: Milrinone Lactate/D5W 20 MG in Premix Bag 1 BAG IV SCH (09:58)
[2021-02-13] MEDS: Fluticasone Propionate Nasal Spray 16 gm Bottle NASAL SCH (10:57)
[2021-02-13] MEDS ORDERED: Magnesium 2 GM/50 ML 2 GM in Premix Bag 1 BAG IVPB SCH (11:15)
[2021-02-13] MEDS ORDERED: Potassium Chloride 20 MEQ TAB PO SCH (11:15)
[2021-02-13] MEDS: Isosorbide Dinitrate 5 MG TAB PO SCH (12:09)
[2021-02-13] MEDS: Icosapent Ethyl 1 GM CAPSULE PO SCH ×2 (12:23→20:59)
[2021-02-13] MEDS: Tamsulosin HCl 0.4 MG CAP PO SCH (17:02)
[2021-02-13] MEDS: Atorvastatin Calcium 40 MG TAB PO SCH (20:58)
[2021-02-14] MEDS: Milrinone Lactate/D5W 20 MG in Premix Bag 1 BAG IV SCH ×2 (02:08→16:39)
[2021-02-14 04:48] LABS: #Eosinphils 0.1 thou/uL (0.0-0.7); #Lymphocytes 1.5 thou/uL (1.20-3.40); #Monocytes 0.2 thou/uL (0.11-0.59); #Neutrophils 2.2 thou/uL (1.40-6.50); %Basophils 0.6 % (0.0-1.0); %Eosinophils 2.7 % (0.0-10.0); %Lymphocytes 36.4 % (21.0-51.0); %Monocytes 5.9 % (0.0-10.0); %Neutrophils 54.4 % (42.0-75.0); Hemoglobin 8.5 g/dL (14.0-18.0); Mean Corpuscular HGB CONC 33.2 g/dL (32.0-36.0); Mean Corpuscular Hemoglobin 31.4 pg (27.0-31.0); Mean Corpuscular Volume 94.6 fL (78.0-98.0); Mean Platelet Volume 8.6 fL (7.4-10.4); Platelet Count 137 thou/uL (130-400); RBC Distribution Width 13.7 % (11.5-14.5)
[2021-02-14 05:11] LABS: Anion Gap 15 mmol/L (10-20); BUN (Urea Nitrogen) 74 mg/dL (8.4-25.7); Calc. Creatinine Clearance 16 mL/min (70-130); Calcium 8.2 mg/dL (7.8-10.44); Carbon Dioxide 20 mmol/L (23-31); Chloride 102 mmol/L (98-107); Glucose 86 mg/dL (83-110); Magnesium 1.9 mg/dL (1.6-2.6); Potassium 3.6 mmol/L (3.5-5.1); Sodium 133 mmol/L (136-145)
[2021-02-14] MEDS ORDERED: Magnesium 2 GM/50 ML 2 GM in Premix Bag 1 BAG IVPB SCH (09:30)
[2021-02-14] MEDS ORDERED: Albumin 25% 25 GM/100 ML BOT IVPB SCH ×2 (09:30→09:45)
[2021-02-14] MEDS ORDERED: Potassium Chloride 10 MEQ TAB PO SCH (09:30)
[2021-02-14] MEDS ORDERED: Metolazone 5 MG TAB PO SCH (09:30)
[2021-02-14] MEDS: Heparin 5,000 UNITS/ML VIAL SC SCH ×3 (09:51→20:17)
[2021-02-14] MEDS: Aspirin Chewable 81 MG TAB PO SCH (09:51)
[2021-02-14] MEDS: Clopidogrel Bisulfate 75 MG TAB PO SCH (09:51)
[2021-02-14] MEDS: hydrALAZINE 25 MG TAB PO SCH ×3 (09:51→20:17)
[2021-02-14] MEDS: Carvedilol 25 MG TAB PO SCH ×3 (09:51→20:18)
[2021-02-14] MEDS: Isosorbide Dinitrate 20 MG TAB PO SCH ×3 (09:51→20:18)
[2021-02-14] MEDS ORDERED: Furosemide 100 MG/10 ML VIAL IVPB SCH (10:00)
[2021-02-14 10:38] LABS: Kappa Lambda Light Chain Ratio 40.38 (0.26-1.65); Kappa Light Chains 2616.4 mg/L (3.3-19.4); Lambda Light Chain 64.8 mg/L (5.7-26.3)
[2021-02-14] MEDS: Icosapent Ethyl 1 GM CAPSULE PO SCH ×2 (11:58→20:16)
[2021-02-14] MEDS: Tamsulosin HCl 0.4 MG CAP PO SCH (16:25)
[2021-02-14] MEDS: Atorvastatin Calcium 40 MG TAB PO SCH (20:18)
[2021-02-15] MEDS ORDERED: Melatonin 3 MG TAB PO SCH (01:00)
[2021-02-15 04:58] LABS: #Eosinphils 0.2 thou/uL (0.0-0.7); #Lymphocytes 1.3 thou/uL (1.20-3.40); #Monocytes 0.3 thou/uL (0.11-0.59); #Neutrophils 3.3 thou/uL (1.40-6.50); %Basophils 0.2 % (0.0-1.0); %Eosinophils 3.2 % (0.0-10.0); %Lymphocytes 25.1 % (21.0-51.0); %Monocytes 5.6 % (0.0-10.0); %Neutrophils 65.9 % (42.0-75.0); Hemoglobin 9.1 g/dL (14.0-18.0); Mean Corpuscular HGB CONC 34.4 g/dL (32.0-36.0); Mean Corpuscular Hemoglobin 32.2 pg (27.0-31.0); Mean Corpuscular Volume 93.5 fL (78.0-98.0); Mean Platelet Volume 7.8 fL (7.4-10.4); Platelet Count 134 thou/uL (130-400); RBC Distribution Width 13.5 % (11.5-14.5); Red Blood Cell (RBC) Count 2.83 mill/uL (4.70-6.10)
[2021-02-15 05:16] LABS: Anion Gap 17 mmol/L (10-20); BUN (Urea Nitrogen) 74 mg/dL (8.4-25.7); Calc. Creatinine Clearance 17 mL/min (70-130); Calcium 8.5 mg/dL (7.8-10.44); Carbon Dioxide 18 mmol/L (23-31); Chloride 99 mmol/L (98-107); Glucose 101 mg/dL (83-110); Magnesium 2.2 mg/dL (1.6-2.6); Potassium 3.8 mmol/L (3.5-5.1); Sodium 130 mmol/L (136-145)
[2021-02-15] MEDS: hydrALAZINE 25 MG TAB PO SCH ×2 (07:52→14:40)
[2021-02-15] MEDS: Isosorbide Dinitrate 20 MG TAB PO SCH ×2 (07:52→14:41)
[2021-02-15] MEDS: Aspirin Chewable 81 MG TAB PO SCH (07:52)
[2021-02-15] MEDS: Clopidogrel Bisulfate 75 MG TAB PO SCH (07:52)
[2021-02-15] MEDS: Carvedilol 25 MG TAB PO SCH ×2 (07:52→14:40)
[2021-02-15] MEDS: Heparin 5,000 UNITS/ML VIAL SC SCH ×2 (07:54→14:42)
[2021-02-15] MEDS ORDERED: Polyethylene Glycol 3350 17 GM Packet PO SCH (09:00)
[2021-02-15] MEDS: Milrinone Lactate/D5W 20 MG in Premix Bag 1 BAG IV SCH (09:23)
[2021-02-15] MEDS: Icosapent Ethyl 1 GM CAPSULE PO SCH (12:19)
[2021-02-15] MEDS ORDERED: Furosemide 100 MG in Sodium Chloride 0.9% 90 ML IVPB SCH (13:00)
[2021-02-15] MEDS ORDERED: Metolazone 5 MG TAB PO SCH (14:30)
[2021-02-15 15:10] VITALS: BP 103/55; TEMP 97.7
[2021-02-15] MEDS: Tamsulosin HCl 0.4 MG CAP PO SCH (16:25)
[2021-02-17 15:14] LABS: Kappa/Lambda Ratio 32.61 (1.03-31.76)
[2021-02-17 16:37] LABS: A/G Ratio 1.3 (0.7-1.7); Albumin 2.8 g/dL (2.9-4.4); Alpha 1 0.2 g/dL (0.0-0.4); Alpha 2 0.7 g/dL (0.4-1.0); Beta 0.5 g/dL (0.7-1.3); Gamma 0.7 g/dL (0.4-1.8); Globulin, Total 2.1 g/dL (2.2-3.9); M-Spike Not Observed g/dL (Not Observed)
== END 2021-02-15 18:02 | disposition short-term general hospital (02) | DRG 291 ==
LOC: ERS 11:41 → 2NO 15:15
PROVIDERS: ADMIT Family Medicine; ATTEND Hospitalist
DX: I13.2 Hypertensive heart and chronic kidney disease with heart failure and with stage 5 chronic kidney disease, or end stage renal disease (principal); I50.33 Acute on chronic diastolic (congestive) heart failure; N17.9 Acute kidney failure, unspecified; I69.351 Hemiplegia and hemiparesis following cerebral infarction affecting right dominant side; E85.9 Amyloidosis, unspecified; N18.5 Chronic kidney disease, stage 5; C91.10 Chronic lymphocytic leukemia of B-cell type not having achieved remission; I42.9 Cardiomyopathy, unspecified; E78.5 Hyperlipidemia, unspecified; Z66 Do not resuscitate; E11.22 Type 2 diabetes mellitus with diabetic chronic kidney disease; E78.00 Pure hypercholesterolemia, unspecified; M19.90 Unspecified osteoarthritis, unspecified site; D63.1 Anemia in chronic kidney disease; E87.6 Hypokalemia; E87.5 Hyperkalemia; Z79.82 Long term (current) use of aspirin; Z79.899 Other long term (current) drug therapy; Z95.0 Presence of cardiac pacemaker; Z88.5 Allergy status to narcotic agent; Z87.891 Personal history of nicotine dependence
CPT/HCPCS: 36415; 36416; 36430; 71045; 76770; 80048; 80053; 81001; 82553; 83036; 83735; 83880; 83883; 84165; 84443; 84484; 85025; 86141; 86850; 86900; 86901; 87633; 93005; 93306; 93798; 93970; 96374; J1644; J1940; J2260; J3475; J3490; P9016; P9047; U0002; U0005

== ENCOUNTER 2021-04-04 14:13 | Inpatient (IN) | payer MEDICARE ==
[2021-04-04 15:44] LABS: #Eosinphils 0.1 thou/uL (0.0-0.7); #Lymphocytes 1.6 thou/uL (1.20-3.40); #Monocytes 0.3 thou/uL (0.11-0.59); #Neutrophils 3.9 thou/uL (1.40-6.50); %Basophils 0.3 % (0.0-1.0); %Eosinophils 1.2 % (0.0-10.0); %Lymphocytes 27.3 % (21.0-51.0); %Monocytes 4.7 % (0.0-10.0); %Neutrophils 66.6 % (42.0-75.0); Mean Corpuscular HGB CONC 33.6 g/dL (32.0-36.0); Mean Corpuscular Hemoglobin 33.6 pg (27.0-31.0); Mean Platelet Volume 8.8 fL (7.4-10.4); Platelet Count 141 thou/uL (130-400); RBC Distribution Width 15.7 % (11.5-14.5); Red Blood Cell (RBC) Count 3.56 mill/uL (4.70-6.10); White Blood Cell (WBC) Count 5.8 thou/uL (4.8-10.8)
[2021-04-04 16:08] LABS: ALT (SGPT) 15 U/L (8-55); AST (SGOT) 27 U/L (5-34); Albumin 3.9 g/dL (3.4-4.8); Alkaline Phosphatase 51 U/L (40-110); Anion Gap 20 mmol/L (10-20); Bilirubin, Total 0.8 mg/dL (0.2-1.2); Calc. Creatinine Clearance 0 mL/min (70-130); Carbon Dioxide 22 mmol/L (23-31); Chloride 109 mmol/L (98-107); Globulin 2.6 g/dL (2.4-3.5); Glucose 88 mg/dL (83-110); Lipase 10 U/L (8-78); Protein, Total 6.5 g/dL (5.8-8.1); Sodium 146 mmol/L (136-145)
[2021-04-04 16:19] LABS: BUN (Urea Nitrogen) 121 mg/dL (8.4-25.7)
[2021-04-04 17:23] LABS: Bilirubin Negative (Negative); Blood, Urine 2+ (Negative); Clarity Turbid (Clear); Glucose, Urine (Dipstick) Normal (Negative); Ketone, Urine Negative (Negative); Leukocyte Negative Leu/uL (Negative); Nitrite Negative (Negative); Protein, Urine (Dipstick) 300 mg/dL (Neg-Trace); RBC/HPF 21-50 HPF (0-3); Specific Gravity, Urine 1.014 (1.002-1.036); Squamous Epithelial 0-3 HPF (0-3); Urobilinogen Normal mg/dL (Less than 2); WBC/HPF 0-3 HPF (0-3); pH, Urine 5.5 (5.0-9.0)
[2021-04-04 17:24] LABS: Bacteria/HPF Rare-Few HPF (None Seen)
[2021-04-04] MEDS ORDERED: Labetalol HCl 100 MG/20 ML VIAL ONE (17:32)
[2021-04-04] MEDS ORDERED: Senokot S 8.6-50 MG TAB PO PRN (17:49)
[2021-04-04] MEDS ORDERED: Sodium Chloride 0.9% 1,000 ML IV SCH (18:00)
[2021-04-04] MEDS: Sodium Chloride 0.45% 1,000 ML IV SCH (20:15)
[2021-04-04] MEDS ORDERED: Famotidine 20 MG TAB PO SCH (21:00)
[2021-04-05] MEDS: Heparin 5,000 UNITS/ML VIAL SC SCH ×3 (00:38→20:36)
[2021-04-05 04:46] LABS: #Eosinphils 0.1 thou/uL (0.0-0.7); #Lymphocytes 1.4 thou/uL (1.20-3.40); #Monocytes 0.2 thou/uL (0.11-0.59); #Neutrophils 3.5 thou/uL (1.40-6.50); %Basophils 0.3 % (0.0-1.0); %Eosinophils 1.3 % (0.0-10.0); %Lymphocytes 27.3 % (21.0-51.0); %Monocytes 4.4 % (0.0-10.0); %Neutrophils 66.8 % (42.0-75.0); Hemoglobin 11.5 g/dL (14.0-18.0); Mean Corpuscular HGB CONC 33.6 g/dL (32.0-36.0); Mean Corpuscular Hemoglobin 33.7 pg (27.0-31.0); Mean Platelet Volume 8.9 fL (7.4-10.4); Platelet Count 122 thou/uL (130-400); RBC Distribution Width 15.5 % (11.5-14.5); White Blood Cell (WBC) Count 5.2 thou/uL (4.8-10.8)
[2021-04-05 05:10] LABS: ALT (SGPT) 14 U/L (8-55); AST (SGOT) 25 U/L (5-34); Albumin 3.5 g/dL (3.4-4.8); Alkaline Phosphatase 47 U/L (40-110); Anion Gap 18 mmol/L (10-20); BUN (Urea Nitrogen) 125 mg/dL (8.4-25.7); Bilirubin, Total 0.7 mg/dL (0.2-1.2); Calc. Creatinine Clearance 12 mL/min (70-130); Calcium 9.5 mg/dL (7.8-10.44); Carbon Dioxide 20 mmol/L (23-31); Chloride 112 mmol/L (98-107); Globulin 2.6 g/dL (2.4-3.5); Glucose 77 mg/dL (83-110); Potassium 4.8 mmol/L (3.5-5.1); Protein, Total 6.1 g/dL (5.8-8.1); Sodium 145 mmol/L (136-145)
[2021-04-05] MEDS: Acetaminophen 325 MG TAB PO PRN ×2 (05:31→11:56)
[2021-04-05] MEDS: Sodium Chloride 0.45% 1,000 ML IV SCH ×3 (05:31→22:16)
[2021-04-05] MEDS ORDERED: Atorvastatin Calcium 40 MG TAB PO SCH (09:00)
[2021-04-05] MEDS ORDERED: Febuxostat 40 MG TAB PO SCH (09:00)
[2021-04-05] MEDS ORDERED: valACYclovir 500 MG TAB PO SCH (09:00)
[2021-04-05] MEDS: Calcitriol 0.25 MCG CAP PO SCH (09:11)
[2021-04-05] MEDS: Carvedilol 3.125 MG TAB PO SCH ×2 (09:11→20:36)
[2021-04-05] MEDS: Clopidogrel Bisulfate 75 MG TAB PO SCH (09:11)
[2021-04-05] MEDS: Dutasteride 0.5 MG CAP PO SCH (09:11)
[2021-04-05] MEDS ORDERED: Morphine 2 MG/ML VIAL SLOW IVP PRN (12:44)
[2021-04-05] MEDS: NIFEdipine XL 30 MG TAB PO SCH ×2 (13:59→14:43)
[2021-04-05] MEDS ORDERED: Nitroglycerin 2% Ointment 1 INCH/1 GM Packet TOP SCH (14:00)
[2021-04-05] MEDS: hydrALAZINE 25 MG TAB PO SCH ×2 (14:02→20:36)
[2021-04-05] MEDS ORDERED: Metoprolol Tartrate 5 MG/5 ML VIAL IVP PRN (14:17)
[2021-04-05 19:15] LABS: SARS-CoV-2 PCR by NAA Not Detected (NotDetected)
[2021-04-05] MEDS ORDERED: AMOXICILLIN 500 MG PO SCH (21:00)
[2021-04-05] MEDS ORDERED: AMOXicillin 250 MG CAP PO SCH (21:00)
[2021-04-05] MEDS: Nitroglycerin 2% Ointment 1 INCH/1 GM Packet TOP SCH (22:17)
[2021-04-06] MEDS: Sodium Chloride 0.45% 1,000 ML IV SCH ×3 (06:30→21:36)
[2021-04-06] MEDS: Nitroglycerin 2% Ointment 1 INCH/1 GM Packet TOP SCH ×2 (06:30→14:39)
[2021-04-06] MEDS ORDERED: NIFEdipine XL 60 MG TAB PO SCH (09:00)
[2021-04-06] MEDS: Heparin 5,000 UNITS/ML VIAL SC SCH ×2 (09:06→21:37)
[2021-04-06] MEDS: Aspirin 81 mg Enteric Coated Tablet PO SCH (09:06)
[2021-04-06] MEDS: Dutasteride 0.5 MG CAP PO SCH (09:06)
[2021-04-06] MEDS: Carvedilol 3.125 MG TAB PO SCH ×2 (09:06→20:58)
[2021-04-06] MEDS: Calcitriol 0.25 MCG CAP PO SCH (09:06)
[2021-04-06] MEDS: Clopidogrel Bisulfate 75 MG TAB PO SCH (09:06)
[2021-04-06] MEDS: hydrALAZINE 25 MG TAB PO SCH ×3 (09:06→20:58)
[2021-04-06 09:53] LABS: #Eosinphils 0.1 thou/uL (0.0-0.7); #Lymphocytes 1.3 thou/uL (1.20-3.40); #Monocytes 0.2 thou/uL (0.11-0.59); %Basophils 0.3 % (0.0-1.0); %Eosinophils 1.5 % (0.0-10.0); %Lymphocytes 28.4 % (21.0-51.0); %Monocytes 3.4 % (0.0-10.0); %Neutrophils 66.3 % (42.0-75.0); Hemoglobin 10.8 g/dL (14.0-18.0); Mean Corpuscular HGB CONC 32.1 g/dL (32.0-36.0); Mean Corpuscular Hemoglobin 32.2 pg (27.0-31.0); Mean Platelet Volume 9.2 fL (7.4-10.4); Platelet Count 70 thou/uL (130-400); RBC Distribution Width 15.5 % (11.5-14.5); Red Blood Cell (RBC) Count 3.37 mill/uL (4.70-6.10); White Blood Cell (WBC) Count 4.5 thou/uL (4.8-10.8)
[2021-04-06 10:12] LABS: ALT (SGPT) 12 U/L (8-55); AST (SGOT) 23 U/L (5-34); Albumin 3.2 g/dL (3.4-4.8); Alkaline Phosphatase 54 U/L (40-110); Anion Gap 14 mmol/L (10-20); BUN (Urea Nitrogen) 111 mg/dL (8.4-25.7); Bilirubin, Total 0.7 mg/dL (0.2-1.2); Calc. Creatinine Clearance 13 mL/min (70-130); Calcium 8.9 mg/dL (7.8-10.44); Carbon Dioxide 22 mmol/L (23-31); Chloride 110 mmol/L (98-107); Globulin 2.5 g/dL (2.4-3.5); Glucose 83 mg/dL (83-110); Potassium 4.3 mmol/L (3.5-5.1); Protein, Total 5.7 g/dL (5.8-8.1); Sodium 142 mmol/L (136-145)
[2021-04-06] MEDS: Melatonin 3 MG TAB PO PRN (21:36)
[2021-04-07] MEDS: Sodium Chloride 0.45% 1,000 ML IV SCH ×2 (00:26→08:47)
[2021-04-07 04:42] LABS: #Eosinphils 0.1 thou/uL (0.0-0.7); #Lymphocytes 1.6 thou/uL (1.20-3.40); #Monocytes 0.2 thou/uL (0.11-0.59); #Neutrophils 3.5 thou/uL (1.40-6.50); %Basophils 0.2 % (0.0-1.0); %Eosinophils 1.8 % (0.0-10.0); %Monocytes 4.3 % (0.0-10.0); %Neutrophils 63.7 % (42.0-75.0); Hemoglobin 11.8 g/dL (14.0-18.0); Mean Corpuscular HGB CONC 32.4 g/dL (32.0-36.0); Mean Corpuscular Hemoglobin 32.5 pg (27.0-31.0); Mean Platelet Volume 9.4 fL (7.4-10.4); Platelet Count 125 thou/uL (130-400); RBC Distribution Width 15.4 % (11.5-14.5); Red Blood Cell (RBC) Count 3.64 mill/uL (4.70-6.10); White Blood Cell (WBC) Count 5.5 thou/uL (4.8-10.8)
[2021-04-07 05:39] LABS: Anion Gap 15 mmol/L (10-20); BUN (Urea Nitrogen) 102 mg/dL (8.4-25.7); Calc. Creatinine Clearance 14 mL/min (70-130); Carbon Dioxide 20 mmol/L (23-31); Chloride 111 mmol/L (98-107); Glucose 90 mg/dL (83-110); Potassium 4.1 mmol/L (3.5-5.1); Sodium 142 mmol/L (136-145)
[2021-04-07] MEDS: Dutasteride 0.5 MG CAP PO SCH (08:35)
[2021-04-07] MEDS: Carvedilol 3.125 MG TAB PO SCH ×2 (08:35→21:39)
[2021-04-07] MEDS: hydrALAZINE 25 MG TAB PO SCH ×3 (08:35→21:38)
[2021-04-07] MEDS: Clopidogrel Bisulfate 75 MG TAB PO SCH (08:35)
[2021-04-07] MEDS: Aspirin 81 mg Enteric Coated Tablet PO SCH (08:35)
[2021-04-07] MEDS: Calcitriol 0.25 MCG CAP PO SCH (08:35)
[2021-04-07] MEDS: Heparin 5,000 UNITS/ML VIAL SC SCH ×2 (08:36→21:40)
[2021-04-07] MEDS ORDERED: Bisacodyl 10 MG SUPP PR PRN (17:12)
[2021-04-07] MEDS: Acetaminophen 325 MG TAB PO PRN (21:39)
[2021-04-07] MEDS: Melatonin 3 MG TAB PO PRN (21:39)
[2021-04-08] MEDS: Sodium Chloride 0.45% 1,000 ML IV SCH ×4 (01:01→17:05)
[2021-04-08 09:14] LABS: #Eosinphils 0.1 thou/uL (0.0-0.7); #Lymphocytes 1.2 thou/uL (1.20-3.40); #Monocytes 0.2 thou/uL (0.11-0.59); #Neutrophils 3.1 thou/uL (1.40-6.50); %Basophils 0.4 % (0.0-1.0); %Eosinophils 1.2 % (0.0-10.0); %Monocytes 5.2 % (0.0-10.0); %Neutrophils 67.3 % (42.0-75.0); Hemoglobin 12.8 g/dL (14.0-18.0); Mean Corpuscular HGB CONC 32.2 g/dL (32.0-36.0); Mean Corpuscular Hemoglobin 32.2 pg (27.0-31.0); Mean Platelet Volume 9.2 fL (7.4-10.4); Platelet Count 110 thou/uL (130-400); RBC Distribution Width 15.6 % (11.5-14.5); Red Blood Cell (RBC) Count 3.98 mill/uL (4.70-6.10); White Blood Cell (WBC) Count 4.6 thou/uL (4.8-10.8)
[2021-04-08] MEDS: Calcitriol 0.25 MCG CAP PO SCH (09:25)
[2021-04-08] MEDS: hydrALAZINE 25 MG TAB PO SCH ×3 (09:25→21:14)
[2021-04-08] MEDS: Dutasteride 0.5 MG CAP PO SCH (09:25)
[2021-04-08] MEDS: Carvedilol 3.125 MG TAB PO SCH ×2 (09:25→21:15)
[2021-04-08] MEDS: Aspirin 81 mg Enteric Coated Tablet PO SCH (09:25)
[2021-04-08] MEDS: Clopidogrel Bisulfate 75 MG TAB PO SCH (09:25)
[2021-04-08] MEDS: Heparin 5,000 UNITS/ML VIAL SC SCH ×2 (09:26→21:15)
[2021-04-08] MEDS: Polyethylene Glycol 3350 17 GM Packet PO SCH (09:26)
[2021-04-08 09:32] LABS: Anion Gap 15 mmol/L (10-20); BUN (Urea Nitrogen) 95 mg/dL (8.4-25.7); Calc. Creatinine Clearance 16 mL/min (70-130); Calcium 8.9 mg/dL (7.8-10.44); Carbon Dioxide 18 mmol/L (23-31); Chloride 109 mmol/L (98-107); Glucose 98 mg/dL (83-110); Sodium 138 mmol/L (136-145)
[2021-04-08] MEDS: Melatonin 3 MG TAB PO PRN (21:21)
[2021-04-08] MEDS ORDERED: ALPRAZolam 0.5 MG TAB PO SCH (22:00)
[2021-04-09] MEDS: Sodium Chloride 0.45% 1,000 ML IV SCH (03:39)
[2021-04-09] MEDS ORDERED: Morphine 2 MG/ML VIAL SLOW IVP PRN (08:59)
[2021-04-09] MEDS ORDERED: Haloperidol Lactate 5 MG/ML VIAL SLOW IVP PRN ×2 (09:00→11:47)
[2021-04-09] MEDS: hydrALAZINE 25 MG TAB PO SCH ×3 (09:57→21:36)
[2021-04-09] MEDS: Carvedilol 3.125 MG TAB PO SCH ×2 (09:57→21:37)
[2021-04-09] MEDS: Dutasteride 0.5 MG CAP PO SCH (09:58)
[2021-04-09] MEDS: Aspirin 81 mg Enteric Coated Tablet PO SCH (09:58)
[2021-04-09] MEDS: Calcitriol 0.25 MCG CAP PO SCH (09:58)
[2021-04-09] MEDS: Clopidogrel Bisulfate 75 MG TAB PO SCH (09:58)
[2021-04-09] MEDS: Polyethylene Glycol 3350 17 GM Packet PO SCH (09:59)
[2021-04-09] MEDS: Heparin 5,000 UNITS/ML VIAL SC SCH ×2 (10:12→21:38)
[2021-04-09 10:59] LABS: #Lymphocytes 1.1 thou/uL (1.20-3.40); #Monocytes 0.2 thou/uL (0.11-0.59); %Basophils 0.4 % (0.0-1.0); %Lymphocytes 25.5 % (21.0-51.0); %Monocytes 3.9 % (0.0-10.0); %Neutrophils 69.2 % (42.0-75.0); Hemoglobin 12.4 g/dL (14.0-18.0); Mean Corpuscular Hemoglobin 32.2 pg (27.0-31.0); Mean Platelet Volume 9.5 fL (7.4-10.4); Platelet Count 123 thou/uL (130-400); RBC Distribution Width 15.6 % (11.5-14.5); Red Blood Cell (RBC) Count 3.84 mill/uL (4.70-6.10); White Blood Cell (WBC) Count 4.3 thou/uL (4.8-10.8)
[2021-04-09 11:16] LABS: Anion Gap 13 mmol/L (10-20); BUN (Urea Nitrogen) 84 mg/dL (8.4-25.7); Calc. Creatinine Clearance 16 mL/min (70-130); Carbon Dioxide 20 mmol/L (23-31); Chloride 109 mmol/L (98-107); Glucose 113 mg/dL (83-110); Potassium 3.9 mmol/L (3.5-5.1); Sodium 138 mmol/L (136-145)
[2021-04-09] MEDS ORDERED: Lorazepam 2 MG/ML VIAL SLOW IVP PRN (11:46)
[2021-04-09 14:41] VITALS: BMI 25.2
[2021-04-10] MEDS: Heparin 5,000 UNITS/ML VIAL SC SCH (08:00)
[2021-04-10] MEDS: Dutasteride 0.5 MG CAP PO SCH (08:01)
[2021-04-10] MEDS: Calcitriol 0.25 MCG CAP PO SCH (08:01)
[2021-04-10] MEDS: Carvedilol 3.125 MG TAB PO SCH (08:01)
[2021-04-10] MEDS: hydrALAZINE 25 MG TAB PO SCH (08:01)
[2021-04-10] MEDS: Aspirin 81 mg Enteric Coated Tablet PO SCH (08:01)
[2021-04-10] MEDS: Clopidogrel Bisulfate 75 MG TAB PO SCH (08:01)
[2021-04-10] MEDS: Polyethylene Glycol 3350 17 GM Packet PO SCH (08:02)
[2021-04-10 11:47] VITALS: BP 137/83; TEMP 97.4
[2021-04-12] MEDS ORDERED: cloNIDine 0.2mg/24 Hour PATCH TD SCH (09:00)
== END 2021-04-10 11:48 | disposition hospice, home (50) | DRG 682 ==
LOC: ERS 14:13 → 2NO 17:12
PROVIDERS: ADMIT Internal Medicine; ATTEND Internal Medicine
DX: N17.9 Acute kidney failure, unspecified (principal); E43 Unspecified severe protein-calorie malnutrition; G93.41 Metabolic encephalopathy; I50.33 Acute on chronic diastolic (congestive) heart failure; C90.00 Multiple myeloma not having achieved remission; E87.0 Hyperosmolality and hypernatremia; E87.2 Acidosis; C83.31 Diffuse large B-cell lymphoma, lymph nodes of head, face, and neck; I13.2 Hypertensive heart and chronic kidney disease with heart failure and with stage 5 chronic kidney disease, or end stage renal disease; I69.951 Hemiplegia and hemiparesis following unspecified cerebrovascular disease affecting right dominant side; Z66 Do not resuscitate; Z20.822 Contact with and (suspected) exposure to COVID-19; E11.22 Type 2 diabetes mellitus with diabetic chronic kidney disease; E86.0 Dehydration; N18.5 Chronic kidney disease, stage 5; E87.5 Hyperkalemia; D63.1 Anemia in chronic kidney disease; I95.1 Orthostatic hypotension; E78.5 Hyperlipidemia, unspecified; I34.0 Nonrheumatic mitral (valve) insufficiency; Z79.899 Other long term (current) drug therapy; Z68.25 Body mass index [BMI] 25.0-25.9, adult; Z95.0 Presence of cardiac pacemaker
CPT/HCPCS: 36415; 36416; 51702; 70450; 70551; 71045; 76770; 80048; 80053; 81003; 81015; 83605; 83690; 83880; 85025; 87086; 93005; 96374; J1644; J2270; J7050; U0003; U0005